=== PATIENT | female | born 1945 | race Caucasian/White ===

== ENCOUNTER 2018-05-22 06:49 | Outpatient (CLI) | payer MEDICARE, OTHER ==
[~2018-05-22] VITALS: Ht 157.5 cm; Wt 62.6 kg
[2018-05-22] MEDS ORDERED: DULA1.5P2 SQ (16:08)
[2018-05-22] MEDS ORDERED: CETI10TA17 PO (16:08)
[2018-05-22] MEDS ORDERED: AMLO5TAB7 PO (16:08)
[2018-05-22] MEDS ORDERED: MONT10TA24 PO (16:08)
[2018-05-22] MEDS ORDERED: LINA1TAB5 PO (16:08)
[2018-05-22] MEDS ORDERED: ALEN70TA47 PO (16:08)
[2018-05-22] MEDS ORDERED: MULT1TAB69 PO (16:08)
[2018-05-22] MEDS ORDERED: RANI150T46 PO (16:08)
[2018-05-22] MEDS ORDERED: OLME40TA18 PO (16:08)
[2018-05-22] MEDS ORDERED: GLYB6TAB3 PO (16:08)
[2018-05-22] MEDS ORDERED: LINA145C PO (16:08)
== END 2018-05-22 16:17 | disposition home or self-care (01) ==
LOC: PREOP 06:49
PROVIDERS: ATTEND Specialist
DX: Z01.818 Encounter for other preprocedural examination (principal)

== ENCOUNTER 2018-05-26 08:54 | Day surgery (SDC) | payer MEDICARE, OTHER ==
[~2018-05-26] VITALS: Ht 157.5 cm; Wt 62.6 kg
[~2018-05-26 08:54] MED LIST: ALEN70TA47 PO; AMLO5TAB7 PO; CETI10TA17 PO; DULA1.5P2 SQ; GLYB6TAB3 PO; LINA145C PO; LINA1TAB5 PO; MONT10TA24 PO; MULT1TAB69 PO; OLME40TA18 PO; RANI150T46 PO
--- OUTSIDE RECORDS SUMMARY | 2018-05-26 08:59 | XMS REPORT ---
Author Author Hung Jaramillo [facility] Address [address] [place], [place] [id number] Care Team Providers Care Processing Lead Name Role Phone Hung Jaramillo PCP Hung Jaramillo PreferredProvider Allergies and Adverse Reactions Name Reaction Notes seasonal allergies Demerol SULFA (SULFONAMIDES) Plan of Treatment Planned Activity Comments Planned Date Planned Time Plan/Goal CBC with Auto 07/26/2017 12:00 AM Hemoglobin A1c 02/08/2013 12:00 AM CBC With Auto Differential 03/26/2014 12:00 AM CMP 03/26/2014 12:00 AM Lipid profile 03/26/2014 12:00 AM Medications Active Name Start Date Estimated Completion Date SIG Comments aspirin 81 mg oral tablet take 1 tablet by oral route daily Jentadueto 2.5-1,000 mg oral tablet 06/12/2013 TAKE 1 TABLET BY MOUTH TWICE DAILY WITH MEALS glyburide micronized 6 mg oral tablet 06/19/2013 TAKE 1/2 TABLET EACH MORNING AND 1 TABLET EACH EVENING alendronate 70 mg oral tablet 09/18/2013 TAKE 1 TABLET BY MOUTH ONCE WEEKLY IN THE MORNING AT LEAST 30 MINUTES BEFORE 1ST FOOD/BEVERAGE OR MEDICATION OF THE DAY montelukast 10 mg oral tablet 10/11/2013 TAKE 1 TABLET BY MOUTH EVERY DAY Jentadueto 2.5-1,000 mg oral tablet 12/05/2013 TAKE 1 TABLET BY MOUTH TWICE DAILY WITH MEALS Benicar HCT 40-25 mg oral tablet 12/25/2013 TAKE 1 TABLET BY MOUTH EVERY DAY alendronate 70 mg oral tablet 03/08/2014 TAKE 1 TABLET BY MOUTH ONCE WEEKLY IN THE MORNING AT LEAST 30 MINUTES BEFORE 1ST FOOD/BEVERAGE OR MEDICATION OF THE DAY Jentadueto 2.5-1,000 mg oral tablet 05/09/2014 TAKE 1 TABLET BY MOUTH TWICE DAILY WITH MEALS montelukast 10 mg oral tablet 07/16/2014 TAKE 1 TABLET BY MOUTH EVERY DAY glyburide micronized 6 mg oral tablet 07/22/2014 TAKE 1/2 TABLET EACH MORNING AND 1 TABLET EACH EVENING alendronate 70 mg oral tablet 07/22/2014 TAKE 1 TABLET BY MOUTH ONCE WEEKLY IN THE MORNING AT LEAST 30 MINUTES BEFORE 1ST FOOD/BEVERAGE OR MEDICATION OF THE DAY Jentadueto 2.5-1,000 mg oral tablet 09/10/2014 TAKE 1 TABLET BY MOUTH TWICE DAILY WITH MEALS Benicar HCT 40-25 mg oral tablet 10/31/2014 TAKE 1 TABLET BY MOUTH EVERY DAY alendronate 70 mg oral tablet 11/11/2014 TAKE 1 TABLET BY MOUTH ONCE WEEKLY IN THE MORNING AT LEAST 30 MINUTES BEFORE 1ST FOOD/BEVERAGE OR MEDICATION OF THE DAY alendronate 70 mg oral tablet 03/06/2015 TAKE 1 TABLET BY MOUTH ONCE WEEKLY IN THE MORNING AT LEAST 30 MINUTES BEFORE 1ST FOOD/BEVERAGE OR MEDICATION OF THE DAY alendronate 70 mg oral tablet 06/27/2015 TAKE 1 TABLET BY MOUTH ONCE WEEKLY IN THE MORNING AT LEAST 30 MINUTES BEFORE 1ST FOOD/BEVERAGE OR MEDICATION OF THE DAY montelukast 10 mg oral tablet 07/21/2015 TAKE 1 TABLET BY MOUTH EVERY DAY Jentadueto 2.5-1,000 mg oral tablet 08/11/2015 TAKE 1 TABLET BY MOUTH TWICE DAILY WITH MEALS glyburide micronized 6 mg oral tablet 08/14/2015 TAKE 1/2 TABLET BY MOUTH EACH MORNING AND 1 TABLET BY MOUTH EACH EVENING Benicar HCT 40-25 mg oral tablet 12/10/2015 TAKE 1 TABLET BY MOUTH EVERY DAY Contour Test Strips miscellaneous strip 01/16/2016 test blood sugar daily. ICD-10 E11.9 alendronate 70 mg oral tablet 02/06/2016 TAKE 1 TABLET BY MOUTH ONCE WEEKLY IN THE MORNING AT LEAST 30 MINUTES BEFORE 1ST FOOD/BEVERAGE OR MEDICATION OF THE DAY alendronate 70 mg oral tablet 02/06/2016 TAKE 1 TABLET BY MOUTH ONCE WEEKLY IN THE MORNING AT LEAST 30 MINUTES BEFORE 1ST FOOD/BEVERAGE OR MEDICATION OF THE DAY alendronate 70 mg oral tablet 06/25/2016 TAKE 1 TABLET BY MOUTH ONCE WEEKLY IN THE MORNING AT LEAST 30 MINUTES BEFORE 1ST FOOD/BEVERAGE OR MEDICATION OF THE DAY alendronate 70 mg oral tablet 06/25/2016 TAKE 1 TABLET BY MOUTH ONCE WEEKLY IN THE MORNING AT LEAST 30 MINUTES BEFORE 1ST FOOD/BEVERAGE OR MEDICATION OF THE DAY glyburide micronized 6 mg oral tablet 09/14/2016 TAKE 1/2 TABLET BY MOUTH EACH MORNING AND 1 TABLET BY MOUTH EACH EVENING *ASCENSIA CONTOUR TEST STRIPS 03/03/2017 TEST BLOOD SUGAR EVERY DAY amlodipine 5 mg oral tablet 03/31/2017 05/05/2018 TAKE 1 TABLET BY MOUTH ONCE EVERY DAY [facility] 04/05/2017 test blood sugars daily ICD-10 E11.9 Jentadueto 2.5-1,000 mg oral tablet 06/03/2017 04/29/2018 TAKE 1 TABLET BY MOUTH TWICE DAILY WITH MEALS montelukast 10 mg oral tablet 07/07/2017 07/02/2018 TAKE 1 TABLET BY MOUTH EVERY DAY alendronate 70 mg oral tablet 07/21/2017 06/22/2018 TAKE 1 TABLET BY MOUTH ONCE WEEKLY IN THE MORNING AT LEAST 30 MINUTES BEFORE 1ST FOOD/BEVERAGE OR MEDICATION OF THE DAY Linzess 145 mcg oral capsule 09/05/2017 04/03/2018 TAKE 1 CAPSULE BY MOUTH DAILY ON AN EMPTY STOMACH AT LEAST 30MIN BEFORE 1ST MEAL OF THE DAY glyburide micronized 6 mg oral tablet 10/12/2017 07/03/2018 TAKE 1/2 TABLET BY MOUTH EACH MORNING AND 1 TABLET BY MOUTH EACH EVENING Trulicity 0.75 mg/0.5 mL subcutaneous pen injector 11/03/2017 INJECT 0.5ML (0.75MG) SUB-Q ONCE WEEKLY ROTATING INJECTION SITES olmesartan 40 mg oral tablet 02/09/2018 TAKE 1 TABLET BY MOUTH DAILY Name Start Date Expiration Date SIG Comments amoxicillin 500 mg oral capsule 08/11/2009 08/21/2009 take 2 capsules by oral route 3 times a day for 5 days Medrol (Kurt) 4 mg oral tablets,dose pack 08/11/2009 08/21/2009 take as directed for 5 days Augmentin 875-125 mg oral tablet 10/23/2009 11/20/2009 take 1 tablet by oral route every 12 hours for 14 days OneTouch Ultra Test miscellaneous strip 11/23/2010 11/23/2010 use as directed Levaquin 750 mg oral tablet 05/19/2011 06/02/2011 take 1 tablet (750 mg) by oral route once daily for 7 days Medrol (Kurt) 4 mg oral tablets,dose pack 07/15/2011 07/15/2011 take as directed diclofenac sodium 50 mg oral tablet,delayed release (/EC) 12/29/20112011 TAKE 1 TABLET BY MOUTH TWICE DAILY glyburide micronized 6 mg oral tablet 04/24/2012 06/29/2012 TAKE 1/2 TABLET EACH MORNING AND 1 TABLET EACH EVENING Levaquin 500 mg oral tablet 05/09/2012 05/23/2012 take 1 tablet (500 mg) by oral route once daily for 7 days pantoprazole 40 mg oral tablet,delayed release (DR/EC) 05/16/2012 06/15/2012 TAKE 1 TABLET BY MOUTH EVERY DAY metformin 500 mg oral tablet extended release 24 hr 06/22/2012 07/22/2012 TAKE 2 TABLETS BY MOUTH TWICE DAILY WelChol 625 mg oral tablet 08/03/2012 09/02/2012 TAKE 3 TABLETS BY MOUTH TWICE DAILY amoxicillin-pot clavulanate 875-125 mg oral tablet 09/04/2012 09/14/2012 TAKE 1 TABLET BY MOUTH EVERY 12 HOURS Levbid 0.375 mg oral tablet extended release 12 hr 10/02/2012 10/12/2012 take 1 tablet (0.375 mg) by oral route every 12 hours for 10 days amlodipine 5 mg oral tablet 10/09/2012 02/21/2014 TAKE 1 TABLET BY MOUTH EVERY DAY Benicar HCT 40-25 mg oral tablet 10/09/2012 11/13/2013 TAKE 1 TABLET BY MOUTH EVERY DAY montelukast 10 mg oral tablet 10/09/2012 10/04/2013 TAKE 1 TABLET BY MOUTH EVERY DAY Jentadueto 2.5-1,000 mg oral tablet 11/01/2012 05/30/2013 take 1 tablet by oral route 2 times per day with meals for 30 days Exosome Diagnostics2 miscellaneous kit 11/08/2012 11/08/2012 test BS dailyICD-9 250.00 Zithromax Z-Kurt 250 mg oral tablet 05/21/2013 05/31/2013 take 2 tablets (500 mg) by oral route once daily for 1 day then 1 tablet (250 mg) by oral route once daily for 4 days tramadol 50 mg oral tablet 01/08/2011 10/02/2012 TAKE 1 TABLET BY MOUTH TWICE DAILY Voltaren 1 % topical gel 04/09/2011 10/02/2012 apply 4 gram to the affected area(s) by topical route 4 times per day for 30 days Pennsaid 1.5 % topical drops 08/05/2011 10/02/2012 apply 40 drops to affected area by topical route 4 times per day promethazine-codeine 6.25-10 mg/5 mL oral syrup 08/13/2013 take 5 milliliters by oral route every 6 hours as needed, not to exceed 30 mL in 24 hours Augmentin 875-125 mg oral tablet 10/01/2013 10/08/2013 take 1 tablet by oral route every 12 hours for 7 days amoxicillin 875 mg oral tablet 10/26/2013 11/23/2013 take 1 tablet (875 mg) by oral route every 12 hours for 14 days amoxicillin 875 mg oral tablet 06/17/2014 07/01/2014 take 1 tablet (875 mg) by oral route every 12 hours for 14 days Zithromax Z-Kurt 250 mg oral tablet 08/09/2014 08/14/2014 take 2 tablets (500 mg) by oral route once daily for 1 day then 1 tablet (250 mg) by oral route once daily for 4 days Zithromax Z-Kurt 250 mg oral tablet 08/15/2014 take 2 tablets (500 mg) by oral route once daily for 1 day then 1 tablet (250 mg) by oral route once daily for 4 days amoxicillin 875 mg oral tablet 04/02/2015 04/16/2015 take 1 tablet (875 mg) by oral route every 12 hours for 14 days Invokana 300 mg oral tablet 01/16/2016 02/15/2016 take 1 tablet (300 mg) by oral route once daily before the first meal of the day for 30 days Tamiflu 75 mg oral capsule 07/28/2016 08/07/2016 take 1 capsule (75 mg) by oral route once daily for 10 days amoxicillin 875 mg oral tablet 07/28/2016 08/11/2016 take 1 tablet (875 mg) by oral route every 12 hours for 14 days Nexium 40 mg oral capsule,delayed release(DR/EC) 02/08/2017 03/10/2017 take 1 capsule (40 mg) by oral route once daily for 30 days Cipro 500 mg oral tablet 02/11/2017 02/18/2017 take 1 tablet (500 mg) by oral route every 12 hours for 7 days Augmentin 875-125 mg oral tablet 08/15/2017 08/22/2017 take 1 tablet by oral route every 12 hours for 7 days amoxicillin-pot clavulanate 875-125 mg oral tablet 08/22/2017 08/29/2017 TAKE 1 TABLET BY MOUTH EVERY 12 HOURS FOR 7 DAYS Discontinued Name Start Date Discontinued Date SIG Comments Benicar 40 mg oral tablet 09/18/2009 take 1 tablet (40 mg) by oral route once daily Zyrtec 10 mg oral tablet 08/13/2013 take 1 tablet (10 mg) by oral route once daily Ultracet 37.5-325 mg oral tablet 01/13/2010 1 tab bid/PRN meloxicam 15 mg oral tablet 01/20/2010 02/12/2010 take 1 tablet (15 mg) by oral route once daily for 30 days Anusol-HC 2.5 % rectal cream 09/28/2012 11/14/2012 apply to the affected area( s) by topical route 4 times per day baclofen 10 mg oral tablet 09/29/2012 11/14/2012 take 1 tablet by oral route 3 times a day as needed Nasonex 50 mcg/actuation nasal spray,non-aerosol 05/16/2013 09/08/2016 spray 2 sprays in each nostril by intranasal route once daily Zithromax Z-Kurt 250 mg oral tablet 08/13/2013 10/26/2013 take 2 tablets (500 mg) by oral route once daily for 1 day then 1 tablet (250 mg) by oral route once daily for 4 days Fosamax 70 mg oral tablet 02/05/2016 09/08/2016 take 1 tablet (70 mg) by oral route once weekly in the morning, at least 30 min before first food, beverage, or medication of day amoxicillin 875 mg oral tablet 08/13/2016 09/08/2016 take 1 tablet (875 mg) by oral route every 12 hours for 14 days Benicar HCT 40-25 mg oral tablet 01/17/2017 02/14/2017 TAKE 1 TABLET BY MOUTH EVERY DAY Amitiza 8 mcg oral capsule 01/31/2017 02/02/2017 take 1 capsule (8 mcg) by oral route 2 times per day with food and water for 10 days Benicar 40 mg oral tablet 02/14/2017 03/02/2018 take 1 tablet (40 mg) by oral route once daily ciprofloxacin HCl 0.2 % otic (ear) dropperette 04/15/2017 03/02/2018 instill 0.25 milliliter (0.5 mg) into left ear by otic route every 12 hours for 7 days Problem List Description Status Onset acid reflux Active Diabetes mellitus, type II Active Hypercholesterolemia Active Hypertension Active Lumbar spondylosis Active Scoliosis Active SI joint pain Active Vital Signs Date Time BP-Sys(mm[Hg] BP-Park(mm[Hg]) HR(bpm) RR(rpm) Temp WT HT HC BMI BSA BMI Percentile O2 Sat(%) 03/02/2018 1:42:00 PM 144 mmHg 80 mmHg 107 bpm 18 rpm 98.2 F 138.5 lbs 62 in 25.3317 kg/m 1.6578 m 97 % 04/15/2017 10:19:00 AM 134 mmHg 76 mmHg 82 bpm 18 rpm 97.4 F 144 lbs 62 in 26.34 kg/m2 1.69 m2 99 % 02/09/2017 8:31:00 AM 132 mmHg 64 mmHg 84 bpm 16 rpm 97.2 F 144 lbs 62 in 26.34 kg/m2 1.6904 m 98 % 02/08/2017 3:10:00 PM 130 mmHg 63 mmHg 86 bpm 18 rpm 98.2 F 147 lbs 61 in 27.7751 kg/m 1.69 m2 98 % 01/31/2017 2:57:00 PM 136 mmHg 74 mmHg 88 bpm 16 rpm 98 F 150 lbs 61 in 28.34 kg/m2 1.7112 m 97 % 09/08/2016 11:14:00 AM 130 mmHg 82 mmHg 86 bpm 16 rpm 98.4 F 147 lbs 61 in 27.7751 kg/m 1.69 m2 98 % 07/28/2016 11:10:00 AM 128 mmHg 74 mmHg 103 bpm 18 rpm 99.6 F 149 lbs 61 in 28.15 kg/m2 1.7055 m 98 % 01/16/2016 9:31:00 AM 136 mmHg 68 mmHg 102 bpm 16 rpm 98.8 F 150 lbs 61 in 28.342 kg/m 1.71 m2 97 % 04/02/2015 9:07:00 AM 148 mmHg 80 mmHg 94 bpm 18 rpm 98.9 F 155 lbs 61 in 29.29 kg/m2 1.7395 m 01/13/2015 8:33:00 AM 126 mmHg 64 mmHg 71 bpm 18 rpm 98.2 F 156 lbs 61 in 29.4756 kg/m 1.75 m2 12/13/2014 8:33:00 AM 126 mmHg 76 mmHg 80 bpm 18 rpm 98 F 153 lbs 61 in 28.91 kg/m2 1.73 m2 06/17/2014 2:06:00 PM 124 mmHg 68 mmHg 96 bpm 20 rpm 97.3 F 153 lbs 61 in 28.9088 kg/m 1.7283 m 03/26/2014 3:03:00 PM 128 mmHg 64 mmHg 88 bpm 18 rpm 98.8 F 155 lbs 61 in 29.29 kg/m2 1.74 m2 10/26/2013 9:07:00 AM 136 mmHg 78 mmHg 96 bpm 18 rpm 97.6 F 150.375 lbs 61 in 28.4128 kg/m 1.7134 m 100 % 10/01/2013 3:36:00 PM 142 mmHg 66 mmHg 107 bpm 18 rpm 99.1 F 152.125 lbs 61 in 28.74 kg/m2 1.72 m2 98 % 08/13/2013 9:18:00 AM 136 mmHg 80 mmHg 88 bpm 18 rpm 98 F 149 lbs 63 in 26.3939 kg/m 1.7333 m 05/16/2013 8:50:00 AM 132 mmHg 74 mmHg 88 bpm 18 rpm 98.4 F 150 lbs 63 in 26.57 kg/m2 1.74 m2 01/16/2013 10:33:00 AM 110 mmHg 62 mmHg 84 bpm 16 rpm 96.8 F 141 lbs 63 in 24.9768 kg/m 1.6861 m 11/14/2012 3:47:00 PM 120 mmHg 68 mmHg 84 bpm 20 rpm 98.6 F 141 lbs 63 in 24.98 kg/m2 1.69 m2 10/09/2012 9:12:00 AM 142 mmHg 74 mmHg 110 bpm 18 rpm 98.6 F 135 lbs 63 in 23.9139 kg/m 1.6498 m 10/04/2012 2:14:00 PM 140 mmHg 80 mmHg 124 bpm 18 rpm 98.3 F 146 lbs 63 in 25.86 kg/m2 1.72 m2 98 % 10/02/2012 3:10:00 PM 120 mmHg 70 mmHg 124 bpm 18 rpm 97.9 F 146.5 lbs 63 in 25.951 kg/m 1.7187 m 96 % 06/28/2012 10:01:00 AM 134 mmHg 64 mmHg 88 bpm 18 rpm 97.2 F 152 lbs 64 in 26.09 kg/m2 1.76 m2 05/09/2012 10:35:00 AM 130 mmHg 64 mmHg 88 bpm 18 rpm 98 F 149 lbs 64 in 25.5755 kg/m 1.747 m 04/28/2012 8:40:00 AM 108 mmHg 70 mmHg 66 bpm 16 rpm 98.2 F 150 lbs 64 in 25.75 kg/m2 1.75 m2 04/18/2012 2:36:00 PM 125 mmHg 75 mmHg 88 bpm 18 rpm 97.8 F 150 lbs 64 in 25.7472 kg/m 1.7528 m 98 % 03/29/2012 9:56:00 AM 132 mmHg 80 mmHg 74 bpm 16 rpm 96.8 F 152 lbs 64 in 26.09 kg/m2 1.76 m2 12/20/2011 8:41:00 AM 112 mmHg 70 mmHg 70 bpm 16 rpm 97.1 F 152 lbs 64 in 26.0905 kg/m 1.7645 m 11/04/2011 8:59:00 AM 110 mmHg 60 mmHg 72 bpm 16 rpm 97.5 F 152 lbs 64 in 26.09 kg/m2 1.76 m2 08/05/2011 8:37:00 AM 126 mmHg 64 mmHg 72 bpm 16 rpm 97.8 F 154 lbs 64 in 26.4338 kg/m 1.776 m 06/14/2011 10:55:00 AM 148 mmHg 72 mmHg 84 bpm 20 rpm 98.3 F 151 lbs 63.5 in 26.33 kg/m2 1.75 m2 05/19/2011 9:08:00 AM 148 mmHg 82 mmHg 80 bpm 18 rpm 98.6 F 153 lbs 63.5 in 26.6773 kg/m 1.7633 m 04/28/2011 8:50:00 AM 110 mmHg 62 mmHg 80 bpm 16 rpm 97.8 F 04/09/2011 10:24:00 AM 124 mmHg 80 mmHg 76 bpm 16 rpm 97.9 F 152 lbs 63.5 in 26.503 kg/m 1.7576 m 09/23/2010 10:38:00 AM 140 mmHg 80 mmHg 92 bpm 20 rpm 98.3 F 149 lbs 08/20/2010 10:07:00 AM 150 mmHg 78 mmHg 88 bpm 20 rpm 99.6 F 148 lbs 07/06/2010 8:05:00 AM 124 mmHg 80 mmHg 88 bpm 16 rpm 96.9 F 150 lbs 05/21/2010 8:02:00 AM 110 mmHg 62 mmHg 80 bpm 16 rpm 97.2 F 149.25 lbs 05/08/2010 10:53:00 AM 130 mmHg 74 mmHg 88 bpm 18 rpm 97.7 F 142 lbs 97 % 05/04/2010 4:08:00 PM 122 mmHg 78 mmHg 82 bpm 98.1 F 149.375 lbs 99 % 02/12/2010 1:36:00 PM 126 mmHg 82 mmHg 72 bpm 18 rpm 97.4 F 145 lbs 01/13/2010 10:43:00 AM 132 mmHg 84 mmHg 72 bpm 16 rpm 99 F 144 lbs 10/23/2009 2:21:00 PM 130 mmHg 78 mmHg 72 bpm 20 rpm 147 lbs 09/24/2009 4:27:00 PM 134 mmHg 70 mmHg 72 bpm 16 rpm 98.6 F 145 lbs 09/18/2009 8:35:00 AM 144 mmHg 82 mmHg 88 bpm 98.7 F 146 lbs 08/27/2009 4:09:00 PM 142 mmHg 76 mmHg 72 bpm 16 rpm 98.3 F 149 lbs 08/11/2009 3:46:00 PM 154 mmHg 90 mmHg 88 bpm 20 rpm 97.9 F 147.25 lbs 63 in 26.0839 kg/m 1.723 m 08/05/2009 9:32:00 AM 154 mmHg 80 mmHg 86 bpm 24 rpm 98.7 F 149 lbs 07/02/2009 11:32:00 AM 148 mmHg 74 mmHg 80 bpm 16 rpm 98.6 F 149 lbs 06/18/2009 4:06:00 PM 152 mmHg 84 mmHg 72 bpm 16 rpm 98.6 F 149 lbs Social History Name Description Comments Lives with spouse in a one-level house with adult grown children High school graduate Has never used alcohol Denies illicit substance abuse 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 Tobacco Never smoker History of Procedures Date Ordered Description Order Status 04/09/2011 12:00 AM Misbah [id number] ONEYDA Reviewed 04/09/2011 12:00 AM INJ TENDON SHEATH/LIGAMENT Reviewed 05/06/2011 12:00 AM DRAIN/INJ JOINT/BURSA W/O US Reviewed 05/06/2011 12:00 AM HYALURONAN OR DERIVATIVE, SYNVISC, FOR INTRA-ARTICULAR INJECTION Reviewed 05/13/2011 12:00 AM DRAIN/INJ JOINT/BURSA W/O US Reviewed 05/13/2011 12:00 AM HYALURONAN OR DERIVATIVE, SYNVISC, FOR INTRA-ARTICULAR INJECTION Reviewed 05/20/2011 12:00 AM DRAIN/INJ JOINT/BURSA W/O US Reviewed 05/20/2011 12:00 AM HYALURONAN OR DERIVATIVE, SYNVISC, FOR INTRA-ARTICULAR INJECTION Reviewed 05/19/2011 12:00 AM FLU VACCINE 3 YRS & > IM Reviewed 06/14/2011 12:00 AM Decadron Inj. per 1mg-[facility] [place] [id number] Reviewed 06/14/2011 12:00 AM Depo-Medrol 80 Mg [facility] [id number] Reviewed 01/08/2016 12:00 AM MAMMOGRAM BOTH BREASTS Reviewed 01/08/2016 12:00 AM COMPLETE CBC W/AUTO DIFF WBC Reviewed 01/08/2016 12:00 AM COMPREHEN METABOLIC PANEL Reviewed 01/08/2016 12:00 AM LIPID PANEL Reviewed 01/08/2016 12:00 AM GLYCOSYLATED HEMOGLOBIN TEST Reviewed 08/05/2011 12:00 AM DRAIN/INJ JOINT/BURSA W/O US Reviewed 08/05/2011 12:00 AM Kenalog 40 Mg Im-[facility] [place]#[id number] Reviewed 11/04/2011 12:00 AM DRAIN/INJ JOINT/BURSA W/O US Reviewed 11/04/2011 12:00 AM Kenalog 40 Mg Im-[facility] [place]#[id number] Reviewed 09/18/2009 12:00 AM COMPLETE CBC W/AUTO DIFF WBC Reviewed 09/18/2009 12:00 AM COMPREHEN METABOLIC PANEL Reviewed 09/18/2009 12:00 AM LIPID PANEL Reviewed 09/18/2009 12:00 AM GLYCOSYLATED HEMOGLOBIN TEST Reviewed 09/08/2016 12:00 AM Rocephin 1 gram Injection Reviewed 02/25/2012 12:00 AM IMMUNIZATION ADMIN Reviewed 02/25/2012 12:00 AM TDAP VACCINE 7 YRS/> IM Reviewed 01/31/2017 12:00 AM COMPLETE CBC W/AUTO DIFF WBC Returned 01/31/2017 12:00 AM COMPREHEN METABOLIC PANEL Returned 01/31/2017 12:00 AM GLYCOSYLATED HEMOGLOBIN TEST Returned 01/31/2017 12:00 AM ASSAY THYROID STIM HORMONE Returned 01/31/2017 12:00 AM VITAMIN B-12 Returned 02/07/2017 12:00 AM METABOLIC PANEL TOTAL CA Returned 02/08/2017 12:00 AM METABOLIC PANEL TOTAL CA Returned 02/08/2017 12:00 AM COMPLETE CBC W/AUTO DIFF WBC Returned 02/09/2017 12:00 AM COMPLETE CBC W/AUTO DIFF WBC Returned 02/09/2017 12:00 AM COMPREHEN METABOLIC PANEL Returned 02/14/2017 12:00 AM METABOLIC PANEL TOTAL CA Returned 02/16/2017 12:00 AM METABOLIC PANEL TOTAL CA Returned 03/23/2012 12:00 AM MAMMOGRAM SCREENING Reviewed 03/29/2012 12:00 AM Misbah [id number] ONEYDA Reviewed 03/29/2012 12:00 AM INJ TENDON SHEATH/LIGAMENT Reviewed 04/18/2012 12:00 AM METABOLIC PANEL TOTAL CA Reviewed 04/18/2012 12:00 AM COMPLETE CBC W/AUTO DIFF WBC Reviewed 04/18/2012 12:00 AM GLYCOSYLATED HEMOGLOBIN TEST Reviewed 04/05/2017 12:00 AM MAMMOGRAM BOTH BREASTS Returned 07/26/2017 12:00 AM COMPREHEN METABOLIC PANEL Returned 07/26/2017 12:00 AM LIPID PANEL Returned 07/26/2017 12:00 AM GLYCOSYLATED HEMOGLOBIN TEST Returned 09/25/2012 12:00 AM COMPLETE CBC W/AUTO DIFF WBC Reviewed 09/25/2012 12:00 AM COMPREHEN METABOLIC PANEL Reviewed 09/25/2012 12:00 AM GLYCOSYLATED HEMOGLOBIN TEST Reviewed 09/25/2012 12:00 AM ASSAY THYROID STIM HORMONE Reviewed 09/25/2012 12:00 AM ASSAY TOXIN OR ANTITOXIN Reviewed 09/25/2012 12:00 AM OVA AND PARASITES SMEARS Reviewed 02/08/2013 12:00 AM ROUTINE VENIPUNCTURE Reviewed 02/08/2013 12:00 AM COMPLETE CBC W/AUTO DIFF WBC Reviewed 02/08/2013 12:00 AM COMPREHEN METABOLIC PANEL Reviewed 02/08/2013 12:00 AM LIPID PANEL Reviewed 05/16/2013 12:00 AM PNEUMOCOCCAL VACC 7 FIDE IM Reviewed 01/13/2010 12:00 AM Misbah [id number] ONEYDA Reviewed 01/13/2010 12:00 AM INJ TENDON SHEATH/LIGAMENT Reviewed 04/07/2010 12:00 AM COMPLETE CBC W/AUTO DIFF WBC Reviewed 04/07/2010 12:00 AM COMPREHEN METABOLIC PANEL Reviewed 04/07/2010 12:00 AM LIPID PANEL Reviewed 04/07/2010 12:00 AM GLYCOSYLATED HEMOGLOBIN TEST Reviewed 05/21/2010 12:00 AM Misbah [id number] ONEYDA Reviewed 05/21/2010 12:00 AM INJ TENDON SHEATH/LIGAMENT Reviewed 08/05/2009 12:00 AM X-RAY EXAM OF ELBOW Reviewed 03/26/2014 12:00 AM GLYCOSYLATED HEMOGLOBIN TEST Reviewed 09/23/2010 12:00 AM METABOLIC PANEL TOTAL CA Reviewed 09/23/2010 12:00 AM COMPLETE CBC W/AUTO DIFF WBC Reviewed 09/23/2010 12:00 AM GLYCOSYLATED HEMOGLOBIN TEST Reviewed 06/17/2014 12:00 AM COMPLETE CBC W/AUTO DIFF WBC Reviewed 06/17/2014 12:00 AM COMPREHEN METABOLIC PANEL Reviewed 06/17/2014 12:00 AM ASSAY THYROID STIM HORMONE Reviewed 06/17/2014 12:00 AM ASSAY OF PARATHORMONE Reviewed 12/13/2014 12:00 AM X-RAY EXAM OF KNEE 3 Reviewed 01/07/2015 12:00 AM COMPLETE CBC W/AUTO DIFF WBC Reviewed 01/07/2015 12:00 AM COMPREHEN METABOLIC PANEL Reviewed 01/07/2015 12:00 AM LIPID PANEL Reviewed 01/07/2015 12:00 AM GLYCOSYLATED HEMOGLOBIN TEST Reviewed 01/07/2015 12:00 AM MAMMOGRAM SCREENING Reviewed Results Summary Date and Description Results 04/14/2010 8:53 AM TRIGLYCERIDES 121.0 mg/dLCHOLESTEROL 177.0 mg/dLHDL 41.0 mg/ dLTOT CHOL/HDL 4.3 LDL (CALC) 112.0 mg/dLGLYCOHEMOGLOBIN A1C 7.20 %GLUCOSE 128.0 mg/dLSODIUM 136.0 mmol/LPOTASSIUM 4.20 mmol/LCHLORIDE 100.0 mmol/LCO2 27.0 mmol/LBUN 21.0 mg/dLCREATININE 0.70 mg/dLSGOT/AST 14.0 IU/LSGPT/ALT 12.0 IU /LALK PHOS 74.0 IU/LTOTAL PROTEIN 7.20 g/dLALBUMIN 4.20 g/dLTOTAL BILI 1.20 mg/ dLCALCIUM 9.80 mg/dLAGE 64 GFR NonAA 85 GFR AA 103 eGFR >60 mL/min/1.73 m2eGFR AA* >60 WBC 7.7 RBC 4.25 HGB 13.40 g/dLHCT 39.40 %MCV 93.0 fLMCH 31.50 pgMCHC 34.0 g/dLRDW SD 45 RDW CV 13.30 %MPV 9.80 fLPLT 396 NRBC# 0.00 NRBC% 0.0 %NEUT 49.40 %%LYMP 41.50 %%MONO 6.90 %%EOS 1.80 %%BASO 0.40 %#NEUT 3.81 #LYMP 3.20 # MONO 0.53 #EOS 0.14 #BASO 0.03 MANUAL DIFF NOT IND 09/23/2010 11:27 AM GLYCOHEMOGLOBIN A1C 7.60 %GLUCOSE 188.0 mg/dLSODIUM 139.0 mmol/LPOTASSIUM 3.90 mmol/LCHLORIDE 101.0 mmol/LCO2 26.0 mmol/LBUN 22.0 mg/ dLCREATININE 0.70 mg/dLCALCIUM 9.90 mg/dLAGE 65 GFR NonAA 85 GFR AA 103 eGFR > 60 mL/min/1.73 m2eGFR AA* >60 WBC 15.0 RBC 4.08 HGB 12.70 g/dLHCT 39.0 %MCV 96.0 fLMCH 31.10 pgMCHC 32.60 g/dLRDW SD 48 RDW CV 13.50 %MPV 10.20 fLPLT 404 NRBC# 0.00 NRBC% 0.0 %NEUT 71.90 %%LYMP 20.40 %%MONO 7.0 %%EOS 0.50 %%BASO 0.20 %#NEUT 10.79 #LYMP 3.06 #MONO 1.05 #EOS 0.07 #BASO 0.03 MANUAL DIFF SEE BELOW SEGS 65 BANDS 4 LYMPHS 20 MONOS 11 04/18/2012 3:15 PM GLUCOSE 154.0 mg/dLSODIUM 139.0 mmol/LPOTASSIUM 4.80 mmol/ LCHLORIDE 104.0 mmol/LCO2 23.0 mmol/LBUN 38.0 mg/dLCREATININE 1.20 mg/dLCALCIUM 10.10 mg/dLAGE 66 GFR NonAA 45 GFR AA 55 eGFR 45 eGFR AA* 55 WBC 8.7 RBC 3.84 HGB 11.70 g/dLHCT 35.80 %MCV 93.0 fLMCH 30.50 pgMCHC 32.70 g/dLRDW SD 47 RDW CV 13.90 %MPV 10.10 fLPLT 446 NRBC# 0.00 NRBC% 0.0 %NEUT 57.10 %%LYMP 33.60 %%MONO 6.70 %%EOS 2.30 %%BASO 0.30 %#NEUT 4.95 #LYMP 2.91 #MONO 0.58 #EOS 0.20 #BASO 0.03 MANUAL DIFF NOT IND GLYCOHEMOGLOBIN A1C 7.60 % 09/25/2012 9:24 AM GLUCOSE 242.0 mg/dLSODIUM 134.0 mmol/LPOTASSIUM 4.60 mmol/ LCHLORIDE 98.0 mmol/LCO2 24.0 mmol/LBUN 21.0 mg/dLCREATININE 0.90 mg/dLSGOT/AST 16.0 IU/LSGPT/ALT 22.0 IU/LALK PHOS 117.0 IU/LTOTAL PROTEIN 7.60 g/dLALBUMIN 3.70 g/dLTOTAL BILI 0.60 mg/dLCALCIUM 10.20 mg/dLAGE 67 GFR NonAA 63 GFR AA 76 eGFR 60 eGFR AA* 60 TSH 1.370 uIU/mLWBC 9.6 RBC 3.40 HGB 10.0 g/dLHCT 31.30 % MCV 92.0 fLMCH 29.40 pgMCHC 31.90 g/dLRDW SD 45 RDW CV 13.80 %MPV 8.90 fLPLT 1028 PLTS PLTS NRBC# 0.00 NRBC% 0.0 %NEUT 75.10 %%LYMP 15.80 %%MONO 7.70 %%EOS 1.10 %%BASO 0.30 %#NEUT 7.24 #LYMP 1.52 #MONO 0.74 #EOS 0.11 #BASO 0.03 MANUAL DIFF SEE BELOW SEGS 76 BANDS 4 LYMPHS 12 MONOS 10 GLYCOHEMOGLOBIN A1C 7.80 % 09/25/2012 4:34 PM C DIFFICILE NEGATIVE -- C DIFF TOXIN NOT DETECTED SOURCE: STOOL 02/28/2013 8:15 AM WBC 7.7 RBC 3.98 HGB 11.70 g/dLHCT 36.60 %MCV 92.0 fLMCH 29.40 pgMCHC 32.0 g/dLRDW SD 54 RDW CV 15.90 %MPV 10.0 fLPLT 500 NRBC# 0.00 NRBC % 0.0 %NEUT 60.10 %%LYMP 30.0 %%MONO 8.0 %%EOS 1.40 %%BASO 0.50 %#NEUT 4.64 # LYMP 2.32 #MONO 0.62 #EOS 0.11 #BASO 0.04 MANUAL DIFF NOT IND GLUCOSE 152.0 mg/ dLSODIUM 138.0 mmol/LPOTASSIUM 4.80 mmol/LCHLORIDE 103.0 mmol/LCO2 24.0 mmol/ LBUN 24.0 mg/dLCREATININE 1.0 mg/dLSGOT/AST 16.0 IU/LSGPT/ALT 10.0 IU/LALK PHOS 75.0 IU/LTOTAL PROTEIN 7.70 g/dLALBUMIN 4.30 g/dLTOTAL BILI 0.80 mg/dLCALCIUM 10.60 mg/dLAGE 67 GFR NonAA 56 GFR AA 68 eGFR 56 eGFR AA* 60 TRIGLYCERIDES 135.0 mg/dLCHOLESTEROL 218.0 mg/dLHDL 42.0 mg/dLTOT CHOL/HDL 5.2 LDL (CALC) 149.0 mg/dLHGB A1C 6.80 %Est Avg Glucose 148.5 mg/dL 06/12/2014 8:27 AM HGB A1C 8.60 %Est Avg Glucose 200.1 mg/dL 07/08/2014 11:22 AM WBC 9.0 RBC 3.96 HGB 12.50 g/dLHCT 37.70 %MCV 95.0 fLMCH 31.60 pgMCHC 33.20 g/dLRDW SD 47 RDW CV 13.40 %MPV 10.10 fLPLT 445 NRBC# 0.00 NRBC% 0.0 %NEUT 70.20 %%LYMP 23.50 %%MONO 5.10 %%EOS 1.0 %%BASO 0.20 %#NEUT 6.28 #LYMP 2.10 #MONO 0.46 #EOS 0.09 #BASO 0.02 MANUAL DIFF NOT IND GLUCOSE 260.0 mg/dLSODIUM 138.0 mmol/LPOTASSIUM 4.40 mmol/LCHLORIDE 104.0 mmol/LCO2 22.0 mmol/LBUN 24.0 mg/dLCREATININE 1.0 mg/dLSGOT/AST 13.0 IU/LSGPT/ALT 13.0 IU/ LALK PHOS 71.0 IU/LTOTAL PROTEIN 7.50 g/dLALBUMIN 4.20 g/dLTOTAL BILI 0.40 mg/ dLCALCIUM 10.10 mg/dLAGE 68 GFR NonAA 55 GFR AA 67 eGFR 55 eGFR AA* 60 TSH 2.320 uIU/mLPTH, Intact 26 01/21/2015 8:26 AM TRIGLYCERIDES 140.0 mg/dLCHOLESTEROL 183.0 mg/dLHDL 33.0 mg/ dLTOT CHOL/HDL 5.5 LDL (CALC) 122.0 mg/dLGLUCOSE 154.0 mg/dLSODIUM 141.0 mmol/ LPOTASSIUM 4.50 mmol/LCHLORIDE 106.0 mmol/LCO2 24.0 mmol/LBUN 33.0 mg/ dLCREATININE 1.0 mg/dLSGOT/AST 14.0 IU/LSGPT/ALT 7.0 IU/LALK PHOS 67.0 IU/ LTOTAL PROTEIN 6.90 g/dLALBUMIN 4.0 g/dLTOTAL BILI 0.60 mg/dLCALCIUM 9.80 mg/ dLAGE 69 GFR NonAA 55 GFR AA 67 eGFR 55 eGFR AA* >60 WBC 6.9 RBC 3.80 HGB 11.90 g/dLHCT 36.10 %MCV 95.0 fLMCH 31.30 pgMCHC 33.0 g/dLRDW SD 48 RDW CV 13.90 %MPV 9.80 fLPLT 376 NRBC# 0.00 NRBC% 0.0 %NEUT 61.10 %%LYMP 27.90 %%MONO 7.70 %%EOS 2.90 %%BASO 0.40 %#NEUT 4.19 #LYMP 1.92 #MONO 0.53 #EOS 0.20 #BASO 0.03 MANUAL DIFF NOT IND Hemoglobin A1c 8.0 %Estim. Avg Glu (eAG) 183 mg/dL 01/14/2016 8:55 AM GLUCOSE 217.0 mg/dLSODIUM 138.0 mmol/LPOTASSIUM 4.50 mmol/ LCHLORIDE 102.0 mmol/LCO2 24.0 mmol/LBUN 28.0 mg/dLCREATININE 1.0 mg/dLSGOT/AST 13.0 IU/LSGPT/ALT 12.0 IU/LALK PHOS 80.0 IU/LTOTAL PROTEIN 7.60 g/dLALBUMIN 4.60 g/dLTOTAL BILI 0.80 mg/dLCALCIUM 10.30 mg/dLAGE 70 GFR NonAA 55 GFR AA 67 eGFR 55 eGFR AA* >60 WBC 8.4 RBC 4.15 HGB 13.0 g/dLHCT 39.0 %MCV 94.0 fLMCH 31.30 pgMCHC 33.30 g/dLRDW SD 44 RDW CV 13.0 %MPV 10.40 fLPLT 395 NRBC# 0.00 NRBC% 0.0 %NEUT 59.0 %%LYMP 31.20 %%MONO 7.90 %%EOS 1.20 %%BASO 0.50 %#NEUT 4.94 #LYMP 2.61 #MONO 0.66 #EOS 0.10 #BASO 0.04 MANUAL DIFF NOT IND HGB A1C 10.10 %Est Avg Glucose 243.2 mg/dLTRIGLYCERIDES 150.0 mg/dLCHOLESTEROL 229.0 mg/ dLHDL 36.0 mg/dLTOT CHOL/HDL 6.4 LDL (CALC) 163.0 mg/dL History Of Immunizations Name Date Admin Mfg Name Mfg Code Trade Name Lot# Route Inj Vis Given Vis Pub CVX Influenza 05/19/2011 sanofi pasteur PMC FLUZONE [id number] Intramuscular Left Deltoid 05/19/2011 02/10/2011 141 Tdap 02/25/2012 sanofi pasteur PMC ADACEL [id number] Intramuscular Left Deltoid 02/25/2012 12/01/2006 999 Pneumococcal 05/16/[id number] Intramuscular Left Deltoid 05/16/2013 02/09/2013 133 History of Past Illness Name Date of Onset Comments Scoliosis, Idiopathic Jun 18 2009 4:12PM Cervical spondylosis without myelopathy Jun 18 2009 4:12PM SI joint pain Jun 18 2009 4:12PM Diabetes Mellitus, Type II Jul 02 2009 11:38AM acid reflux Diabetes mellitus, type II Hypertension Hypercholesterolemia Scoliosis cervical & thoracic Lumbar spondylosis SI joint pain bilateral SI joint pain & dysfunction Joint Pain Aug 05 2009 9:32AM Humerus Fracture, Closed Aug 05 2009 9:32AM Sinusitis, Acute Aug 11 2009 3:50PM Scoliosis, Idiopathic Aug 27 2009 4:14PM Cervical spondylosis without myelopathy Aug 27 2009 4:14PM SI joint pain Aug 27 2009 4:14PM Hypertension Sep 18 2009 8:38AM Diabetes Mellitus, Type II Sep 18 2009 8:38AM Scoliosis, Idiopathic Sep 24 2009 4:31PM Cervical spondylosis without myelopathy Sep 24 2009 4:31PM SI joint pain Sep 24 2009 4:31PM Muscle Spasm Sep 24 2009 4:31PM Sinusitis, Acute Oct 23 2009 2:23PM Scoliosis, Idiopathic Jan 13 2010 10:45AM Cervical spondylosis without myelopathy Jan 13 2010 10:45AM SI joint pain Jan 13 2010 10:45AM Muscle Spasm Jan 13 2010 10:45AM Pain in joint; hand Jan 13 2010 10:45AM Trigger finger (acquired) Jan 13 2010 11:31AM Scoliosis, Idiopathic Feb 12 2010 1:40PM Cervical spondylosis without myelopathy Feb 12 2010 1:40PM SI joint pain Feb 12 2010 1:40PM Muscle Spasm Feb 12 2010 1:40PM Pain in joint; hand Feb 12 2010 1:40PM Hypertension Apr 07 2010 8:51AM Diabetes Mellitus, Type II Apr 07 2010 8:51AM Hyperlipidemia Apr 07 2010 8:51AM Upper Respiratory Infection May 08 2010 11:01AM Sinusitis, Acute May 04 2010 4:18PM Pain in joint; lower leg/knee May 21 2010 8:07AM Trigger finger (acquired) May 21 2010 8:07AM Trigger finger (acquired) May 21 2010 8:38AM Pain in joint; lower leg/knee Jul 06 2010 8:13AM Trigger finger (acquired) Jul 06 2010 8:13AM Sinusitis, Acute Aug 20 2010 10:11AM Diabetes Mellitus, Type II Sep 23 2010 10:41AM Sinusitis Sep 23 2010 10:41AM Trigger finger (acquired) Apr 09 2011 10:47AM Pain in joint; lower leg/knee Apr 09 2011 10:44AM Trigger finger (acquired) Apr 09 2011 10:44AM Pain in joint; lower leg/knee Apr 28 2011 8:52AM Trigger finger (acquired) Apr 28 2011 8:52AM Osteoarthritis, knee May 06 2011 9:46AM Pain, knee May 06 2011 9:46AM Osteoarthritis, knee May 13 2011 10:16AM Pain, knee May 13 2011 10:16AM Sinusitis May 19 2011 9:06AM Osteoarthritis, knee May 20 2011 8:43AM Pain, knee May 20 2011 8:43AM Upper Respiratory Infection Jun 14 2011 10:53AM Pain in joint; lower leg/knee Aug 05 2011 8:38AM Osteoarthrosis, lower leg Aug 05 2011 9:13AM Pain in joint; lower leg/knee Nov 04 2011 9:00AM Osteoarthrosis, lower leg Nov 04 2011 9:52AM Pain in joint; lower leg/knee Dec 20 2011 8:53AM Adacel Mar 01 2012 12:38PM Screening Mammogram Mar 23 2012 1:41PM Pain in joint; lower leg/knee Mar 29 2012 9:57AM Trigger finger (acquired) Mar 29 2012 10:40AM Breast Mass Apr 18 2012 2:38PM Diabetes Mellitus, Type II Apr 18 2012 2:38PM Pain in joint; lower leg/knee Apr 28 2012 9:01AM Sinusitis, Acute May 09 2012 10:37AM Upper Respiratory Infection Jun 28 2012 9:12AM Diabetes Mellitus, Type II Sep 25 2012 7:50AM Diarrhea Sep 25 2012 7:50AM Fecal impaction Oct 04 2012 2:20PM Diarrhea Oct 02 2012 3:20PM Diabetes Mellitus, Type II Oct 09 2012 9:15AM Hypertension Oct 09 2012 9:15AM Diabetes Mellitus, Type II Nov 14 2012 3:53PM Pain in joint; lower leg/knee Jan 16 2013 10:43AM Hypertension Feb 08 2013 3:30PM Diabetes Mellitus, Type II Feb 08 2013 3:30PM Hypercholesterolemia Feb 08 2013 3:30PM Upper Respiratory Infection May 16 2013 8:55AM Bronchitis, Acute Aug 13 2013 9:25AM Sinusitis Oct 01 2013 3:40PM Sinusitis Oct 26 2013 9:09AM Hypertension Mar 26 2014 3:08PM Diabetes Mellitus, Type II Mar 26 2014 3:08PM Sinusitis Mar 26 2014 3:08PM Diabetes Mellitus, Type II, Uncontrolled Jun 17 2014 2:10PM Sinusitis Jun 17 2014 2:10PM Hypercalcemia Jun 17 2014 2:10PM Osteoarthritis knee Dec 13 2014 8:41AM Pes anserine bursitis Dec 13 2014 8:41AM Hypertension Jan 07 2015 5:33PM Diabetes Mellitus, Type II Jan 07 2015 5:33PM Hyperlipidemia Jan 07 2015 5:33PM Screening Mammogram Jan 07 2015 5:36PM Osteoarthritis knee Jan 13 2015 8:36AM Pes anserine bursitis Jan 13 2015 8:36AM Diabetes Mellitus, Type II Apr 02 2015 9:18AM Otitis Media, Acute Apr 02 2015 9:18AM Encounter for screening mammogram for breast cancer Jan 08 2016 2:34PM Hypertension Jan 08 2016 2:38PM Diabetes Mellitus, Type II Jan 08 2016 2:38PM Hyperlipidemia Jan 08 2016 2:38PM Diabetes Mellitus, Type II, Uncontrolled Jan 16 2016 9:34AM Sinusitis Jul 28 2016 11:18AM Sinusitis Sep 08 2016 11:19AM Diabetes Mellitus, Type II Jan 31 2017 3:04PM Fatigue Jan 31 2017 3:04PM Constipation Jan 31 2017 3:04PM Hyponatremia Feb 07 2017 1:56PM Diabetes Mellitus, Type II Feb 08 2017 3:12PM Hyponatremia Feb 08 2017 3:12PM Hyponatremia Feb 09 2017 8:03AM Hyponatremia Feb 09 2017 8:35AM Hypokalemia Feb 14 2017 5:11PM Hyponatremia Feb 16 2017 9:11AM Encounter for screening mammogram for breast cancer Apr 05 2017 11:00AM Otitis externa Apr 15 2017 10:21AM Hypertension Jul 26 2017 1:42PM Diabetes Mellitus, Type II Jul 26 2017 1:42PM Hyperlipidemia Jul 26 2017 1:42PM Hypertension Mar 02 2018 1:44PM Diabetes Mellitus, Type II Mar 02 2018 1:44PM Payers Insurance Name Company Name Plan Name Plan Number Policy Number Policy Group Number Start Date BCBS Bcbs [facility] [id number] Wednesday, 2004 Usd 503 Usd 503 [id number] Wednesday, 2009 Medicare Part A zMedicare A Secondary DOES NOT HAVE MEDICARE Wednesday, 2012 History of Encounters Visit Date Visit Type Provider 03/02/2018 Office visit Hung Jaramillo MD 04/15/2017 Office visit Hung Jaramillo MD 02/09/2017 Office visit Hung Jaramillo MD 02/08/2017 Office visit Hung Jaramillo MD 01/31/2017 Office visit Hung Jaramillo MD 09/08/2016 Office visit Hung Jaramillo MD 07/28/2016 Office visit Hung Jaramillo MD 01/16/2016 Office visit Hung Jaramillo MD 04/02/2015 Office visit Hung Jaramillo MD 01/13/2015 Office visit Sunny Lebron MD 12/13/2014 Office visit Sunny Lebron MD 06/17/2014 Office visit 06/17/2014 Office visit Hung Jaramillo MD 03/26/2014 Office visit Hung Jaramillo MD 10/26/2013 Office visit Hung Jaramillo MD 10/01/2013 Office visit Hung Jaramillo MD 08/13/2013 Office visit Hung Jaramillo MD 05/16/2013 Office visit Hung Jaramillo MD 01/16/2013 Office visit Anil Argueta MD 11/14/2012 Office visit Hung Jaramillo MD 10/09/2012 Office visit Hung Jaramillo MD 10/04/2012 Office visit Shiva Haywood MD 10/04/2012 Hospital Shiva Haywood MD 10/02/2012 Office visit Shiva Haywood MD 09/13/2012 Hospital Candida Stuart MD 06/28/2012 Office visit Hung Jaramillo MD 05/09/2012 Office visit Hung Jaramillo MD 04/28/2012 Office visit Anil Argueta MD 04/18/2012 Office visit Hung Jaramillo MD 03/29/2012 Office visit Anil Argueta MD 02/25/2012 Nurse visit Jeannette Mcgrath RN 01/03/2012 Hospital Albaro Pina MD 12/20/2011 Office visit Anil Argueta MD 11/04/2011 Office visit Anil Argueta MD 08/05/2011 Office visit Anil Argueta MD 06/14/2011 Office visit Hung Jaramillo MD 05/20/2011 Office visit Anil Argueta MD 05/19/2011 Office visit Hung Jaramillo MD 05/13/2011 Office visit Anil Argueta MD 05/06/2011 Office visit Anil Argueta MD 04/28/2011 Office visit Anil Argueta MD 04/09/2011 Office visit Anil Argueta MD 09/23/2010 Office visit Hung Jaramillo MD 08/20/2010 Office visit Hung Jaramillo MD 07/06/2010 Office visit Anil Argueta MD 05/21/2010 Office visit Anil Argueta MD 05/08/2010 Office visit Hung Jaramillo MD 05/04/2010 Office visit Matthew Rodarte MD 02/12/2010 Office visit Anil Argueta MD 01/13/2010 Office visit Anil Argueta MD 10/23/2009 Office visit Hung Jaramillo MD 09/24/2009 Office visit Anil Argueta MD 09/18/2009 Office visit Hung Jaramillo MD 08/27/2009 Office visit Anil Argueta MD 08/11/2009 Office visit Hung Jaramillo MD 08/05/2009 Office visit Noé Reddy DO 07/02/2009 Office visit Hung Jaramillo MD 06/18/2009 Office visit Anil Argueta MD 06/18/2009 Laboratory Hung Jaramillo MD 04/21/2009 Office visit Anil Argueta MD 03/21/2009 Office visit Anil Argueta MD
[2018-05-26] MEDS ORDERED: TIMOLOL MALEATE 0.5% 5 ML (TIMOPTIC) BTL OU PRN (09:00)
[2018-05-26] MEDS ORDERED: POVIDONE (BETADINE) OPHTH SOLN 5% 30 ML OP ONE (09:00)
[2018-05-26] MEDS ORDERED: LIDOCAINE PF 1% 2 ML AMP IR PRN (09:00)
[2018-05-26] MEDS ORDERED: MOXIFLOXACIN OPHTH SOLN 5 MG/ML 0.3 ML SYRINGE OP ONE (09:00)
--- OUTSIDE RECORDS SUMMARY | 2018-05-26 09:00 | XMS REPORT ---
Author Author Hung Jaramillo [facility] Address [address] [place], [place] [id number] Care Team Providers Care Insurance Advisor Name Role Phone Hung Jaramillo PCP Unavailable Hung Jaramillo PreferredProvider Unavailable Allergies and Adverse Reactions Name Reaction Notes seasonal allergies Demerol SULFA (SULFONAMIDES) Plan of Treatment Planned Activity Comments Planned Date Planned Time Plan/Goal BMP 02/07/2017 12:00 AM CBC with Auto 02/09/2017 12:00 AM CMP (comprehensive metabolic panel) 02/09/2017 12:00 AM Hemoglobin A1c 02/08/2013 12:00 AM [...] EACH MORNING AND 1 TABLET EACH EVENING promethazine-codeine 6.25-10 mg/5 mL oral syrup 08/13/2013 take 5 milliliters by oral route every 6 hours as needed, not to exceed 30 mL in 24 hours alendronate 70 mg oral tablet 09/18/2013 TAKE [...] 1ST FOOD/BEVERAGE OR MEDICATION OF THE DAY amlodipine 5 mg oral tablet 02/24/2016 TAKE 1 TABLET BY MOUTH EVERY DAY alendronate 70 mg oral tablet 06/25/2016 TAKE 1 TABLET BY MOUTH ONCE WEEKLY IN THE MORNING AT LEAST 30 MINUTES BEFORE 1ST FOOD/BEVERAGE OR MEDICATION OF THE DAY alendronate 70 mg oral tablet 06/25/2016 TAKE 1 TABLET BY MOUTH ONCE WEEKLY IN THE MORNING AT LEAST 30 MINUTES BEFORE 1ST FOOD/BEVERAGE OR MEDICATION OF THE DAY Jentadueto 2.5-1,000 mg oral tablet 07/07/2016 TAKE 1 TABLET BY MOUTH TWICE DAILY WITH MEALS montelukast 10 mg oral tablet 07/07/2016 TAKE 1 TABLET BY MOUTH EVERY DAY alendronate 70 mg oral tablet 08/19/2016 TAKE 1 TABLET BY MOUTH ONCE WEEKLY IN THE MORNING AT LEAST 30 MINUTES BEFORE 1ST FOOD/BEVERAGE OR MEDICATION OF THE DAY glyburide micronized 6 mg oral tablet 09/14/2016 TAKE 1/2 TABLET BY MOUTH EACH MORNING AND 1 TABLET BY MOUTH EACH EVENING glyburide micronized 6 mg oral tablet 09/14/2016 TAKE 1/2 TABLET BY MOUTH EACH MORNING AND 1 TABLET BY MOUTH EACH EVENING Benicar HCT 40-25 mg oral tablet 01/17/2017 TAKE 1 TABLET BY MOUTH EVERY DAY Nexium 40 mg oral capsule,delayed release(DR/EC) 02/08/2017 03/10/2017 take 1 capsule (40 mg) by oral route once daily for 30 days Trulicity 0.75 mg/0.5 mL subcutaneous pen injector 02/08/2017 inject 0.5 milliliter (0.75 mg) by subcutaneous route every 7 days in the abdomen, thigh, or upper arm rotating injection sites Name Start Date Expiration Date SIG Comments [...] diclofenac sodium 50 mg oral tablet,delayed release (DR/EC) 12/29/20112011 TAKE 1 TABLET BY MOUTH TWICE [...] per day with meals for 30 days IXcellerate2 miscellaneous kit 11/08/2012 11/08/2012 test BS dailyICD-9 [...] by topical route 4 times per day Augmentin 875-125 mg oral tablet 10/01/2013 10/08/2013 [...] route every 12 hours for 14 days Discontinued Name Start Date Discontinued Date SIG [...] route every 12 hours for 14 days Amitiza 8 mcg oral capsule 01/31/2017 02/02/2017 take 1 capsule (8 mcg) by oral route 2 times per day with food and water for 10 days Problem List Description Status Onset acid reflux Active Diabetes Mellitus, Type II Active Hypercholesterolemia Active Hypertension Active Lumbar spondylosis Active Scoliosis Active SI joint pain Active Vital Signs Date Time BP-Sys(mm[Hg] BP-Park(mm[Hg]) HR(bpm) RR(rpm) Temp WT HT HC BMI BSA BMI Percentile O2 Sat(%) 02/09/2017 8:31:00 AM 132 mmHg 64 mmHg 84 bpm 16 rpm 97.2 F 144 lbs 62 in 26.34 kg/m2 1.69 m2 98 % 02/08/2017 3:10:00 PM 130 mmHg 63 mmHg 86 bpm 18 rpm 98.2 F 147 lbs 61 in 27.7751 kg/m 1.694 m 98 % 01/31/2017 2:57:00 PM 136 mmHg 74 mmHg 88 bpm 16 rpm 98 F 150 lbs 61 in 28.34 kg/m2 1.71 m2 97 % 09/08/2016 11:14:00 AM 130 mmHg 82 mmHg 86 bpm 16 rpm 98.4 F 147 lbs 61 in 27.7751 kg/m 1.694 m 98 % 07/28/2016 11:10:00 AM 128 mmHg 74 mmHg 103 bpm 18 rpm 99.6 F 149 lbs 61 in 28.15 kg/m2 1.71 m2 98 % 01/16/2016 9:31:00 AM 136 mmHg 68 mmHg 102 bpm 16 rpm 98.8 F 150 lbs 61 in 28.342 kg/m 1.7112 m 97 % 04/02/2015 9:07:00 AM 148 mmHg 80 mmHg 94 bpm 18 rpm 98.9 F 155 lbs 61 in 29.29 kg/m2 1.74 m2 01/13/2015 8:33:00 AM 126 mmHg 64 mmHg 71 bpm 18 rpm 98.2 F 156 lbs 61 in 29.4756 kg/m 1.7451 m 12/13/2014 8:33:00 AM 126 mmHg 76 mmHg [...] rpm 97.9 F 147.25 lbs 63 in 26.08 kg/m2 1.72 m2 08/05/2009 9:32:00 AM 154 mmHg 80 mmHg [...] alcohol Denies illicit substance abuse 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 per 1mg-[facility] [id number] Reviewed 06/14/2011 12:00 AM Depo-Medrol 80 Mg [facility] [id number] Reviewed 01/08/2016 12:00 AM MAMMOGRAM BOTH BREASTS Reviewed 01/08/2016 12:00 AM COMPLETE CBC W/AUTO DIFF WBC Reviewed 01/08/2016 12:00 AM COMPREHEN METABOLIC PANEL Reviewed 01/08/2016 12:00 AM LIPID PANEL Reviewed 01/08/2016 12:00 AM GLYCOSYLATED HEMOGLOBIN TEST Reviewed 08/05/2011 12:00 AM DRAIN/INJ JOINT/BURSA W/O US Reviewed 08/05/2011 12:00 AM Kenalog 40 Mg Im-[facility]#[id number] Reviewed 11/04/2011 12:00 AM DRAIN/INJ JOINT/BURSA W/O US Reviewed 11/04/2011 12:00 AM Kenalog 40 Mg Im-[facility]#[id number] Reviewed 09/18/2009 12:00 AM COMPLETE CBC W/AUTO [...] Returned 01/31/2017 12:00 AM VITAMIN B-12 Returned 02/08/2017 12:00 AM METABOLIC PANEL TOTAL CA Returned 02/08/2017 12:00 AM COMPLETE CBC W/AUTO DIFF WBC Returned 03/23/2012 12:00 AM MAMMOGRAM SCREENING Reviewed 03/29/2012 12:00 AM Misbah [id number] ONEYDA Reviewed 03/29/2012 12:00 AM INJ TENDON SHEATH/LIGAMENT Reviewed 04/18/2012 12:00 AM METABOLIC PANEL TOTAL CA Reviewed 04/18/2012 12:00 AM COMPLETE CBC W/AUTO DIFF WBC Reviewed 04/18/2012 12:00 AM GLYCOSYLATED HEMOGLOBIN TEST Reviewed 09/25/2012 12:00 AM COMPLETE CBC W/AUTO DIFF [...] FIDE IM Reviewed 01/13/2010 12:00 AM Misbah [id number] ONEYDA Reviewed 01/13/2010 12:00 AM INJ TENDON SHEATH/LIGAMENT Reviewed 04/07/2010 12:00 AM COMPLETE CBC W/AUTO DIFF WBC Reviewed 04/07/2010 12:00 AM COMPREHEN METABOLIC PANEL Reviewed 04/07/2010 12:00 AM LIPID PANEL Reviewed 04/07/2010 12:00 AM GLYCOSYLATED HEMOGLOBIN TEST Reviewed 05/21/2010 12:00 AM Misbah [id number] ONEYDA Reviewed 05/21/2010 12:00 AM INJ TENDON [...] Avg Glucose 148.5 mg/dL 06/12/2014 8:27 AM GLUCOSE 138.0 mg/dLSODIUM 139.0 mmol/LPOTASSIUM 4.40 mmol/ LCHLORIDE 101.0 mmol/LCO2 23.0 mmol/LBUN 29.0 mg/dLCREATININE 1.0 mg/dLSGOT/AST 14.0 IU/LSGPT/ALT 12.0 IU/LALK PHOS 74.0 IU/LTOTAL PROTEIN 8.0 g/dLALBUMIN 4.50 g/dLTOTAL BILI 0.60 mg/dLCALCIUM 11.30 mg/dLAGE 68 GFR NonAA 55 GFR AA 67 eGFR 55 eGFR AA* 60 TRIGLYCERIDES 112.0 mg/dLCHOLESTEROL 202.0 mg/dLHDL 39.0 mg/ dLTOT CHOL/HDL 5.2 LDL (CALC) 141.0 mg/dLWBC 8.4 RBC 4.18 HGB 13.0 g/dLHCT 38.90 %MCV 93.0 fLMCH 31.10 pgMCHC 33.40 g/dLRDW SD 46 RDW CV 13.50 %MPV 10.30 fLPLT 462 NRBC# 0.00 NRBC% 0.0 %NEUT 63.50 %%LYMP 27.80 %%MONO 6.50 %%EOS 1.80 % %BASO 0.40 %#NEUT 5.36 #LYMP 2.35 #MONO 0.55 #EOS 0.15 #BASO 0.03 MANUAL DIFF NOT IND HGB A1C 8.60 %Est Avg Glucose 200.1 [...] mg/dLTOT CHOL/HDL 6.4 LDL (CALC) 163.0 mg/dL 02/07/2017 11:05 AM TSH 1.410 uIU/mLGLUCOSE 179.0 mg/dLSODIUM 124.0 mmol/ LPOTASSIUM 4.40 mmol/LCHLORIDE 88.0 mmol/LCO2 23.0 mmol/LBUN 18.0 mg/ dLCREATININE 1.10 mg/dLSGOT/AST 20.0 IU/LSGPT/ALT 19.0 IU/LALK PHOS 81.0 IU/ LTOTAL PROTEIN 8.40 g/dLALBUMIN 4.60 g/dLTOTAL BILI 0.50 mg/dLCALCIUM 9.80 mg/ dLAGE 71 GFR NonAA 49 GFR AA 59 eGFR 49 eGFR AA* 59 WBC 9.2 RBC 4.03 HGB 12.60 g /dLHCT 36.70 %MCV 91.0 fLMCH 31.30 pgMCHC 34.30 g/dLRDW SD 41 RDW CV 12.50 %MPV 9.30 fLPLT 510 NRBC# 0.00 NRBC% 0.0 %NEUT 73.20 %%LYMP 18.70 %%MONO 7.20 %%EOS 0.40 %%BASO 0.20 %#NEUT 6.72 #LYMP 1.72 #MONO 0.66 #EOS 0.04 #BASO 0.02 MANUAL DIFF NOT IND VITAMIN B12 306.0 pg/mLHGB A1C 9.0 %Est Avg Glucose 211.6 mg/dL 02/08/2017 4:05 PM WBC 10.7 RBC 3.51 HGB 11.30 g/dLHCT 32.0 %MCV 91.0 fLMCH 32.20 pgMCHC 35.30 g/dLRDW SD 41 RDW CV 12.50 %MPV 8.70 fLPLT 434 NRBC# 0.00 NRBC% 0.0 %NEUT 66.10 %%LYMP 24.20 %%MONO 8.10 %%EOS 0.90 %%BASO 0.40 %#NEUT 7.06 #LYMP 2.58 #MONO 0.87 #EOS 0.10 #BASO 0.04 MANUAL DIFF NOT IND GLUCOSE 159.0 mg/dLSODIUM 119.0 mmol/LPOTASSIUM 4.80 mmol/LCHLORIDE 86.0 mmol/LCO2 21.0 mmol/LBUN 24.0 mg/dLCREATININE 1.10 mg/dLCALCIUM 9.40 mg/dLAGE 71 GFR NonAA 49 GFR AA 59 eGFR 49 eGFR AA* 59 History Of Immunizations Name Date Admin Mfg Name Mfg Code Trade Name Lot# Route Inj Vis Given Vis Pub CVX Influenza 05/19/2011 sanofi pasteur PMC Fluzone [id number] Intramuscular Left Deltoid 05/19/2011 02/10/2011 141 Tdap 02/25/2012 sanofi pasteur PMC ADACEL [id number] Intramuscular Left Deltoid 02/25/2012 12/01/2006 999 Pneumococcal 05/16/2013 Alycia WAL Prevnar [id number] Intramuscular Left Deltoid 05/16/2013 02/09/2013 133 History of Past Illness Name Date of Onset Comments Scoliosis, Idiopathic Jun 18 2009 4:12PM Cervical spondylosis without myelopathy Jun 18 2009 4:12PM SI joint pain Jun 18 2009 4:12PM Diabetes Mellitus, Type II Jul 02 2009 11:38AM acid reflux Diabetes Mellitus, Type II Hypertension Hypercholesterolemia Scoliosis cervical & thoracic [...] 2017 8:03AM Hyponatremia Feb 09 2017 8:35AM Payers Insurance Name Company Name Plan Name Plan Number Policy Number Policy Group Number Start Date BCBS [employer] [place] [id number] Wednesday, 2004 Usd 503 Usd 503 [id number] Wednesday, 2009 Medicare Part A zzzMedicare A Secondary DOES NOT HAVE MEDICARE Wednesday, 2012 History of Encounters Visit Date Visit Type Provider 02/09/2017 Office visit Hung Jaramillo MD 02/08/2017 [...] 10/04/2012 Office visit Shiva Haywood MD 10/04/2012 [facility] Shiva Haywood MD 10/02/2012 Office visit Shiva Haywood MD 09/13/2012 [facility] Candida Stuart MD 06/28/2012 Office visit Hung Jaramillo MD 05/09/2012 Office visit Hung Jaramillo MD 04/28/2012 Office visit Anil Argueta MD 04/18/2012 Office visit Hung Jaramillo MD 03/29/2012 Office visit Anil Argueta MD 02/25/2012 Nurse visit Jeannette Mcgrath RN 01/03/2012 [facility] Albaro Pina MD 12/20/2011 Office visit [...]
--- OUTSIDE RECORDS SUMMARY | 2018-05-26 09:02 | XMS REPORT ---
Author Author Hung Jaramillo [facility] Address [address] [place], [place] [id number] Care Team Providers Care Bunk Assembler Name Role Phone Hung Jaramillo PCP Unavailable Hung Jaramillo PreferredProvider Unavailable Allergies and Adverse Reactions Name Reaction Notes seasonal allergies Demerol SULFA (SULFONAMIDES) Plan of Treatment Planned Activity Comments Planned Date Planned Time Plan/Goal Mammography; bilateral 04/05/2017 12:00 AM Hemoglobin A1c 02/08/2013 12:00 AM [...] 1 TABLET BY MOUTH EACH EVENING Benicar 40 mg oral tablet 02/14/2017 take 1 tablet (40 mg) by oral route once daily Linzess 145 mcg oral capsule 02/17/2017 take 1 capsule (145 mcg) by oral route once daily on an empty stomach at least 30 minutes before 1st meal of the day Trulicity 0.75 mg/0.5 mL subcutaneous pen injector 02/22/2017 inject 0.5 milliliter (0.75 mg) by subcutaneous route every 7 days in the abdomen, thigh, or upper arm rotating injection sites *ASCENSIA CONTOUR TEST STRIPS 03/03/2017 TEST BLOOD SUGAR EVERY DAY amlodipine 5 mg oral tablet 03/31/2017 05/05/2018 TAKE 1 TABLET BY MOUTH ONCE EVERY DAY OneTouch UltraSoft Lancets miscellaneous [facility] 04/05/2017 test blood sugars daily ICD-10 E11.9 ciprofloxacin HCl 0.2 % otic (ear) dropperette 04/15/2017 instill 0.25 milliliter (0.5 mg) into left ear by otic route every 12 hours for 7 days Name Start Date Expiration Date SIG Comments [...] per day with meals for 30 days HomeJabTouch Ultra2 miscellaneous kit 11/08/2012 11/08/2012 test BS dailyICD-9 [...] route every 12 hours for 7 days Discontinued Name Start Date Discontinued Date [...] HC BMI BSA BMI Percentile O2 Sat(%) 04/15/2017 10:19:00 AM 134 mmHg 76 mmHg 82 bpm 18 rpm 97.4 F 144 lbs 62 in 26.34 kg/m2 1.69 m2 99 % 02/09/2017 8:31:00 AM 132 mmHg 64 mmHg 84 bpm 16 rpm 97.2 F 144 lbs 62 in 26.3377 kg/m 1.6904 m 98 % 02/08/2017 3:10:00 PM 130 mmHg 63 mmHg 86 bpm 18 rpm 98.2 F 147 lbs 61 in 27.78 kg/m2 1.69 m2 98 % 01/31/2017 2:57:00 PM 136 mmHg 74 mmHg 88 bpm 16 rpm 98 F 150 lbs 61 in 28.342 kg/m 1.7112 m 97 % 09/08/2016 11:14:00 AM 130 mmHg 82 mmHg 86 bpm 16 rpm 98.4 F 147 lbs 61 in 27.78 kg/m2 1.69 m2 98 % 07/28/2016 11:10:00 AM 128 mmHg 74 mmHg 103 bpm 18 rpm 99.6 F 149 lbs 61 in 28.153 kg/m 1.7055 m 98 % 01/16/2016 9:31:00 AM 136 mmHg 68 mmHg 102 bpm 16 rpm 98.8 F 150 lbs 61 in 28.34 kg/m2 1.71 m2 97 % 04/02/2015 9:07:00 AM 148 mmHg 80 mmHg 94 bpm 18 rpm 98.9 F 155 lbs 61 in 29.2867 kg/m 1.7395 m 01/13/2015 8:33:00 AM 126 mmHg 64 mmHg 71 bpm 18 rpm 98.2 F 156 lbs 61 in 29.48 kg/m2 1.75 m2 12/13/2014 8:33:00 AM 126 mmHg 76 mmHg 80 bpm 18 rpm 98 F 153 lbs 61 in 28.9088 kg/m 1.7283 m 06/17/2014 2:06:00 PM 124 mmHg 68 mmHg 96 bpm 20 rpm 97.3 F 153 lbs 61 in 28.91 kg/m2 1.73 m2 03/26/2014 3:03:00 PM 128 mmHg 64 mmHg 88 bpm 18 rpm 98.8 F 155 lbs 61 in 29.2867 kg/m 1.7395 m 10/26/2013 9:07:00 AM 136 mmHg 78 mmHg 96 bpm 18 rpm 97.6 F 150.375 lbs 61 in 28.41 kg/m2 1.71 m2 100 % 10/01/2013 3:36:00 PM 142 mmHg 66 mmHg 107 bpm 18 rpm 99.1 F 152.125 lbs 61 in 28.7435 kg/m 1.7233 m 98 % 08/13/2013 9:18:00 AM 136 mmHg 80 mmHg 88 bpm 18 rpm 98 F 149 lbs 63 in 26.39 kg/m2 1.73 m2 05/16/2013 8:50:00 AM 132 mmHg 74 mmHg 88 bpm 18 rpm 98.4 F 150 lbs 63 in 26.571 kg/m 1.7391 m 01/16/2013 10:33:00 AM 110 mmHg 62 mmHg 84 bpm 16 rpm 96.8 F 141 lbs 63 in 24.98 kg/m2 1.69 m2 11/14/2012 3:47:00 PM 120 mmHg 68 mmHg 84 bpm 20 rpm 98.6 F 141 lbs 63 in 24.9768 kg/m 1.6861 m 10/09/2012 9:12:00 AM 142 mmHg 74 mmHg 110 bpm 18 rpm 98.6 F 135 lbs 63 in 23.91 kg/m2 1.65 m2 10/04/2012 2:14:00 PM 140 mmHg 80 mmHg 124 bpm 18 rpm 98.3 F 146 lbs 63 in 25.8625 kg/m 1.7157 m 98 % 10/02/2012 3:10:00 PM 120 mmHg 70 mmHg 124 bpm 18 rpm 97.9 F 146.5 lbs 63 in 25.95 kg/m2 1.72 m2 96 % 06/28/2012 10:01:00 AM 134 mmHg 64 mmHg 88 bpm 18 rpm 97.2 F 152 lbs 64 in 26.0905 kg/m 1.7645 m 05/09/2012 10:35:00 AM 130 mmHg 64 mmHg 88 bpm 18 rpm 98 F 149 lbs 64 in 25.58 kg/m2 1.75 m2 04/28/2012 8:40:00 AM 108 mmHg 70 mmHg 66 bpm 16 rpm 98.2 F 150 lbs 64 in 25.7472 kg/m 1.7528 m 04/18/2012 2:36:00 PM 125 mmHg 75 mmHg 88 bpm 18 rpm 97.8 F 150 lbs 64 in 25.75 kg/m2 1.75 m2 98 % 03/29/2012 9:56:00 AM 132 mmHg 80 mmHg 74 bpm 16 rpm 96.8 F 152 lbs 64 in 26.0905 kg/m 1.7645 m 12/20/2011 8:41:00 AM 112 mmHg 70 mmHg 70 bpm 16 rpm 97.1 F 152 lbs 64 in 26.09 kg/m2 1.76 m2 11/04/2011 8:59:00 AM 110 mmHg 60 mmHg 72 bpm 16 rpm 97.5 F 152 lbs 64 in 26.0905 kg/m 1.7645 m 08/05/2011 8:37:00 AM 126 mmHg 64 mmHg 72 bpm 16 rpm 97.8 F 154 lbs 64 in 26.43 kg/m2 1.78 m2 06/14/2011 10:55:00 AM 148 mmHg 72 mmHg 84 bpm 20 rpm 98.3 F 151 lbs 63.5 in 26.3286 kg/m 1.7518 m 05/19/2011 9:08:00 AM 148 mmHg 82 mmHg 80 bpm 18 rpm 98.6 F 153 lbs 63.5 in 26.68 kg/m2 1.76 m2 04/28/2011 8:50:00 AM 110 mmHg 62 mmHg 80 bpm 16 rpm 97.8 F 04/09/2011 10:24:00 AM 124 mmHg 80 mmHg 76 bpm 16 rpm 97.9 F 152 lbs 63.5 in 26.50 kg/m2 1.76 m2 09/23/2010 10:38:00 AM 140 mmHg 80 mmHg [...] alcohol Denies illicit substance abuse 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 per 1mg-[facility] [id number] Reviewed 06/14/2011 12:00 AM Depo-Medrol 80 Mg [facility] [id number] Reviewed 01/08/2016 12:00 AM MAMMOGRAM BOTH BREASTS Reviewed 01/08/2016 12:00 AM COMPLETE CBC W/AUTO DIFF WBC Reviewed 01/08/2016 12:00 AM COMPREHEN METABOLIC PANEL Reviewed 01/08/2016 12:00 AM LIPID PANEL Reviewed 01/08/2016 12:00 AM GLYCOSYLATED HEMOGLOBIN TEST Reviewed 08/05/2011 12:00 AM DRAIN/INJ JOINT/BURSA W/O US Reviewed 08/05/2011 12:00 AM Kenalog 40 Mg Im-Ndc#6252-5042-60 Reviewed 11/04/2011 12:00 AM DRAIN/INJ JOINT/BURSA W/O US Reviewed 11/04/2011 12:00 AM Kenalog 40 Mg Im-Ndc#8154-4396-28 Reviewed 09/18/2009 12:00 AM COMPLETE CBC W/AUTO [...] AM MAMMOGRAM SCREENING Reviewed 03/29/2012 12:00 AM Kenalog Fm-[id number] ONEYDA Reviewed 03/29/2012 12:00 AM INJ TENDON [...] FIDE IM Reviewed 01/13/2010 12:00 AM Misbah Ui-[id number] ONEYDA Reviewed 01/13/2010 12:00 AM INJ TENDON SHEATH/LIGAMENT Reviewed 04/07/2010 12:00 AM COMPLETE CBC W/AUTO DIFF WBC Reviewed 04/07/2010 12:00 AM COMPREHEN METABOLIC PANEL Reviewed 04/07/2010 12:00 AM LIPID PANEL Reviewed 04/07/2010 12:00 AM GLYCOSYLATED HEMOGLOBIN TEST Reviewed 05/21/2010 12:00 AM Misbah Uf-[id number] ONEYDA Reviewed 05/21/2010 12:00 AM INJ TENDON [...] 3.80 HGB 11.90 g/dLHCT 36.10 %MCV 95.0 fLH 31.30 pgMCHC 33.0 g/dLRDW SD 48 RDW [...] 4.15 HGB 13.0 g/dLHCT 39.0 %MCV 94.0 fLH 31.30 pgMCHC 33.30 g/dLRDW SD 44 RDW [...] Vis Pub CVX Influenza 05/19/2011 sanofi pasteur [facility] Fluzone [id number] Intramuscular Left Deltoid 05/19/2011 02/10/2011 141 Tdap 02/25/2012 sanofi pasteur [facility] ADACEL [id number] Intramuscular Left Deltoid 02/25/2012 12/01/2006 999 Pneumococcal 05/16/2013 Alycia MICHAEL Kvng [id number] Intramuscular Left Deltoid 05/16/2013 02/09/2013 133 History [...] 11:00AM Otitis externa Apr 15 2017 10:21AM Payers Insurance Name Company Name Plan Name Plan Number Policy Number Policy Group Number Start Date BCBS [facility] [id number] Wednesday, 2004 Usd 503 Usd 503 [id number] Wednesday, 2009 Medicare Part A zzzMedicare A Secondary DOES NOT HAVE MEDICARE Wednesday, 2012 History of Encounters Visit Date Visit Type Provider 04/15/2017 Office visit Hung Jaramillo MD 02/09/2017 [...] 10/04/2012 Office visit Shiva Haywood MD 10/04/2012 [facility] Shiva Haywood MD 10/02/2012 Office visit Shiva Haywood MD 09/13/2012 [facility] Candida Stuart MD 06/28/2012 Office visit Hung Jaramillo MD 05/09/2012 Office visit Hung Jaramillo MD 04/28/2012 Office visit Anil Argueta MD 04/18/2012 Office visit Hung Jaramillo MD 03/29/2012 Office visit Anil Argueta MD 02/25/2012 Nurse visit Jeannette Mcgrath RN 01/03/2012 [facility] Albaro Pina MD 12/20/2011 Office visit Anil [...]
--- OUTSIDE RECORDS SUMMARY | 2018-05-26 09:04 | XMS REPORT ---
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 per 1mg-[facility] [id number] Reviewed 06/14/2011 12:00 AM Depo-Medrol 80 Mg [facility] [id number]-Nplvncvkz Reviewed 01/08/2016 12:00 AM MAMMOGRAM BOTH BREASTS Reviewed 01/08/2016 12:00 AM COMPLETE CBC W/AUTO DIFF WBC Reviewed 01/08/2016 12:00 AM COMPREHEN METABOLIC PANEL Reviewed 01/08/2016 12:00 AM LIPID PANEL Reviewed 01/08/2016 12:00 AM GLYCOSYLATED HEMOGLOBIN TEST Reviewed 08/05/2011 12:00 AM DRAIN/INJ JOINT/BURSA W/O US Reviewed 08/05/2011 12:00 AM Kenalog 40 Mg Im-Nd#2140-6271-25 Reviewed 11/04/2011 12:00 AM DRAIN/INJ JOINT/BURSA W/O US Reviewed 11/04/2011 12:00 AM Kenalog 40 Mg Im-Ndc#0597-6257-68 Reviewed 09/18/2009 12:00 AM COMPLETE CBC W/AUTO [...] MAMMOGRAM SCREENING Reviewed 03/29/2012 12:00 AM Kenalog [id number] ONEYDA Reviewed 03/29/2012 12:00 AM INJ TENDON [...] 7 FIDE IM Reviewed 01/13/2010 12:00 AM Kenalog Bv-[id number] ONEYDA Reviewed 01/13/2010 12:00 AM INJ TENDON SHEATH/LIGAMENT Reviewed 04/07/2010 12:00 AM COMPLETE CBC W/AUTO DIFF WBC Reviewed 04/07/2010 12:00 AM COMPREHEN METABOLIC PANEL Reviewed 04/07/2010 12:00 AM LIPID PANEL Reviewed 04/07/2010 12:00 AM GLYCOSYLATED HEMOGLOBIN TEST Reviewed 05/21/2010 12:00 AM Misbah Ze-[id number] ONEYDA Reviewed 05/21/2010 12:00 AM INJ TENDON [...] CVX Influenza 05/19/2011 sanofi pasteur [facility]C Fluzone [id number] Intramuscular Left Deltoid 05/19/2011 02/10/2011 141 Tdap 02/25/2012 [facility] ADACEL [id number] Intramuscular Left Deltoid 02/25/2012 12/01/2006 999 Pneumococcal 05/16/2013 Alycia FERNANDA Calderon [id number] Intramuscular Left Deltoid 05/16/2013 02/09/2013 133 History [...] for breast cancer Apr 05 2017 11:00AM Payers Insurance Name Company Name Plan Name Plan Number Policy Number Policy Group Number Start Date BCBS [facility] [id number] Wednesday, 2004 Usd 503 Usd 503 [id number] Wednesday, 2009 Medicare Part A zzzMedicare A [...]
--- OUTSIDE RECORDS SUMMARY | 2018-05-26 09:06 | XMS REPORT ---
Author Author Hung Jaramillo [facility] Address [address] [place], [place] [id number] Care Team Providers Care Dyehouse Worker Name Role Phone Hung Jaramillo PCP Unavailable Hung Jaramillo PreferredProvider Unavailable Allergies and Adverse Reactions Name Reaction Notes seasonal allergies Demerol SULFA (SULFONAMIDES) Plan of Treatment Planned Activity Comments Planned Date Planned Time Plan/Goal BMP 02/14/2017 12:00 AM Hemoglobin A1c 02/08/2013 12:00 AM [...] AND 1 TABLET BY MOUTH EACH EVENING Nexium 40 mg oral capsule,delayed release(DR/EC) 02/08/2017 03/10/2017 take 1 capsule (40 mg) by oral route once daily for 30 days Trulicity 0.75 mg/0.5 mL subcutaneous pen injector 02/08/2017 inject 0.5 milliliter (0.75 mg) by subcutaneous route every 7 days in the abdomen, thigh, or upper arm rotating injection sites Cipro 500 mg oral tablet 02/11/2017 02/18/2017 take 1 tablet (500 mg) by oral route every 12 hours for 7 days Benicar 40 mg oral tablet 02/14/2017 take 1 tablet (40 mg) by oral route once daily Name Start Date Expiration Date SIG Comments [...] per day with meals for 30 days [employer] Ultra2 miscellaneous kit 11/08/2012 11/08/2012 test BS [...] alcohol Denies illicit substance abuse 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 per 1mg-[facility] [id number] Reviewed 06/14/2011 12:00 AM Depo-Medrol 80 Mg [facility] [id number]-Ijhitzgxc Reviewed 01/08/2016 12:00 AM MAMMOGRAM BOTH BREASTS Reviewed 01/08/2016 12:00 AM COMPLETE CBC W/AUTO DIFF WBC Reviewed 01/08/2016 12:00 AM COMPREHEN METABOLIC PANEL Reviewed 01/08/2016 12:00 AM LIPID PANEL Reviewed 01/08/2016 12:00 AM GLYCOSYLATED HEMOGLOBIN TEST Reviewed 08/05/2011 12:00 AM DRAIN/INJ JOINT/BURSA W/O US Reviewed 08/05/2011 12:00 AM Kenalog 40 Mg Im-[facility]#4087-0827-84 Reviewed 11/04/2011 12:00 AM DRAIN/INJ JOINT/BURSA W/O US Reviewed 11/04/2011 12:00 AM Kenalog 40 Mg Im-[facility]#1068-6847-64 Reviewed 09/18/2009 12:00 AM COMPLETE CBC W/AUTO [...] 02/09/2017 12:00 AM COMPREHEN METABOLIC PANEL Returned 03/23/2012 12:00 AM MAMMOGRAM SCREENING Reviewed 03/29/2012 12:00 AM Kenalog [id number]-[id number] ONEYDA Reviewed 03/29/2012 12:00 AM INJ TENDON [...] FIDE IM Reviewed 01/13/2010 12:00 AM Kenalog Sv-[id number] ONEYDA Reviewed 01/13/2010 12:00 AM INJ TENDON SHEATH/LIGAMENT Reviewed 04/07/2010 12:00 AM COMPLETE CBC W/AUTO DIFF WBC Reviewed 04/07/2010 12:00 AM COMPREHEN METABOLIC PANEL Reviewed 04/07/2010 12:00 AM LIPID PANEL Reviewed 04/07/2010 12:00 AM GLYCOSYLATED HEMOGLOBIN TEST Reviewed 05/21/2010 12:00 AM Misbah MilesSw-[id number] ONEYDA Reviewed 05/21/2010 12:00 AM INJ TENDON [...] AA 59 eGFR 49 eGFR AA* 59 02/09/2017 8:25 AM WBC 8.8 RBC 3.69 HGB 11.60 g/dLHCT 33.80 %MCV 92.0 fLMCH 31.40 pgMCHC 34.30 g/dLRDW SD 41 RDW CV 12.40 %MPV 9.30 fLPLT 489 NRBC# 0.00 NRBC% 0.0 %NEUT 72.10 %%LYMP 18.40 %%MONO 8.0 %%EOS 0.70 %%BASO 0.50 %#NEUT 6.31 #LYMP 1.61 #MONO 0.70 #EOS 0.06 #BASO 0.04 MANUAL DIFF NOT IND GLUCOSE 259.0 mg/dLSODIUM 121.0 mmol/LPOTASSIUM 4.10 mmol/LCHLORIDE 87.0 mmol/LCO2 22.0 mmol/LBUN 19.0 mg/dLCREATININE 0.90 mg/dLSGOT/AST 19.0 IU/LSGPT/ALT 21.0 IU/ LALK PHOS 79.0 IU/LTOTAL PROTEIN 7.60 g/dLALBUMIN 4.30 g/dLTOTAL BILI 0.60 mg/ dLCALCIUM 9.50 mg/dLAGE 71 GFR NonAA 62 GFR AA 75 eGFR >60 mL/min/1.73meGFR AA * >60 02/10/2017 9:08 AM GLUCOSE 275.0 mg/dLSODIUM 122.0 mmol/LPOTASSIUM 4.80 mmol/ LCHLORIDE 88.0 mmol/LCO2 21.0 mmol/LBUN 21.0 mg/dLCREATININE 1.10 mg/dLCALCIUM 9.80 mg/dLAGE 71 GFR NonAA 49 GFR AA 59 eGFR 49 eGFR AA* 59 History Of Immunizations Name Date Admin Mfg Name Mfg Code Trade Name Lot# Route Inj Vis Given Vis Pub CVX Influenza 05/19/2011 sanofi pasteur PMC Fluzone [id number] Intramuscular Left Deltoid 05/19/2011 02/10/2011 141 Tdap 02/25/2012 sanofi pasteur PMC ADACEL [id number] Intramuscular Left Deltoid 02/25/2012 12/01/2006 999 Pneumococcal 05/16/2013 Kunjh-Tcbiiq-FkklbrpEfe WAL Ananar [id number] Intramuscular Left Deltoid 05/16/2013 02/09/2013 133 History [...] 2017 8:35AM Hypokalemia Feb 14 2017 5:11PM Payers Insurance Name Company Name Plan Name Plan Number Policy Number Policy Group Number [id number] Wednesday, 2004 Usd 503 Usd 503 [id number] Wednesday, 2009 Medicare Part A zzzMedicare A [...] 10/02/2012 Office visit Shiva Haywood MD 09/13/2012 [facility] Candida Stuart MD 06/28/2012 Office visit Hung [...] Anil Argueta MD 04/28/2011 Office visit Anil Argueat MD 04/09/2011 Office visit Anil Argueta MD [...]
--- OUTSIDE RECORDS SUMMARY | 2018-05-26 09:08 | XMS REPORT ---
Author Author Hung Jaramillo [facility] Address [address] [place], [place] [id number] Care Team Providers Care Computer Assembler Name Role Phone Hung Jaramillo PCP Unavailable Hung Jaramillo PreferredProvider Unavailable Allergies and Adverse Reactions Name Reaction Notes seasonal allergies Demerol SULFA (SULFONAMIDES) Plan of Treatment Planned Activity Comments Planned Date Planned Time Plan/Goal Hemoglobin A1c 02/08/2013 12:00 AM CBC With [...] 1ST FOOD/BEVERAGE OR MEDICATION OF THE DAY Name Start Date Expiration Date SIG Comments [...] Levbid 0.375 mg oral tablet extended release hr 10/02/2012 10/12/2012 take 1 tablet (0.375 [...] per day with meals for 30 days [employer] miscellaneous kit 11/08/2012 11/08/2012 test BS dailyICD-9 [...] route every 12 hours for 14 days Problem List Description Status Onset acid reflux Active Diabetes Mellitus, Type II Active Hypercholesterolemia Active Hypertension Active Lumbar spondylosis Active Scoliosis Active SI joint pain Active Vital Signs Date Time BP-Sys(mm[Hg] BP-Park(mm[Hg]) HR(bpm) RR(rpm) Temp WT HT HC BMI BSA BMI Percentile O2 Sat(%) 09/08/2016 11:14:00 AM 130 mmHg 82 mmHg [...] alcohol Denies illicit substance abuse 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 per 1mg-[facility] [id number]-Jjhxkwcqk Reviewed 06/14/2011 12:00 AM Depo-Medrol 80 Mg [facility] [id number]-Mjzodctsz Reviewed 01/08/2016 12:00 AM MAMMOGRAM BOTH BREASTS Reviewed 01/08/2016 12:00 AM COMPLETE CBC W/AUTO DIFF WBC Returned 01/08/2016 12:00 AM COMPREHEN METABOLIC PANEL Returned 01/08/2016 12:00 AM LIPID PANEL Returned 01/08/2016 12:00 AM GLYCOSYLATED HEMOGLOBIN TEST Returned 08/05/2011 12:00 AM DRAIN/INJ JOINT/BURSA W/O US Reviewed 08/05/2011 12:00 AM Kenalog 40 Mg Im-Ndc#5919-6064-10 Reviewed 11/04/2011 12:00 AM DRAIN/INJ JOINT/BURSA W/O US Reviewed 11/04/2011 12:00 AM Kenalog 40 Mg Im-Ndc#6625-3856-96 Reviewed 09/18/2009 12:00 AM COMPLETE CBC W/AUTO DIFF WBC Reviewed 09/18/2009 12:00 AM COMPREHEN METABOLIC PANEL Reviewed 09/18/2009 12:00 AM LIPID PANEL Reviewed 09/18/2009 12:00 AM GLYCOSYLATED HEMOGLOBIN TEST Reviewed 02/25/2012 12:00 AM IMMUNIZATION ADMIN Reviewed 02/25/2012 12:00 AM TDAP VACCINE 7 YRS/> IM Reviewed 03/23/2012 12:00 AM MAMMOGRAM SCREENING Reviewed 03/29/2012 12:00 AM Misbah Qi-[id number] ONEYDA Reviewed 03/29/2012 12:00 AM INJ TENDON [...] AND PARASITES SMEARS Reviewed 02/08/2013 12:00 AM COMPLETE CBC W/AUTO DIFF WBC Reviewed 02/08/2013 12:00 AM COMPREHEN METABOLIC PANEL Reviewed 02/08/2013 12:00 AM LIPID PANEL Reviewed 05/16/2013 12:00 AM PNEUMOCOCCAL VACC 7 FIDE IM Reviewed 01/13/2010 12:00 AM Misbah Qn-[id number] ONEYDA Reviewed 01/13/2010 12:00 AM INJ TENDON SHEATH/LIGAMENT Reviewed 04/07/2010 12:00 AM COMPLETE CBC W/AUTO DIFF WBC Reviewed 04/07/2010 12:00 AM COMPREHEN METABOLIC PANEL Reviewed 04/07/2010 12:00 AM LIPID PANEL Reviewed 04/07/2010 12:00 AM GLYCOSYLATED HEMOGLOBIN TEST Reviewed 05/21/2010 12:00 AM Misbah [id number] ONEYDA Reviewed 05/21/2010 12:00 AM INJ TENDON [...] 12:00 AM MAMMOGRAM SCREENING Reviewed Results Summary Data and Description Results 04/14/2010 8:53 AM TRIGLYCERIDES [...] CVX Influenza 05/19/2011 sanofi pasteur PMC Fluzone [id number] Intramuscular Left Deltoid 05/19/2011 02/10/2011 141 Tdap 02/25/2012 sanofi pasteur PMC ADACEL [id number] Intramuscular Left Deltoid 02/25/2012 12/01/2006 999 Pneumococcal 05/16/2013 Qbjuo-Mhvndv-MpuesglDipak Calderon [id number] Intramuscular Left Deltoid 05/16/2013 02/09/2013 133 History [...] 2016 11:18AM Sinusitis Sep 08 2016 11:19AM Payers Insurance Name Company Name Plan Name Plan Number Policy Number Policy Group Number Start Date BCBS [facility] [id number] Wednesday, 2004 Usd 503 Usd 503 [id number] Wednesday, 2009 Medicare Part A zzzMedicare A Secondary DOES NOT HAVE MEDICARE Wednesday, 2012 History of Encounters Visit Date Visit Type Provider 09/08/2016 Office visit Hung Jaramillo MD 07/28/2016 [...] 10/02/2012 Office visit Shiva Haywood MD 09/13/2012 [facility] Candida Stuart MD 06/28/2012 Office visit Hung Jaramillo MD 05/09/2012 Office visit Hung Jaramillo MD 04/28/2012 Office visit Anil Argueta MD 04/18/2012 Office visit Hung Jaramillo MD 03/29/2012 Office visit Anil Argueta MD 02/25/2012 Nurse visit Jeannette Bowles RN 01/03/2012 [facility] Albaro Pina MD 12/20/2011 [...]
--- OUTSIDE RECORDS SUMMARY | 2018-05-26 09:09 | XMS REPORT ---
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 per 1mg-[facility] [id number]-Ppppqsjyx Reviewed 06/14/2011 12:00 AM Depo-Medrol 80 Mg [facility] [id number]-Hkqazqhxh Reviewed 01/08/2016 12:00 AM MAMMOGRAM BOTH BREASTS Reviewed 01/08/2016 12:00 AM COMPLETE CBC W/AUTO DIFF WBC Reviewed 01/08/2016 12:00 AM COMPREHEN METABOLIC PANEL Reviewed 01/08/2016 12:00 AM LIPID PANEL Reviewed 01/08/2016 12:00 AM GLYCOSYLATED HEMOGLOBIN TEST Reviewed 08/05/2011 12:00 AM DRAIN/INJ JOINT/BURSA W/O US Reviewed 08/05/2011 12:00 AM Kenalog 40 Mg Im-Nd#1408-8557-38 Reviewed 11/04/2011 12:00 AM DRAIN/INJ JOINT/BURSA W/O US Reviewed 11/04/2011 12:00 AM Kenalog 40 Mg Im-Ndc#3520-8563-74 Reviewed 09/18/2009 12:00 AM COMPLETE CBC W/AUTO [...] MAMMOGRAM SCREENING Reviewed 03/29/2012 12:00 AM Kenalog [id number]-[id number] ONEYDA Reviewed 03/29/2012 12:00 AM INJ TENDON [...] FIDE IM Reviewed 01/13/2010 12:00 AM Kenalog Yb-[id number] ONEYDA Reviewed 01/13/2010 12:00 AM INJ TENDON SHEATH/LIGAMENT Reviewed 04/07/2010 12:00 AM COMPLETE CBC W/AUTO DIFF WBC Reviewed 04/07/2010 12:00 AM COMPREHEN METABOLIC PANEL Reviewed 04/07/2010 12:00 AM LIPID PANEL Reviewed 04/07/2010 12:00 AM GLYCOSYLATED HEMOGLOBIN TEST Reviewed 05/21/2010 12:00 AM Misbah Ce-[id number] ONEYDA Reviewed 05/21/2010 12:00 AM INJ TENDON [...] CVX Influenza 05/19/2011 sanofi pasteur PMC Fluzone [id number] Intramuscular Left Deltoid 05/19/2011 02/10/2011 141 Tdap 02/25/2012 [facility] ADACEL [id number] Intramuscular Left Deltoid 02/25/2012 12/01/2006 999 Pneumococcal 05/16/2013 Alycia FERNANDA Calderon [id number] Intramuscular Left Deltoid 05/16/2013 02/09/2013 133 History [...] Number Policy Group Number Start Date BCBS [facility] [id number] Wednesday, 2004 Usd 503 Usd 503 [id number] Wednesday, 2009 Medicare Part A zzzMedicare A [...] 02/25/2012 Nurse visit Jeannette Mcgrath RN 01/03/2012 [facility] Albaro Pina MD 12/20/2011 Office visit [...]
--- OUTSIDE RECORDS SUMMARY | 2018-05-26 09:11 | XMS REPORT ---
Author Author Hung Jaramillo [facility] Address [address] [place], [place] [id number] Care Team Providers Care Beach Attendant Name Role Phone Hung Jaramillo PCP Hung Jaramillo PreferredProvider Allergies and Adverse Reactions Name Reaction Notes seasonal allergies Demerol SULFA (SULFONAMIDES) Plan of Treatment Planned Activity Comments Planned Date Planned Time Plan/Goal CBC with Auto 07/26/2017 12:00 AM CMP (comprehensive metabolic panel) 07/26/2017 12:00 AM Lipid profile 07/26/2017 12:00 AM Hemoglobin A1C 07/26/2017 12:00 AM Hemoglobin A1c 02/08/2013 12:00 [...] ONCE EVERY DAY OneTouch UltraSoft Lancets miscellaneous [facility] 04/05/2017 test blood sugars daily ICD-10 E11.9 ciprofloxacin HCl 0.2 % otic (ear) dropperette 04/15/2017 instill 0.25 milliliter (0.5 mg) into left ear by otic route every 12 hours for 7 days Jentadueto 2.5-1,000 mg oral tablet 06/03/2017 04/29/2018 [...] route every 12 hours for 14 days GangkrTouch Ultra Test miscellaneous strip 11/23/2010 11/23/2010 use [...] per day with meals for 30 days [employer] 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 per 1mg-[facility] [id number] Reviewed 06/14/2011 12:00 AM Depo-Medrol 80 Mg [facility] [id number] Reviewed 01/08/2016 12:00 AM MAMMOGRAM BOTH BREASTS Reviewed 01/08/2016 12:00 AM COMPLETE CBC W/AUTO DIFF WBC Reviewed 01/08/2016 12:00 AM COMPREHEN METABOLIC PANEL Reviewed 01/08/2016 12:00 AM LIPID PANEL Reviewed 01/08/2016 12:00 AM GLYCOSYLATED HEMOGLOBIN TEST Reviewed 08/05/2011 12:00 AM DRAIN/INJ JOINT/BURSA W/O US Reviewed 08/05/2011 12:00 AM Kenalog 40 Mg Im-[facility]#[id number] Reviewed 11/04/2011 12:00 AM DRAIN/INJ JOINT/BURSA W/O US Reviewed 11/04/2011 12:00 AM Kenalog 40 Mg Im-[facility]#[id number] Reviewed 09/18/2009 12:00 AM COMPLETE CBC W/AUTO [...] MAMMOGRAM SCREENING Reviewed 03/29/2012 12:00 AM Misbah [id number] ONEYDA Reviewed 03/29/2012 12:00 AM INJ TENDON SHEATH/LIGAMENT Reviewed 04/18/2012 12:00 AM METABOLIC PANEL TOTAL CA Reviewed 04/18/2012 12:00 AM COMPLETE CBC W/AUTO DIFF WBC Reviewed 04/18/2012 12:00 AM GLYCOSYLATED HEMOGLOBIN TEST Reviewed 04/05/2017 12:00 AM MAMMOGRAM BOTH BREASTS Returned 09/25/2012 12:00 AM COMPLETE CBC W/AUTO [...] FIDE IM Reviewed 01/13/2010 12:00 AM Misbah [id number] ONEYDA Reviewed 01/13/2010 12:00 AM INJ TENDON SHEATH/LIGAMENT Reviewed 04/07/2010 12:00 AM COMPLETE CBC W/AUTO DIFF WBC Reviewed 04/07/2010 12:00 AM COMPREHEN METABOLIC PANEL Reviewed 04/07/2010 12:00 AM LIPID PANEL Reviewed 04/07/2010 12:00 AM GLYCOSYLATED HEMOGLOBIN TEST Reviewed 05/21/2010 12:00 AM Misbah [id number] ONEYDA Reviewed 05/21/2010 12:00 AM INJ TENDON [...] CVX Influenza 05/19/2011 sanofi pasteur PMC Fluzone [id number] Intramuscular Left Deltoid 05/19/2011 02/10/2011 141 Tdap 02/25/2012 sanofi pasteur PMC ADACEL [id number] Intramuscular Left Deltoid 02/25/2012 12/01/2006 999 Pneumococcal 05/16/2013 Xpapz-Zubgde-RclasdhDipak [facility] Prevnar [id number] Intramuscular Left Deltoid 05/16/2013 02/09/2013 133 History [...] 2017 1:42PM Hyperlipidemia Jul 26 2017 1:42PM Payers Insurance Name Company Name Plan Name Plan Number Policy Number Policy Group Number Start Date BCBS [employer] [place] [id number] Wednesday, 2004 Usd 503 Usd 503 [id number] Wednesday, 2009 Medicare Part A zzzMedicare A [...] 10/04/2012 Office visit Shiva Haywood MD 10/04/2012 [facility] Shiva Haywood MD 10/02/2012 Office visit Shiva Haywood MD 09/13/2012 [facility] Candida Stuart MD 06/28/2012 Office visit [...]
--- OUTSIDE RECORDS SUMMARY | 2018-05-26 09:12 | XMS REPORT ---
Author Author Hung Jaramillo [facility] Address [address] [place], [place] [phone] Care Team Providers Care Intelligence Support Officer Name Role Phone Hung Jaramillo PCP Unavailable Allergies and Adverse Reactions Name Reaction Notes seasonal allergies Demerol SULFA (SULFONAMIDES) Plan of Treatment Planned Activity Comments Planned Date Planned Time Plan/Goal GLYCOSYLATED HEMOGLOBIN TEST 02/08/2013 12:00 AM COMPLETE CBC W/AUTO DIFF WBC 03/26/2014 12:00 AM COMPREHEN METABOLIC PANEL 03/26/2014 12:00 AM LIPID PANEL 03/26/2014 12:00 AM X-RAY EXAM OF KNEE 3 12/13/2014 12:00 AM COMPLETE CBC W/AUTO DIFF WBC 01/07/2015 12:00 AM COMPREHEN METABOLIC PANEL 01/07/2015 12:00 AM LIPID PANEL 01/07/2015 12:00 AM GLYCOSYLATED HEMOGLOBIN TEST 01/07/2015 12:00 AM MAMMOGRAM SCREENING 01/07/2015 12:00 AM Medications Active Name Start Date Estimated Completion Date SIG Comments Aspirin Oral Tablet 81 mg take 1 tablet by oral route daily Nasonex Nasal [place], Non-Aerosol 50 mcg/actuation 05/16/2013 spray 2 sprays in each nostril by intranasal route once daily Jentadueto oral tablet 2.5-1,000 mg 06/12/2013 TAKE 1 TABLET BY MOUTH TWICE DAILY WITH MEALS glyburide micronized oral tablet 6 mg 06/19/2013 TAKE 1/2 TABLET EACH MORNING AND 1 TABLET EACH EVENING promethazine-codeine oral syrup 6.25-10 mg/5 mL 08/13/2013 take 5 milliliters by oral route every 6 hours as needed, not to exceed 30 mL in 24 hours alendronate oral tablet 70 mg 09/18/2013 TAKE 1 TABLET BY MOUTH ONCE WEEKLY IN THE MORNING AT LEAST 30 MINUTES BEFORE 1ST FOOD/BEVERAGE OR MEDICATION OF THE DAY montelukast oral tablet 10 mg 10/11/2013 TAKE 1 TABLET BY MOUTH EVERY DAY Contour Test Strips miscellaneous strip 11/12/2013 TEST BLOOD SUGAR DAILY DIRECTED amlodipine oral tablet 5 mg 12/05/2013 TAKE 1 TABLET BY MOUTH EVERY DAY Jentadueto oral tablet 2.5-1,000 mg 12/05/2013 TAKE 1 TABLET BY MOUTH TWICE DAILY WITH MEALS Benicar HCT oral tablet 40-25 mg 12/25/2013 TAKE 1 TABLET BY MOUTH EVERY DAY alendronate oral tablet 70 mg 03/08/2014 TAKE 1 TABLET BY MOUTH ONCE WEEKLY IN THE MORNING AT LEAST 30 MINUTES BEFORE 1ST FOOD/BEVERAGE OR MEDICATION OF THE DAY Jentadueto oral tablet 2.5-1,000 mg 05/09/2014 TAKE 1 TABLET BY MOUTH TWICE DAILY WITH MEALS montelukast oral tablet 10 mg 07/16/2014 TAKE 1 TABLET BY MOUTH EVERY DAY glyburide micronized oral tablet 6 mg 07/22/2014 TAKE 1/2 TABLET EACH MORNING AND 1 TABLET EACH EVENING alendronate oral tablet 70 mg 07/22/2014 TAKE 1 TABLET BY MOUTH ONCE WEEKLY IN THE MORNING AT LEAST 30 MINUTES BEFORE 1ST FOOD/BEVERAGE OR MEDICATION OF THE DAY Jentadueto oral tablet 2.5-1,000 mg 09/10/2014 TAKE 1 TABLET BY MOUTH TWICE DAILY WITH MEALS Benicar HCT oral tablet 40-25 mg 10/31/2014 TAKE 1 TABLET BY MOUTH EVERY DAY alendronate oral tablet 70 mg 11/11/2014 TAKE 1 TABLET BY MOUTH ONCE WEEKLY IN THE MORNING AT LEAST 30 MINUTES BEFORE 1ST FOOD/BEVERAGE OR MEDICATION OF THE DAY Name Start Date Expiration Date SIG Comments Amoxicillin Oral Capsule 500 mg 08/11/2009 08/21/2009 take 2 capsules by oral route 3 times a day for 5 days Medrol (Kurt) Oral Tablets, Dose Pack 4 mg 08/11/2009 08/21/2009 take as directed for 5 days Augmentin Oral Tablet 875-125 mg 10/23/2009 11/20/2009 take 1 tablet by oral route every 12 hours for 14 days One Touch Ultra Test Misc.(Non-Drug; Combo Route) Strip 11/23/2010 11/23/2010 use as directed Levaquin Oral Tablet 750 mg 05/19/2011 06/02/2011 take 1 tablet (750 mg) by oral route once daily for 7 days Medrol (Kurt) Oral Tablets, Dose Pack 4 mg 07/15/2011 07/15/2011 take as directed diclofenac sodium Oral Tablet, Delayed Release (E.C.) 50 mg 12/29/20112011 TAKE 1 TABLET BY MOUTH TWICE DAILY glyburide micronized Oral tablet 6 mg 04/24/2012 06/29/2012 TAKE 1/2 TABLET EACH MORNING AND 1 TABLET EACH EVENING Levaquin Oral tablet 500 mg 05/09/2012 05/23/2012 take 1 tablet (500 mg) by oral route once daily for 7 days pantoprazole Oral tablet,delayed release (DR/EC) 40 mg 05/16/2012 06/15/2012 TAKE 1 TABLET BY MOUTH EVERY DAY metformin Oral tablet extended release 24 hr 500 mg 06/22/2012 07/22/2012 TAKE 2 TABLETS BY MOUTH TWICE DAILY WelChol Oral tablet 625 mg 08/03/2012 09/02/2012 TAKE 3 TABLETS BY MOUTH TWICE DAILY amoxicillin-pot clavulanate Oral tablet 875-125 mg 09/04/2012 09/14/2012 TAKE 1 TABLET BY MOUTH EVERY 12 HOURS Levbid Oral tablet extended release 12 hr 0.375 mg 10/02/2012 10/12/2012 take 1 tablet (0.375 mg) by oral route every 12 hours for 10 days amlodipine Oral tablet 5 mg 10/09/2012 02/21/2014 TAKE 1 TABLET BY MOUTH EVERY DAY Benicar HCT Oral tablet 40-25 mg 10/09/2012 11/13/2013 TAKE 1 TABLET BY MOUTH EVERY DAY montelukast Oral tablet 10 mg 10/09/2012 10/04/2013 TAKE 1 TABLET BY MOUTH EVERY DAY Jentadueto Oral tablet 2.5-1,000 mg 11/01/2012 05/30/2013 take 1 tablet by oral route 2 times per day with meals for 30 days One Touch Ultra 2 Miscellaneous Kit 11/08/2012 11/08/2012 test BS dailyICD-9 250.00 Fosamax Oral tablet 70 mg 03/06/2013 03/06/2013 take 1 tablet (70 mg) by oral route once weekly in the morning, at least 30 min before first food, beverage, or medication of day Zithromax Z-Kurt Oral Tablet 250 mg 05/21/2013 05/31/2013 take 2 tablets (500 mg) by oral route once daily for 1 day then 1 tablet (250 mg) by oral route once daily for 4 days tramadol oral tablet 50 mg 01/08/2011 10/02/2012 TAKE 1 TABLET BY MOUTH TWICE DAILY Voltaren topical gel 1 % 04/09/2011 10/02/2012 apply 4 gram to the affected area(s) by topical route 4 times per day for 30 days Pennsaid topical drops 1.5 % 08/05/2011 10/02/2012 apply 40 drops to affected area by topical route 4 times per day Augmentin oral tablet 875-125 mg 10/01/2013 10/08/2013 take 1 tablet by oral route every 12 hours for 7 days amoxicillin oral tablet 875 mg 10/26/2013 11/23/2013 take 1 tablet (875 mg) by oral route every 12 hours for 14 days amoxicillin oral tablet 875 mg 06/17/2014 07/01/2014 take 1 tablet (875 mg) by oral route every 12 hours for 14 days Zithromax Z-Kurt oral tablet 250 mg 08/09/2014 08/14/2014 take 2 tablets (500 mg) by oral route once daily for 1 day then 1 tablet (250 mg) by oral route once daily for 4 days Zithromax Z-Kurt oral tablet 250 mg 08/15/2014 take 2 tablets (500 mg) by oral route once daily for 1 day then 1 tablet (250 mg) by oral route once daily for 4 days Discontinued Name Start Date Discontinued Date SIG Comments Benicar Oral Tablet 40 mg 09/18/2009 take 1 tablet (40 mg) by oral route once daily Zyrtec Oral Tablet 10 mg 08/13/2013 take 1 tablet (10 mg) by oral route once daily Ultracet Oral Tablet 37.5-325 mg 01/13/2010 1 tab bid/PRN Meloxicam Oral Tablet 15 mg 01/20/2010 02/12/2010 take 1 tablet (15 mg) by oral route once daily for 30 days Anusol-HC Rectal Cream 2.5 % 09/28/2012 11/14/2012 apply to the affected area( s) by topical route 4 times per day baclofen Oral tablet 10 mg 09/29/2012 11/14/2012 take 1 tablet by oral route 3 times a day as needed Zithromax Z-Kurt Oral Tablet 250 mg 08/13/2013 10/26/2013 take 2 tablets (500 mg) by oral route once daily for 1 day then 1 tablet (250 mg) by oral route once daily for 4 days Problem List Description Status Onset acid reflux Active Diabetes Mellitus, Type II Active Hypercholesterolemia Active Hypertension Active Lumbar spondylosis Active Scoliosis Active SI joint pain Active Vital Signs Date Time BP-Sys(mm[Hg] BP-Park(mm[Hg]) HR(bpm) RR(rpm) Temp WT HT HC BMI BSA BMI Percentile O2 Sat(%) 12/13/2014 8:33:00 AM 126 mmHg 76 mmHg [...] alcohol Denies illicit substance abuse 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 Tobacco Never smoker History of Procedures Date Ordered Description Order Status 04/09/2011 12:00 AM INJ TENDON SHEATH/LIGAMENT Reviewed 05/06/2011 12:00 AM DRAIN/INJ JOINT/BURSA W/O US Reviewed 05/13/2011 12:00 AM DRAIN/INJ JOINT/BURSA W/O US Reviewed 05/20/2011 12:00 AM DRAIN/INJ JOINT/BURSA W/O US Reviewed 05/19/2011 12:00 AM FLU VACCINE 3 YRS & > IM Reviewed 08/05/2011 12:00 AM DRAIN/INJ JOINT/BURSA W/O US Reviewed 11/04/2011 12:00 AM DRAIN/INJ JOINT/BURSA W/O US Reviewed 09/18/2009 12:00 AM COMPLETE CBC W/AUTO DIFF WBC Reviewed 09/18/2009 12:00 AM COMPREHEN METABOLIC PANEL Reviewed 09/18/2009 12:00 AM LIPID PANEL Reviewed 09/18/2009 12:00 AM GLYCOSYLATED HEMOGLOBIN TEST Reviewed 02/25/2012 12:00 AM IMMUNIZATION ADMIN Reviewed 02/25/2012 12:00 AM TDAP VACCINE 7 YRS/> IM Reviewed 03/23/2012 12:00 AM MAMMOGRAM SCREENING Returned 03/29/2012 12:00 AM INJ TENDON SHEATH/LIGAMENT Reviewed [...] 7 FIDE IM Reviewed 01/13/2010 12:00 AM INJ TENDON SHEATH/LIGAMENT Reviewed 04/07/2010 12:00 AM COMPLETE CBC W/AUTO DIFF WBC Reviewed 04/07/2010 12:00 AM COMPREHEN METABOLIC PANEL Reviewed 04/07/2010 12:00 AM LIPID PANEL Reviewed 04/07/2010 12:00 AM GLYCOSYLATED HEMOGLOBIN TEST Reviewed 05/21/2010 12:00 AM INJ TENDON SHEATH/LIGAMENT [...] 06/17/2014 12:00 AM ASSAY OF PARATHORMONE Reviewed Results Summary Data and Description Results 04/14/2010 8:53 AM TRIGLYCERIDES 121.0 mg/dLCHOLESTEROL 177.0 mg/dLHDL 41.0 mg/ dLLDL (CALC) 112.0 mg/dLGLYCOHEMOGLOBIN A1C 7.20 %GLUCOSE 128.0 mg/dLSODIUM 136.0 mmol/LPOTASSIUM 4.20 mmol/LCHLORIDE 100.0 mmol/LCO2 27.0 mmol/LBUN 21.0 mg /dLCREATININE 0.70 mg/dLSGOT/AST 14.0 IU/LSGPT/ALT 12.0 IU/LALK PHOS 74.0 IU/ LTOTAL PROTEIN 7.20 g/dLALBUMIN 4.20 g/dLTOTAL BILI 1.20 mg/dLCALCIUM 9.80 mg/ dLeGFR >60 mL/min/1.73 m2WBC 7.7 RBC 4.25 HGB 13.40 g/dLHCT 39.40 %MCV 93.0 fLMCH 31.50 pgMCHC 34.0 g/dLRDW CV 13.30 %MPV 9.80 fLPLT 396 %NEUT 49.40 %%LYMP 41.50 %%MONO 6.90 %%EOS 1.80 %%BASO 0.40 %#NEUT 3.81 #LYMP 3.20 #MONO 0.53 #EOS 0.14 #BASO 0.03 09/23/2010 11:27 AM GLYCOHEMOGLOBIN A1C 7.60 %GLUCOSE 188.0 mg/dLSODIUM 139.0 mmol/LPOTASSIUM 3.90 mmol/LCHLORIDE 101.0 mmol/LCO2 26.0 mmol/LBUN 22.0 mg/ dLCREATININE 0.70 mg/dLCALCIUM 9.90 mg/dLeGFR >60 mL/min/1.73 m2WBC 15.0 RBC 4.08 HGB 12.70 g/dLHCT 39.0 %MCV 96.0 fLMCH 31.10 pgMCHC 32.60 g/dLRDW CV 13.50 %MPV 10.20 fLPLT 404 %NEUT 71.90 %%LYMP 20.40 %%MONO 7.0 %%EOS 0.50 %%BASO 0.20 %#NEUT 10.79 #LYMP 3.06 #MONO 1.05 #EOS 0.07 #BASO 0.03 04/18/2012 3:15 PM GLUCOSE 154.0 mg/dLSODIUM 139.0 mmol/LPOTASSIUM 4.80 mmol/ LCHLORIDE 104.0 mmol/LCO2 23.0 mmol/LBUN 38.0 mg/dLCREATININE 1.20 mg/dLCALCIUM 10.10 mg/dLeGFR 45 WBC 8.7 RBC 3.84 HGB 11.70 g/dLHCT 35.80 %MCV 93.0 fLMCH 30.50 pgMCHC 32.70 g/dLRDW CV 13.90 %MPV 10.10 fLPLT 446 %NEUT 57.10 %%LYMP 33.60 %%MONO 6.70 %%EOS 2.30 %%BASO 0.30 %#NEUT 4.95 #LYMP 2.91 #MONO 0.58 #EOS 0.20 #BASO 0.03 GLYCOHEMOGLOBIN A1C 7.60 % 09/25/2012 9:24 AM GLUCOSE 242.0 mg/dLSODIUM 134.0 mmol/LPOTASSIUM 4.60 mmol/ LCHLORIDE 98.0 mmol/LCO2 24.0 mmol/LBUN 21.0 mg/dLCREATININE 0.90 mg/dLSGOT/AST 16.0 IU/LSGPT/ALT 22.0 IU/LALK PHOS 117.0 IU/LTOTAL PROTEIN 7.60 g/dLALBUMIN 3.70 g/dLTOTAL BILI 0.60 mg/dLCALCIUM 10.20 mg/dLeGFR 60 TSH 1.370 uIU/mLWBC 9.6 RBC 3.40 HGB 10.0 g/dLHCT 31.30 %MCV 92.0 fLMCH 29.40 pgMCHC 31.90 g/dLRDW CV 13.80 %MPV 8.90 fLPLT 1028 %NEUT 75.10 %%LYMP 15.80 %%MONO 7.70 %%EOS 1.10 %% BASO 0.30 %#NEUT 7.24 #LYMP 1.52 #MONO 0.74 #EOS 0.11 #BASO 0.03 GLYCOHEMOGLOBIN A1C 7.80 % 09/25/2012 4:34 PM C DIFFICILE NEGATIVE -- C DIFF TOXIN NOT DETECTED 02/28/2013 8:15 AM WBC 7.7 RBC 3.98 HGB 11.70 g/dLHCT 36.60 %MCV 92.0 fLMCH 29.40 pgMCHC 32.0 g/dLRDW CV 15.90 %MPV 10.0 fLPLT 500 %NEUT 60.10 %%LYMP 30.0 % %MONO 8.0 %%EOS 1.40 %%BASO 0.50 %#NEUT 4.64 #LYMP 2.32 #MONO 0.62 #EOS 0.11 # BASO 0.04 GLUCOSE 152.0 mg/dLSODIUM 138.0 mmol/LPOTASSIUM 4.80 mmol/LCHLORIDE 103.0 mmol/LCO2 24.0 mmol/LBUN 24.0 mg/dLCREATININE 1.0 mg/dLSGOT/AST 16.0 IU/ LSGPT/ALT 10.0 IU/LALK PHOS 75.0 IU/LTOTAL PROTEIN 7.70 g/dLALBUMIN 4.30 g/ dLTOTAL BILI 0.80 mg/dLCALCIUM 10.60 mg/dLeGFR 56 TRIGLYCERIDES 135.0 mg/ dLCHOLESTEROL 218.0 mg/dLHDL 42.0 mg/dLLDL (CALC) 149.0 mg/dLHGB A1C 6.80 % 06/12/2014 8:27 AM GLUCOSE 138.0 mg/dLSODIUM 139.0 mmol/LPOTASSIUM 4.40 mmol/ LCHLORIDE 101.0 mmol/LCO2 23.0 mmol/LBUN 29.0 mg/dLCREATININE 1.0 mg/dLSGOT/AST 14.0 IU/LSGPT/ALT 12.0 IU/LALK PHOS 74.0 IU/LTOTAL PROTEIN 8.0 g/dLALBUMIN 4.50 g/dLTOTAL BILI 0.60 mg/dLCALCIUM 11.30 mg/dLeGFR 55 TRIGLYCERIDES 112.0 mg/ dLCHOLESTEROL 202.0 mg/dLHDL 39.0 mg/dLLDL (CALC) 141.0 mg/dLWBC 8.4 RBC 4.18 HGB 13.0 g/dLHCT 38.90 %MCV 93.0 fLMCH 31.10 pgMCHC 33.40 g/dLRDW CV 13.50 %MPV 10.30 fLPLT 462 %NEUT 63.50 %%LYMP 27.80 %%MONO 6.50 %%EOS 1.80 %%BASO 0.40 %# NEUT 5.36 #LYMP 2.35 #MONO 0.55 #EOS 0.15 #BASO 0.03 HGB A1C 8.60 % 07/08/2014 11:22 AM WBC 9.0 RBC 3.96 HGB 12.50 g/dLHCT 37.70 %MCV 95.0 fLMCH 31.60 pgMCHC 33.20 g/dLRDW CV 13.40 %MPV 10.10 fLPLT 445 %NEUT 70.20 %%LYMP 23.50 %%MONO 5.10 %%EOS 1.0 %%BASO 0.20 %#NEUT 6.28 #LYMP 2.10 #MONO 0.46 #EOS 0.09 #BASO 0.02 GLUCOSE 260.0 mg/dLSODIUM 138.0 mmol/LPOTASSIUM 4.40 mmol/ LCHLORIDE 104.0 mmol/LCO2 22.0 mmol/LBUN 24.0 mg/dLCREATININE 1.0 mg/dLSGOT/AST 13.0 IU/LSGPT/ALT 13.0 IU/LALK PHOS 71.0 IU/LTOTAL PROTEIN 7.50 g/dLALBUMIN 4.20 g/dLTOTAL BILI 0.40 mg/dLCALCIUM 10.10 mg/dLeGFR 55 TSH 2.320 uIU/mL History Of Immunizations Name Date Admin Mfg Name Mfg Code Trade Name Lot# Route Inj Vis Given Vis Pub CVX Influenza 05/19/2011 sanofi pasteur PMC Fluzone [id number] Intramuscular Left Deltoid 05/19/2011 02/10/2011 141 Tdap 02/25/2012 [facility] ADACEL [id number] Intramuscular Left Deltoid 02/25/2012 12/01/2006 999 PCV 05/16/2013 Alycia FERNANDA Calderon [id number] Intramuscular Left Deltoid 05/16/2013 02/09/2013 133 History [...] 5:33PM Screening Mammogram Jan 07 2015 5:36PM Payers Insurance Name Company Name Plan Name Plan Number Policy Number Policy Group Number Start Date [facility] [id number] Wednesday, 2004 Medicare Part A Medicare A Secondary [id number] Tuesday, 2012 Usd 503 Usd 503 [id number] Wednesday, 2009 History of Encounters Visit Date Visit Type Provider 12/13/2014 Office visit Sunny Lebron MD 06/17/2014 Office visit Hung Jaramillo MD 03/26/2014 Office visit Hung Jaramillo MD 10/26/2013 Office visit Hung Jaramillo MD 10/01/2013 Office visit Hung Jaramillo MD 08/13/2013 Office visit Hung Jaramillo MD 05/16/2013 Office visit Hung Jaramillo MD 01/16/2013 Office visit Anil Argueta MD 11/14/2012 Office visit Hung Jaramillo MD 10/09/2012 Office visit Hung Jaramillo MD 10/04/2012 Office visit Shiva Haywood MD 10/04/2012 [facility] Shiva Haywood MD 10/02/2012 Office visit Shiva Haywood MD 09/13/2012 [facility] Candida Stuart MD 06/28/2012 Office visit Hung Jaramillo MD 05/09/2012 Office visit Hung Jaramillo MD 04/28/2012 Office visit Anil Argueta MD 04/18/2012 Office visit Hung Jaramillo MD 03/29/2012 Office visit Anil Argueta MD 02/25/2012 Nurse visit Jeannette Bowles RN 01/03/2012 [facility] Albaro Pina MD 12/20/2011 Office visit Anil [...] 07/02/2009 Office visit Hung Jaramillo MD 06/18/2009 Laboratory Hung Jaramillo MD 06/18/2009 Office visit Anil Argueta MD 04/21/2009 Office visit Anil Argueta MD 03/21/2009 Office visit Anil Argueta MD
[2018-05-26] MEDS: TETRACAINE 0.5% OPHTH SOLN 4 ML BTL (SINGLE DOSE ONLY) OU PRN ×4 (09:13→09:32)
[2018-05-26] MEDS ORDERED: MIDAZOLAM 2 MG/2 ML (VERSED) VIAL ONE (09:14)
--- OUTSIDE RECORDS SUMMARY | 2018-05-26 09:14 | XMS REPORT ---
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 per 1mg-[facility] [id number] Reviewed 06/14/2011 12:00 AM Depo-Medrol [address] [facility] [id number] Reviewed 01/08/2016 12:00 AM MAMMOGRAM BOTH BREASTS Reviewed 01/08/2016 12:00 AM COMPLETE CBC W/AUTO DIFF WBC Reviewed 01/08/2016 12:00 AM COMPREHEN METABOLIC PANEL Reviewed 01/08/2016 12:00 AM LIPID PANEL Reviewed 01/08/2016 12:00 AM GLYCOSYLATED HEMOGLOBIN TEST Reviewed 08/05/2011 12:00 AM DRAIN/INJ JOINT/BURSA W/O US Reviewed 08/05/2011 12:00 AM Kenalog 40 Mg Im-[facility]#[id number] Reviewed 11/04/2011 12:00 AM DRAIN/INJ JOINT/BURSA W/O US Reviewed 11/04/2011 12:00 AM Kenalog 40 Mg Im-[facility]#[id number] Reviewed 09/18/2009 12:00 AM COMPLETE CBC W/AUTO [...] MAMMOGRAM SCREENING Reviewed 03/29/2012 12:00 AM Kenalog [id number] ONEYDA Reviewed 03/29/2012 12:00 AM INJ TENDON [...] FIDE IM Reviewed 01/13/2010 12:00 AM Misbah [id number] ONEYDA Reviewed 01/13/2010 12:00 AM INJ TENDON SHEATH/LIGAMENT Reviewed 04/07/2010 12:00 AM COMPLETE CBC W/AUTO DIFF WBC Reviewed 04/07/2010 12:00 AM COMPREHEN METABOLIC PANEL Reviewed 04/07/2010 12:00 AM LIPID PANEL Reviewed 04/07/2010 12:00 AM GLYCOSYLATED HEMOGLOBIN TEST Reviewed 05/21/2010 12:00 AM Misbah [id number] ONEYDA Reviewed 05/21/2010 12:00 AM INJ TENDON [...] 13.0 g/dLHCT 39.0 %MCV 94.0 fLMCH 31.30 [facility] 33.[facility] g/dLRDW SD 44 RDW CV 13.0 [...] HGB 12.60 g /dLHCT 36.70 %MCV 91.0 [facility] 31.30 [facility] 34.30 g/dLRDW SD 41 RDW CV 12.50 [...] CVX Influenza 05/19/2011 sanofi pasteur PMC Fluzone [id number] Intramuscular Left Deltoid 05/19/2011 02/10/2011 141 Tdap 02/25/2012 sanofi pasteur PMC ADACEL [id number] Intramuscular Left Deltoid 02/25/2012 12/01/2006 999 Pneumococcal 05/16/2013 Alycia [facility] Prevnar [id number] Intramuscular Left Deltoid 05/16/2013 02/09/2013 133 History [...] Group Number Start Date BCBS [employer] [place] [id number] Wednesday, 2004 Usd 503 Usd 503 [id number] Wednesday, 2009 Medicare Part A zzzMedicare A [...] 10/04/2012 Office visit Shiva Haywood MD 10/04/2012 [facility] Shiva Haywood MD 10/02/2012 Office visit Shiva Haywood MD 09/13/2012 [facility] Candida Stuart MD 06/28/2012 Office visit Hung Jaramillo MD 05/09/2012 Office visit Hung Jaramillo MD 04/28/2012 Office visit Anil Argueta MD 04/18/2012 Office visit Hung Jaramillo MD 03/29/2012 Office visit Anil Argueta MD 02/25/2012 Nurse visit Jeannette Mcgrath RN 01/03/2012 [facility] Albaro Pina MD 12/20/2011 Office visit [...]
--- OUTSIDE RECORDS SUMMARY | 2018-05-26 09:15 | XMS REPORT ---
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 smoker [...] CVX Influenza 05/19/2011 sanofi pasteur PMC Fluzone [id number] Intramuscular Left Deltoid 05/19/2011 02/10/2011 141 Tdap 02/25/2012 [facility] ADACEL [id number] Intramuscular Left Deltoid 02/25/2012 12/01/2006 999 PCV 05/16/2013 Alycia FERNANDA Calderon [id number] Intramuscular Left Deltoid 05/16/2013 02/09/2013 133 History [...] 2015 5:33PM Hyperlipidemia Jan 07 2015 5:33PM Payers Insurance Name Company Name Plan Name Plan Number Policy Number Policy Group Number Start Date Bcbs Bcbs [facility] [id number] Wednesday, 2004 Medicare Part A Medicare A Secondary [id number] Tuesday, 2012 Usd 503 Usd 503 [id number] Wednesday, 2009 History of Encounters Visit Date [...] 10/04/2012 Office visit Shiva Haywood MD 10/04/2012 [facility] Shiva Haywood MD 10/02/2012 Office visit Shiva Haywood MD 09/13/2012 [facility] Candida Stuart MD 06/28/2012 Office visit Hung Jaramillo MD 05/09/2012 Office visit Hung Jaramillo MD 04/28/2012 Office visit Anil Argueta MD 04/18/2012 Office visit Hung Jaramillo MD 03/29/2012 Office visit Anil Argueta MD 02/25/2012 Nurse visit Jeannette Bowles RN 01/03/2012 [facility] Albaro Pina MD 12/20/2011 Office [...]
--- OUTSIDE RECORDS SUMMARY | 2018-05-26 09:16 | XMS REPORT ---
Author Author Hung Jaramillo [facility] Address [address] [place], [place] [address] Care Team Providers Care Advertising Representative Name Role Phone Hung Jaramillo PCP Unavailable Hung Jaramillo PreferredProvider Unavailable Allergies and Adverse Reactions Name Reaction Notes seasonal allergies Demerol SULFA (SULFONAMIDES) Plan of Treatment Planned Activity Comments Planned Date Planned Time Plan/Goal CBC With Auto Differential 01/31/2017 12:00 AM CMP 01/31/2017 12:00 AM Hemoglobin A1C 01/31/2017 12:00 AM Thyroid stimulating hormone (TSH) 01/31/2017 12:00 AM Vitamin B12 01/31/2017 12:00 AM Hemoglobin A1c 02/08/2013 12:00 AM [...] DAY Amitiza 8 mcg oral capsule 01/31/2017 02/10/2017 take 1 capsule (8 mcg) by oral route 2 times per day with food and water for 10 days Name Start Date Expiration Date SIG [...] per day with meals for 30 days Apofore Ultra2 miscellaneous kit 11/08/2012 11/08/2012 test BS [...] HC BMI BSA BMI Percentile O2 Sat(%) 01/31/2017 2:57:00 PM 136 mmHg 74 mmHg [...] alcohol Denies illicit substance abuse 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 per 1mg-[facility] [id number] Reviewed 06/14/2011 12:00 AM Depo-Medrol [address] [facility] [id number]-Hjbddjohg Reviewed 01/08/2016 12:00 AM MAMMOGRAM BOTH BREASTS Reviewed 01/08/2016 12:00 AM COMPLETE CBC W/AUTO DIFF WBC Reviewed 01/08/2016 12:00 AM COMPREHEN METABOLIC PANEL Reviewed 01/08/2016 12:00 AM LIPID PANEL Reviewed 01/08/2016 12:00 AM GLYCOSYLATED HEMOGLOBIN TEST Reviewed 08/05/2011 12:00 AM DRAIN/INJ JOINT/BURSA W/O US Reviewed 08/05/2011 12:00 AM Kenalog 40 Mg Im-[facility]#[id number] Reviewed 11/04/2011 12:00 AM DRAIN/INJ JOINT/BURSA W/O US Reviewed 11/04/2011 12:00 AM Kenalog 40 Mg Im-[facility]#[id number] Reviewed 09/18/2009 12:00 AM COMPLETE CBC W/AUTO DIFF WBC Reviewed 09/18/2009 12:00 AM COMPREHEN METABOLIC PANEL Reviewed 09/18/2009 12:00 AM LIPID PANEL Reviewed 09/18/2009 12:00 AM GLYCOSYLATED HEMOGLOBIN TEST Reviewed 09/08/2016 12:00 AM Rocephin 1 gram Injection Reviewed 02/25/2012 12:00 AM IMMUNIZATION ADMIN Reviewed 02/25/2012 12:00 AM TDAP VACCINE 7 YRS/> IM Reviewed 03/23/2012 12:00 AM MAMMOGRAM SCREENING Reviewed 03/29/2012 12:00 AM Kenalog [id number] ONEYDA Reviewed 03/29/2012 12:00 AM INJ TENDON [...] FIDE IM Reviewed 01/13/2010 12:00 AM Misbah [id number] ONEYDA Reviewed 01/13/2010 12:00 AM INJ TENDON SHEATH/LIGAMENT Reviewed 04/07/2010 12:00 AM COMPLETE CBC W/AUTO DIFF WBC Reviewed 04/07/2010 12:00 AM COMPREHEN METABOLIC PANEL Reviewed 04/07/2010 12:00 AM LIPID PANEL Reviewed 04/07/2010 12:00 AM GLYCOSYLATED HEMOGLOBIN TEST Reviewed 05/21/2010 12:00 AM Misbah [id number]-[id number] ONEYDA Reviewed 05/21/2010 12:00 AM INJ TENDON [...] 11.70 g/dLHCT 35.80 %MCV 93.0 fLMCH 30.50 [facility] 32.70 g/dLRDW SD 47 RDW CV 13.90 [...] CVX Influenza 05/19/2011 sanofi pasteur PMC Fluzone [id number] Intramuscular Left Deltoid 05/19/2011 02/10/2011 141 Tdap 02/25/2012 sanofi pasteur PMC ADACEL [id number] Intramuscular Left Deltoid 02/25/2012 12/01/2006 999 Pneumococcal 05/16/2013 Cbwaj-Tuolpr-TbuihsqEfe Calderon [id number] Intramuscular Left Deltoid 05/16/2013 02/09/2013 133 History [...] 2017 3:04PM Constipation Jan 31 2017 3:04PM Payers Insurance Name Company Name Plan Name Plan Number Policy Number Policy Group Number Start Date BCBS Bcbs [facility] [id number] Wednesday, 2004 Usd 503 Usd 503 [id number] Wednesday, 2009 Medicare Part A zzzMedicare A Secondary DOES NOT HAVE MEDICARE Wednesday, 2012 History of Encounters Visit Date Visit Type Provider 01/31/2017 Office visit Hung Jaramillo MD 09/08/2016 Office visit Hung Jaramillo MD 07/28/2016 Office visit Hung Jaramillo MD 01/16/2016 Office visit Hung Jaramillo MD 04/02/2015 Office visit Hung Jaramillo MD 01/13/2015 Office visit Sunny Lebron MD 12/13/2014 Office visit Sunny Lebron MD 06/17/2014 Office visit 06/17/2014 Office visit Hung Jaramillo MD 03/26/2014 Office visit Hung Jaramillo MD 10/26/2013 Office visit Hung Jaramlilo MD 10/01/2013 Office visit Hung aJramillo MD 08/13/2013 Office visit Hung Jaramillo MD [...] 02/25/2012 Nurse visit Jeannette Mcgrath RN 01/03/2012 [facility] Albaro Pina MD 12/20/2011 Office visit [...]
--- OUTSIDE RECORDS SUMMARY | 2018-05-26 09:17 | XMS REPORT ---
Author Author Hung Jaramillo [facility] Address [address] [place], [place] [address] Care Team Providers Care Bindery Worker Name Role Phone Hung Jaramillo PCP Unavailable Allergies and Adverse Reactions Name Reaction Notes seasonal allergies Demerol SULFA (SULFONAMIDES) Plan of Treatment Planned Activity Comments Planned Date Planned Time Plan/Goal MAMMOGRAM BOTH BREASTS 01/08/2016 12:00 AM COMPLETE CBC W/AUTO DIFF WBC 01/08/2016 12:00 AM COMPREHEN METABOLIC PANEL 01/08/2016 12:00 AM LIPID PANEL 01/08/2016 12:00 AM GLYCOSYLATED HEMOGLOBIN TEST 01/08/2016 12:00 AM GLYCOSYLATED HEMOGLOBIN TEST 02/08/2013 12:00 AM COMPLETE CBC W/AUTO DIFF WBC 03/26/2014 12:00 AM COMPREHEN METABOLIC PANEL 03/26/2014 12:00 AM LIPID PANEL 03/26/2014 12:00 AM Medications Active Name Start Date Estimated Completion Date SIG Comments aspirin 81 mg oral tablet take 1 tablet by oral route daily Nasonex 50 mcg/actuation nasal spray,non-aerosol 05/16/2013 spray 2 sprays in each nostril by intranasal route once daily Jentadueto 2.5-1,000 mg oral tablet 06/12/2013 [...] 11/12/2013 TEST BLOOD SUGAR DAILY DIRECTED amlodipine 5 mg oral tablet 12/05/2013 TAKE 1 TABLET BY MOUTH EVERY [...] 1ST FOOD/BEVERAGE OR MEDICATION OF THE DAY Farxiga 10 mg oral tablet 04/02/2015 take 1 tablet (10 mg) by oral route once daily in the morning alendronate 70 mg oral tablet 06/27/2015 TAKE [...] AND 1 TABLET BY MOUTH EACH EVENING alendronate 70 mg oral tablet 10/15/2015 TAKE 1 TABLET BY MOUTH ONCE WEEKLY IN THE MORNING AT LEAST 30 MINUTES BEFORE 1ST FOOD/BEVERAGE OR MEDICATION OF THE DAY Benicar HCT 40-25 mg oral tablet 12/10/2015 TAKE 1 TABLET BY MOUTH EVERY DAY Name Start Date Expiration Date SIG [...] per day with meals for 30 days Cursogram2 miscellaneous kit 11/08/2012 11/08/2012 test BS dailyICD-9 250.00 Fosamax 70 mg oral tablet 03/06/2013 03/06/2013 take 1 tablet (70 mg) by oral route once weekly in the morning, at least 30 min before first food, beverage, or medication of day Zithromax Z-Kurt 250 mg oral tablet 05/21/2013 [...] times a day as needed Zithromax Z-Kurt 250 mg oral tablet 08/13/2013 [...] HC BMI BSA BMI Percentile O2 Sat(%) 04/02/2015 9:07:00 AM 148 mmHg 80 mmHg [...] Description Order Status 04/09/2011 12:00 AM Misbah [id number] ONEYDA Reviewed 04/09/2011 12:00 AM INJ TENDON [...] 06/14/2011 12:00 AM Decadron Inj. per 1mg-[facility] [id number] Reviewed 06/14/2011 12:00 AM Depo-Medrol 80 Mg [facility] [id number] Reviewed 08/05/2011 12:00 AM DRAIN/INJ JOINT/BURSA W/O US Reviewed 08/05/2011 12:00 AM Kenalog 40 Mg Im-Nd#[id number] Reviewed 11/04/2011 12:00 AM DRAIN/INJ JOINT/BURSA W/O US Reviewed 11/04/2011 12:00 AM Kenalog 40 Mg Im-Ndc#[id number] Reviewed 09/18/2009 12:00 AM COMPLETE CBC W/AUTO DIFF WBC Reviewed 09/18/2009 12:00 AM COMPREHEN METABOLIC PANEL Reviewed 09/18/2009 12:00 AM LIPID PANEL Reviewed 09/18/2009 12:00 AM GLYCOSYLATED HEMOGLOBIN TEST Reviewed 02/25/2012 12:00 AM IMMUNIZATION ADMIN Reviewed 02/25/2012 12:00 AM TDAP VACCINE 7 YRS/> IM Reviewed 03/23/2012 12:00 AM MAMMOGRAM SCREENING Returned 03/29/2012 12:00 AM Kenalog Pu-[id number] ONEYDA Reviewed 03/29/2012 12:00 AM INJ TENDON [...] FIDE IM Reviewed 01/13/2010 12:00 AM Kenalog Ee-[id number] ONEYDA Reviewed 01/13/2010 12:00 AM INJ TENDON SHEATH/LIGAMENT Reviewed 04/07/2010 12:00 AM COMPLETE CBC W/AUTO DIFF WBC Reviewed 04/07/2010 12:00 AM COMPREHEN METABOLIC PANEL Reviewed 04/07/2010 12:00 AM LIPID PANEL Reviewed 04/07/2010 12:00 AM GLYCOSYLATED HEMOGLOBIN TEST Reviewed 05/21/2010 12:00 AM Misbah Dl-[id number] ONEYDA Reviewed 05/21/2010 12:00 AM INJ TENDON [...] 12:00 AM X-RAY EXAM OF KNEE 3 Returned 01/07/2015 12:00 AM COMPLETE CBC W/AUTO DIFF [...] 42.0 mg/dLLDL (CALC) 149.0 mg/dLHGB A1C 6.80 %Est Avg [...] #EOS 0.15 #BASO 0.03 HGB A1C 8.60 %Est Avg Glucose 200.1 [...] mg/dLCALCIUM 10.10 mg/dLeGFR 55 TSH 2.320 uIU/mL 01/21/2015 8:26 AM TRIGLYCERIDES 140.0 mg/dLCHOLESTEROL 183.0 mg/dLHDL 33.0 mg/ dLLDL (CALC) 122.0 mg/dLGLUCOSE 154.0 mg/dLSODIUM 141.0 mmol/LPOTASSIUM 4.50 mmol/LCHLORIDE 106.0 mmol/LCO2 24.0 mmol/LBUN 33.0 mg/dLCREATININE 1.0 mg/dLSGOT /AST 14.0 IU/LSGPT/ALT 7.0 IU/LALK PHOS 67.0 IU/LTOTAL PROTEIN 6.90 g/dLALBUMIN 4.0 g/dLTOTAL BILI 0.60 mg/dLCALCIUM 9.80 mg/dLeGFR 55 WBC 6.9 RBC 3.80 HGB 11.90 g/dLHCT 36.10 %MCV 95.0 fLMCH 31.30 pgMCHC 33.0 g/dLRDW CV 13.90 %MPV 9.80 fLPLT 376 %NEUT 61.10 %%LYMP 27.90 %%MONO 7.70 %%EOS 2.90 %%BASO 0.40 %# NEUT 4.19 #LYMP 1.92 #MONO 0.53 #EOS 0.20 #BASO 0.03 Hemoglobin A1c 8.0 %Estim. Avg Glu (eAG) 183 mg/dL History Of Immunizations Name Date Admin Mfg Name Mfg Code Trade Name Lot# Route Inj Vis Given Vis Pub CVX Influenza 05/19/2011 sanofi pasteur PMC Fluzone [id number] Intramuscular Left Deltoid 05/19/2011 02/10/2011 141 Tdap 02/25/2012 [facility] ADACEL [id number] Intramuscular Left Deltoid 02/25/2012 12/01/2006 999 PCV 05/16/2013 Alycia FERNANDA Calderon [id number] Intramuscular Left Deltoid 05/16/2013 02/09/2013 133 History [...] 2016 2:38PM Hyperlipidemia Jan 08 2016 2:38PM Payers Insurance Name Company Name Plan Name Plan Number Policy Number Policy Group Number Start Date BCBS [employer]bs [employer] [place] [id number] Wednesday, 2004 Usd 503 Usd 503 [id number] Wednesday, 2009 Medicare Part A zzzMedicare A Secondary DOES NOT HAVE MEDICARE Wednesday, 2012 History of Encounters Visit Date Visit Type Provider 04/02/2015 Office visit Hung Jaramillo MD 01/13/2015 Office visit Sunny Lebron MD 12/13/2014 Office visit Sunny Lebron MD 06/17/2014 Office visit 06/17/2014 Office visit uHng Jaramillo MD 03/26/2014 Office visit Hung Jaramillo MD 10/26/2013 Office visit Hung Jaramillo MD 10/01/2013 Office visit Hung Jaramillo MD 08/13/2013 Office visit Hung Jaramillo MD 05/16/2013 Office visit Hung Jaramillo MD 01/16/2013 Office visit Anil Argueta MD 11/14/2012 Office visit Hung Jaramillo MD 10/09/2012 Office visit Hung Jaramillo MD 10/04/2012 Office visit Shiva Haywood MD 10/04/2012 [facility] Shiva Haywood MD 10/02/2012 Office visit [...]
[2018-05-26] MEDS: PHENYLEPHRINE 10% OPHTH (NEO-SYN) 5 ML BTL OU SCH ×3 (09:19→09:32)
[2018-05-26] MEDS: CYCLOPENTOLATE 1% (CYCLOGYL) 2 ML DROPS OP SCH ×3 (09:19→09:32)
--- OUTSIDE RECORDS SUMMARY | 2018-05-26 09:19 | XMS REPORT ---
Author Author Hung Jaramillo [facility] Address [address] [place], [place] [address] Care Team Providers Care Last Picker Name Role Phone Hung Jaramillo PCP Unavailable [...] 1ST FOOD/BEVERAGE OR MEDICATION OF THE DAY amoxicillin 875 mg oral tablet 04/02/2015 04/16/2015 take 1 tablet (875 mg) by oral route every 12 hours for 14 days Farxiga 10 mg oral tablet 04/02/2015 take 1 tablet (10 mg) by oral route once daily in the morning Name Start Date Expiration Date SIG Comments [...] per day with meals for 30 days Imperva2 miscellaneous kit 11/08/2012 11/08/2012 test BS dailyICD-9 [...] pain Active Vital Signs Date Time BP-Sys(mm[Hg] BP-Aprk(mm[Hg]) HR(bpm) RR(rpm) Temp WT HT HC BMI [...] alcohol Denies illicit substance abuse 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 per 1mg-[facility] [id number] Reviewed 06/14/2011 12:00 AM Depo-Medrol [address] [facility] [id number] Reviewed 08/05/2011 12:00 AM DRAIN/INJ JOINT/BURSA W/O US Reviewed 08/05/2011 12:00 AM Kenalog 40 Mg Im-[facility]#[id number] Reviewed 11/04/2011 12:00 AM DRAIN/INJ JOINT/BURSA W/O US Reviewed 11/04/2011 12:00 AM Kenalog 40 Mg Im-[facility]#5569-9695-09 Reviewed 09/18/2009 12:00 AM COMPLETE CBC W/AUTO DIFF WBC Reviewed 09/18/2009 12:00 AM COMPREHEN METABOLIC PANEL Reviewed 09/18/2009 12:00 AM LIPID PANEL Reviewed 09/18/2009 12:00 AM GLYCOSYLATED HEMOGLOBIN TEST Reviewed 02/25/2012 12:00 AM IMMUNIZATION ADMIN Reviewed 02/25/2012 12:00 AM TDAP VACCINE 7 YRS/> IM Reviewed 03/23/2012 12:00 AM MAMMOGRAM SCREENING Returned 03/29/2012 12:00 AM Thanhanastasia [id number] ONEYDA Reviewed 03/29/2012 12:00 AM INJ TENDON [...] FIDE IM Reviewed 01/13/2010 12:00 AM Misbah [id number]-[id number] ONEYDA Reviewed 01/13/2010 12:00 AM INJ TENDON SHEATH/LIGAMENT Reviewed 04/07/2010 12:00 AM COMPLETE CBC W/AUTO DIFF WBC Reviewed 04/07/2010 12:00 AM COMPREHEN METABOLIC PANEL Reviewed 04/07/2010 12:00 AM LIPID PANEL Reviewed 04/07/2010 12:00 AM GLYCOSYLATED HEMOGLOBIN TEST Reviewed 05/21/2010 12:00 AM Misbah Wh-[id number] ONEYDA Reviewed 05/21/2010 12:00 AM INJ TENDON [...] CVX Influenza 05/19/2011 sanofi pasteur PMC Fluzone [id number] Intramuscular Left Deltoid 05/19/2011 02/10/2011 141 Tdap 02/25/2012 sanofi pasteur [facility] ADACEL [id number] Intramuscular Left Deltoid 02/25/2012 12/01/2006 999 PCV 05/16/2013 Gaxwo-Okykke-WwgtnlhEfe [facility] Prevnar [id number] Intramuscular Left Deltoid 05/16/2013 02/09/2013 133 History [...] Otitis Media, Acute Apr 02 2015 9:18AM Payers Insurance Name Company Name Plan Name Plan Number Policy Number Policy Group Number Start Date [facility] [id number] Wednesday, 2004 Usd 503 Usd 503 [id number] Wednesday, 2009 Medicare Part A Medicare A Secondary [id number] Tuesday, 2012 History of Encounters Visit Date Visit [...] 02/25/2012 Nurse visit Jeannette Bowles RN 01/03/2012 [facility] [...]
--- OUTSIDE RECORDS SUMMARY | 2018-05-26 09:20 | XMS REPORT ---
Author Author Hung Jaramillo [facility] Address [address] [place], [place] [address] Care Team Providers Care Blender Laborer Name Role Phone Hung Jaramillo PCP Unavailable [...] 01/16/2016 test blood sugar daily. ICD-10 E11.9 Fosamax 70 mg oral tablet 02/05/2016 take 1 tablet (70 mg) by oral route once weekly in the morning, at least 30 min before first food, beverage, or medication of day alendronate 70 mg oral tablet 02/06/2016 TAKE [...] TAKE 1 TABLET BY MOUTH EVERY DAY Tamiflu 75 mg oral capsule 07/28/2016 08/07/2016 take 1 capsule (75 mg) by oral route once daily for 10 days amoxicillin 875 mg oral tablet 07/28/2016 08/11/2016 take 1 tablet (875 mg) by oral route every 12 hours for 14 days Name Start Date Expiration Date SIG [...] per day with meals for 30 days Onevest2 miscellaneous kit 11/08/2012 11/08/2012 test BS dailyICD-9 [...] meal of the day for 30 days Discontinued Name Start Date Discontinued Date [...] HC BMI BSA BMI Percentile O2 Sat(%) 07/28/2016 11:10:00 AM 128 mmHg 74 mmHg [...] alcohol Denies illicit substance abuse 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 per 1mg-[facility] [id number] Reviewed 06/14/2011 12:00 AM Depo-Medrol [address] [facility] [id number] Reviewed 01/08/2016 12:00 AM MAMMOGRAM BOTH BREASTS Reviewed 01/08/2016 12:00 AM COMPLETE CBC W/AUTO DIFF WBC Returned 01/08/2016 12:00 AM COMPREHEN METABOLIC PANEL Returned 01/08/2016 12:00 AM LIPID PANEL Returned 01/08/2016 12:00 AM GLYCOSYLATED HEMOGLOBIN TEST Returned 08/05/2011 12:00 AM DRAIN/INJ JOINT/BURSA W/O US Reviewed 08/05/2011 12:00 AM Kenalog 40 Mg Im-Nd#[id number] Reviewed 11/04/2011 12:00 AM DRAIN/INJ JOINT/BURSA W/O US Reviewed 11/04/2011 12:00 AM Kenalog 40 Mg Im-Ndc#1708-1059-79 Reviewed 09/18/2009 12:00 AM COMPLETE CBC W/AUTO DIFF WBC Reviewed 09/18/2009 12:00 AM COMPREHEN METABOLIC PANEL Reviewed 09/18/2009 12:00 AM LIPID PANEL Reviewed 09/18/2009 12:00 AM GLYCOSYLATED HEMOGLOBIN TEST Reviewed 02/25/2012 12:00 AM IMMUNIZATION ADMIN Reviewed 02/25/2012 12:00 AM TDAP VACCINE 7 YRS/> IM Reviewed 03/23/2012 12:00 AM MAMMOGRAM SCREENING Reviewed 03/29/2012 12:00 AM Misbah MilesRl-[address]-20 ONEYDA Reviewed 03/29/2012 12:00 AM INJ TENDON [...] FIDE IM Reviewed 01/13/2010 12:00 AM Misbah Ap-[id number] ONEYDA Reviewed 01/13/2010 12:00 AM INJ TENDON SHEATH/LIGAMENT Reviewed 04/07/2010 12:00 AM COMPLETE CBC W/AUTO DIFF WBC Reviewed 04/07/2010 12:00 AM COMPREHEN METABOLIC PANEL Reviewed 04/07/2010 12:00 AM LIPID PANEL Reviewed 04/07/2010 12:00 AM GLYCOSYLATED HEMOGLOBIN TEST Reviewed 05/21/2010 12:00 AM Misbah MilesLy-[address]-20 ONEYDA Reviewed 05/21/2010 12:00 AM INJ TENDON [...] CVX Influenza 05/19/2011 sanofi pasteur PMC Fluzone [id number] Intramuscular Left Deltoid 05/19/2011 02/10/2011 141 Tdap 02/25/2012 sanofi pasteur PMC ADACEL [id number] Intramuscular Left Deltoid 02/25/2012 12/01/2006 999 Pneumococcal 05/16/2013 Alycia FERNANDA Calderon [id number] Intramuscular Left Deltoid 05/16/2013 02/09/2013 133 History [...] 2016 9:34AM Sinusitis Jul 28 2016 11:18AM Payers Insurance Name Company Name Plan Name Plan Number Policy Number Policy Group Number Start Date BCBS [employer]bs [employer] [place] [id number] Wednesday, 2004 Usd 503 Usd 503 [id number] Wednesday, 2009 Medicare Part A zzzMedicare A Secondary DOES NOT HAVE MEDICARE Wednesday, 2012 History of Encounters Visit Date Visit Type Provider 07/28/2016 Office visit Hung Jaramillo MD 01/16/2016 [...]
--- OUTSIDE RECORDS SUMMARY | 2018-05-26 09:22 | XMS REPORT ---
Author Author Hung Jaramillo [facility] Address [address] [place], [place] [address] Care Team Providers Care Head Control Clerk Name Role Phone Hung Jaramillo PCP Unavailable Hung Jaramillo PreferredProvider Unavailable Allergies and Adverse Reactions Name Reaction Notes seasonal allergies Demerol SULFA (SULFONAMIDES) Plan of Treatment Planned Activity Comments Planned Date Planned Time Plan/Goal BMP 02/07/2017 12:00 AM Hemoglobin A1c 02/08/2013 12:00 AM [...] per day with meals for 30 days RAZ Mobile2 miscellaneous kit 11/08/2012 11/08/2012 test BS dailyICD-9 [...] alcohol Denies illicit substance abuse 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 per 1mg-[facility] [id number] Reviewed 06/14/2011 12:00 AM Depo-Medrol 80 Mg [facility] [id number] Reviewed 01/08/2016 12:00 AM MAMMOGRAM BOTH BREASTS Reviewed 01/08/2016 12:00 AM COMPLETE CBC W/AUTO DIFF WBC Reviewed 01/08/2016 12:00 AM COMPREHEN METABOLIC PANEL Reviewed 01/08/2016 12:00 AM LIPID PANEL Reviewed 01/08/2016 12:00 AM GLYCOSYLATED HEMOGLOBIN TEST Reviewed 08/05/2011 12:00 AM DRAIN/INJ JOINT/BURSA W/O US Reviewed 08/05/2011 12:00 AM Kenalog 40 Mg Im-[facility]#7875-7920-79 Reviewed 11/04/2011 12:00 AM DRAIN/INJ JOINT/BURSA W/O US Reviewed 11/04/2011 12:00 AM Kenalog 40 Mg Im-[facility]#7903-3407-43 Reviewed 09/18/2009 12:00 AM COMPLETE CBC W/AUTO [...] Returned 01/31/2017 12:00 AM VITAMIN B-12 Returned 03/23/2012 12:00 AM MAMMOGRAM SCREENING Reviewed 03/29/2012 12:00 AM Kenalog [id number] ONEYDA Reviewed 03/29/2012 12:00 AM INJ TENDON [...] FIDE IM Reviewed 01/13/2010 12:00 AM Misbah Jh-[id number] ONEYDA Reviewed 01/13/2010 12:00 AM INJ TENDON SHEATH/LIGAMENT Reviewed 04/07/2010 12:00 AM COMPLETE CBC W/AUTO DIFF WBC Reviewed 04/07/2010 12:00 AM COMPREHEN METABOLIC PANEL Reviewed 04/07/2010 12:00 AM LIPID PANEL Reviewed 04/07/2010 12:00 AM GLYCOSYLATED HEMOGLOBIN TEST Reviewed 05/21/2010 12:00 AM Misbah Cp-[id number] ONEYDA Reviewed 05/21/2010 12:00 AM INJ TENDON [...] A1C 9.0 %Est Avg Glucose 211.6 mg/dL History Of Immunizations Name Date Admin Mfg Name Mfg Code Trade Name Lot# Route Inj Vis Given Vis Pub CVX Influenza 05/19/2011 sanofi pasteur PMC Fluzone [id number] Intramuscular Left Deltoid 05/19/2011 02/10/2011 141 Tdap 02/25/2012 sanofi pasteur PMC ADACEL [id number] Intramuscular Left Deltoid 02/25/2012 12/01/2006 999 Pneumococcal 05/16/2013 [facility] Janesvilleginger [facility] Prevnar [id number] Intramuscular Left Deltoid 05/16/2013 02/09/2013 133 History [...] 2017 3:04PM Hyponatremia Feb 07 2017 1:56PM Payers Insurance Name Company Name Plan Name Plan Number Policy Number Policy Group Number Start Date BCBS [employer]bs [employer] [place] [id number] Wednesday, 2004 Usd 503 Usd 503 [id number] Wednesday, 2009 Medicare Part A zzzMedicare A [...] 10/04/2012 Office visit Shiva Haywood MD 10/04/2012 [facility] Shiva Haywood MD 10/02/2012 Office visit Shiva Haywood MD 09/13/2012 [facility] Candida Stuart MD 06/28/2012 Office visit [...]
[2018-05-26 09:24] VITALS: BP 143/76
--- OUTSIDE RECORDS SUMMARY | 2018-05-26 09:24 | XMS REPORT ---
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 per 1mg-[facility] [id number]-Echiyvpio Reviewed 06/14/2011 12:00 AM Depo-Medrol 80 Mg [facility] [id number] Reviewed 01/08/2016 12:00 AM MAMMOGRAM BOTH BREASTS Reviewed 01/08/2016 12:00 AM COMPLETE CBC W/AUTO DIFF WBC Reviewed 01/08/2016 12:00 AM COMPREHEN METABOLIC PANEL Reviewed 01/08/2016 12:00 AM LIPID PANEL Reviewed 01/08/2016 12:00 AM GLYCOSYLATED HEMOGLOBIN TEST Reviewed 08/05/2011 12:00 AM DRAIN/INJ JOINT/BURSA W/O US Reviewed 08/05/2011 12:00 AM Kenalog 40 Mg Im-[facility]#[id number] Reviewed 11/04/2011 12:00 AM DRAIN/INJ JOINT/BURSA W/O US Reviewed 11/04/2011 12:00 AM Kenalog 40 Mg Im-[facility]#9849-3849-95 Reviewed 09/18/2009 12:00 AM COMPLETE CBC W/AUTO [...] MAMMOGRAM SCREENING Reviewed 03/29/2012 12:00 AM Misbah MilesPe-[address]-20 ONEYDA Reviewed 03/29/2012 12:00 AM INJ TENDON [...] FIDE IM Reviewed 01/13/2010 12:00 AM Misbah MilesPu-[id number] ONEYDA Reviewed 01/13/2010 12:00 AM INJ TENDON SHEATH/LIGAMENT Reviewed 04/07/2010 12:00 AM COMPLETE CBC W/AUTO DIFF WBC Reviewed 04/07/2010 12:00 AM COMPREHEN METABOLIC PANEL Reviewed 04/07/2010 12:00 AM LIPID PANEL Reviewed 04/07/2010 12:00 AM GLYCOSYLATED HEMOGLOBIN TEST Reviewed 05/21/2010 12:00 AM Misbah MilesXd-[address]-20 ONEYDA Reviewed 05/21/2010 12:00 AM INJ TENDON [...] CVX Influenza 05/19/2011 sanofi pasteur PMC Fluzone [id number] Intramuscular Left Deltoid 05/19/2011 02/10/2011 141 Tdap 02/25/2012 sanofi pasteur PMC ADACEL [id number] Intramuscular Left Deltoid 02/25/2012 12/01/2006 999 Pneumococcal 05/16/2013 Lyggx-Mxbcxu-NovkwwgPraginger WAL Prevnar [id number] Intramuscular Left Deltoid 05/16/2013 02/09/2013 133 History [...] 2017 3:12PM Hyponatremia Feb 09 2017 8:03AM Payers Insurance Name Company Name Plan Name Plan Number Policy Number Policy Group Number Start Date BCBS [facility] [id number] Wednesday, 2004 Usd 503 Usd 503 [id number] Wednesday, 2009 Medicare Part A zzzMedicare A Secondary DOES NOT HAVE MEDICARE Wednesday, 2012 History of Encounters Visit Date Visit Type Provider 02/08/2017 Office visit Hung Jaramillo MD 01/31/2017 Office visit Hung Jaramillo MD 09/08/2016 Office visit Hung Jaramillo MD 07/28/2016 Office visit Hung Jaarmillo MD 01/16/2016 Office visit Hung Jaramillo MD [...] 10/04/2012 Office visit Shiva Haywood MD 10/04/2012 [facility] Shiva Haywood MD 10/02/2012 Office visit Shiva Haywood MD 09/13/2012 [facility] Candida Stuart MD 06/28/2012 Office visit Hung Jaramillo MD 05/09/2012 Office visit Hung Jaramillo MD 04/28/2012 Office visit Anil Argueta MD 04/18/2012 Office visit Hung Jaramillo MD 03/29/2012 Office visit Anil Argueta MD 02/25/2012 Nurse visit Jeannette Mcgrath RN 01/03/2012 [facility] Albaro Pina MD 12/20/2011 Office [...]
--- OUTSIDE RECORDS SUMMARY | 2018-05-26 09:26 | XMS REPORT ---
Author Author Hung Jaramillo [facility] Address [address] [place], [place] [id number] Care Team Providers Care Health Manager Name Role Phone Hung Jaramillo PCP Unavailable Allergies and Adverse Reactions Name Reaction Notes seasonal allergies Demerol SULFA (SULFONAMIDES) Plan of Treatment Planned Activity Comments Planned Date Planned Time Plan/Goal MAMMOGRAM BOTH BREASTS 01/08/2016 12:00 AM GLYCOSYLATED HEMOGLOBIN TEST 02/08/2013 [...] per day with meals for 30 days [employer] miscellaneous kit 11/08/2012 11/08/2012 test BS dailyICD-9 [...] Description Order Status 04/09/2011 12:00 AM Kenanastasia [id number] ONEYDA Reviewed 04/09/2011 12:00 AM INJ TENDON [...] Reviewed 06/14/2011 12:00 AM Decadron Inj. per 1mg-[facility] [id number]-Xtgvyqscb Reviewed 06/14/2011 12:00 AM Depo-Medrol 80 Mg [facility] [id number]-Entgaiyyz Reviewed 08/05/2011 12:00 AM DRAIN/INJ JOINT/BURSA W/O US Reviewed 08/05/2011 12:00 AM Kenalog 40 Mg Im-[facility]#2575-6274-39 Reviewed 11/04/2011 12:00 AM DRAIN/INJ JOINT/BURSA W/O US Reviewed 11/04/2011 12:00 AM Kenalog 40 Mg Im-[facility]#7333-7166-88 Reviewed 09/18/2009 12:00 AM COMPLETE CBC W/AUTO DIFF WBC Reviewed 09/18/2009 12:00 AM COMPREHEN METABOLIC PANEL Reviewed 09/18/2009 12:00 AM LIPID PANEL Reviewed 09/18/2009 12:00 AM GLYCOSYLATED HEMOGLOBIN TEST Reviewed 02/25/2012 12:00 AM IMMUNIZATION ADMIN Reviewed 02/25/2012 12:00 AM TDAP VACCINE 7 YRS/> IM Reviewed 03/23/2012 12:00 AM MAMMOGRAM SCREENING Returned 03/29/2012 12:00 AM Kenanastasia Fx-[id number] ONEYDA Reviewed 03/29/2012 12:00 AM INJ TENDON [...] FIDE IM Reviewed 01/13/2010 12:00 AM Kenalog Mw-[id number] ONEYDA Reviewed 01/13/2010 12:00 AM INJ TENDON SHEATH/LIGAMENT Reviewed 04/07/2010 12:00 AM COMPLETE CBC W/AUTO DIFF WBC Reviewed 04/07/2010 12:00 AM COMPREHEN METABOLIC PANEL Reviewed 04/07/2010 12:00 AM LIPID PANEL Reviewed 04/07/2010 12:00 AM GLYCOSYLATED HEMOGLOBIN TEST Reviewed 05/21/2010 12:00 AM Misbah Zv-[id number] ONEYDA Reviewed 05/21/2010 12:00 AM INJ TENDON [...] CVX Influenza 05/19/2011 sanofi pasteur PMC Fluzone [id number] Intramuscular Left Deltoid 05/19/2011 02/10/2011 141 Tdap 02/25/2012 sanofi pasteur PMC ADACEL [id number] Intramuscular Left Deltoid 02/25/2012 12/01/2006 999 PCV 05/16/2013 Zvubm-Aysyuc-JirvaxgDipak FERNANDA Calderon [id number] Intramuscular Left Deltoid 05/16/2013 02/09/2013 133 History [...] for breast cancer Jan 08 2016 2:34PM Payers Insurance Name Company Name Plan Name Plan Number Policy Number Policy Group Number Start Date BCBS [employer] [place] [id number] Wednesday, 2004 Usd 503 Usd 503 [id number] Wednesday, 2009 Medicare Part A zzzMedicare A [...] visit Hung Jaramillo MD 10/04/2012 Office visit Shiav Haywood MD 10/04/2012 [facility] Shiva Haywood MD 10/02/2012 Office visit Shiva Haywood MD 09/13/2012 [facility] Candida Stuart MD 06/28/2012 Office visit Hung [...]
--- OUTSIDE RECORDS SUMMARY | 2018-05-26 09:28 | XMS REPORT ---
Author Author Hung Jaramillo [facility] Address [address] [place], [place] [address] Care Team Providers Care Assembly Line Inspector Name Role Phone Hung Jaramillo PCP Unavailable Hung Jaramillo PreferredProvider Unavailable Allergies and Adverse Reactions Name Reaction Notes seasonal allergies Demerol SULFA (SULFONAMIDES) Plan of Treatment Planned Activity Comments Planned Date Planned Time Plan/Goal BMP 02/16/2017 12:00 AM Hemoglobin A1c 02/08/2013 12:00 AM [...] per day with meals for 30 days [employer] miscellaneous kit 11/08/2012 11/08/2012 test BS dailyICD-9 [...] alcohol Denies illicit substance abuse 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 per 1mg-[facility] [id number]-Kuwztzmzz Reviewed 06/14/2011 12:00 AM Depo-Medrol 80 Mg [facility] [id number]-Jzbtczudo Reviewed 01/08/2016 12:00 AM MAMMOGRAM BOTH BREASTS Reviewed 01/08/2016 12:00 AM COMPLETE CBC W/AUTO DIFF WBC Reviewed 01/08/2016 12:00 AM COMPREHEN METABOLIC PANEL Reviewed 01/08/2016 12:00 AM LIPID PANEL Reviewed 01/08/2016 12:00 AM GLYCOSYLATED HEMOGLOBIN TEST Reviewed 08/05/2011 12:00 AM DRAIN/INJ JOINT/BURSA W/O US Reviewed 08/05/2011 12:00 AM Kenalog 40 Mg Im-[facility]#8089-5426-26 Reviewed 11/04/2011 12:00 AM DRAIN/INJ JOINT/BURSA W/O US Reviewed 11/04/2011 12:00 AM Kenalog 40 Mg Im-[facility]#9575-8586-17 Reviewed 09/18/2009 12:00 AM COMPLETE CBC W/AUTO [...] MAMMOGRAM SCREENING Reviewed 03/29/2012 12:00 AM Kenalog Qq-[id number] ONEYDA Reviewed 03/29/2012 12:00 AM INJ TENDON [...] FIDE IM Reviewed 01/13/2010 12:00 AM Misbah Wu-[address]-20 ONEYDA Reviewed 01/13/2010 12:00 AM INJ TENDON SHEATH/LIGAMENT Reviewed 04/07/2010 12:00 AM COMPLETE CBC W/AUTO DIFF WBC Reviewed 04/07/2010 12:00 AM COMPREHEN METABOLIC PANEL Reviewed 04/07/2010 12:00 AM LIPID PANEL Reviewed 04/07/2010 12:00 AM GLYCOSYLATED HEMOGLOBIN TEST Reviewed 05/21/2010 12:00 AM Misbah Tg-[address]-20 ONEYDA Reviewed 05/21/2010 12:00 AM INJ TENDON [...] 13.0 g/dLHCT 39.0 %MCV 94.0 fLH 31.30 pgHC 33.30 g/dLRDW SD 44 RDW CV 13.0 [...] HGB 12.60 g /dLHCT 36.70 %MCV 91.0 [facility] 31.30 pgHC 34.30 g/dLRDW SD 41 RDW CV 12.50 [...] AA 59 eGFR 49 eGFR AA* 59 02/14/2017 5:55 PM GLUCOSE 154.0 mg/dLSODIUM 129.0 mmol/LPOTASSIUM 4.10 mmol/ LCHLORIDE 96.0 mmol/LCO2 23.0 mmol/LBUN 22.0 mg/dLCREATININE 0.80 mg/dLCALCIUM 9.80 mg/dLAGE 71 GFR NonAA 71 GFR AA 86 eGFR >60 mL/min/1.73meGFR AA* >60 History Of Immunizations Name Date Admin Mfg Name Mfg Code Trade Name Lot# Route Inj Vis Given Vis Pub CVX Influenza 05/19/2011 sanofi pasteur PMC Fluzone [id number] Intramuscular Left Deltoid 05/19/2011 02/10/2011 141 Tdap 02/25/2012 sanofi pasteur PMC ADACEL [id number] Intramuscular Left Deltoid 02/25/2012 12/01/2006 999 Pneumococcal 05/16/2013 Zybnf-Yioddg-HkltjhdPraginger WAL Prevnar [id number] Intramuscular Left Deltoid 05/16/2013 02/09/2013 133 History [...] 2017 5:11PM Hyponatremia Feb 16 2017 9:11AM Payers Insurance Name Company Name Plan Name Plan Number Policy Number Policy Group Number Start Date BCBS Bcbs [facility] [id number] Wednesday, 2004 Usd 503 Usd 503 [id number] Wednesday, 2009 Medicare Part A zzzMedicare A [...] 10/02/2012 Office visit Shiva Haywood MD 09/13/2012 [facility] Candida Stuart MD 06/28/2012 Office [...]
--- OUTSIDE RECORDS SUMMARY | 2018-05-26 09:29 | XMS REPORT ---
Author Author Hung Jaramillo [facility] Address [address] [place], [place] [address] Care Team Providers Care Shackler Name Role Phone Hung Jaramillo PCP Unavailable Allergies and Adverse Reactions Name Reaction Notes seasonal allergies Demerol SULFA (SULFONAMIDES) Plan of Treatment Planned Activity Comments Planned Date Planned Time Plan/Goal GLYCOSYLATED HEMOGLOBIN TEST 02/08/2013 12:00 AM COMPLETE CBC W/AUTO DIFF WBC 03/26/2014 12:00 AM COMPREHEN METABOLIC PANEL 03/26/2014 12:00 AM LIPID PANEL 03/26/2014 12:00 AM X-RAY EXAM OF KNEE 3 12/13/2014 12:00 AM Medications Active Name Start Date Estimated Completion Date SIG Comments Aspirin Oral Tablet 81 mg take 1 tablet by oral route daily Nasonex Nasal [place], Non-Aerosol 50 mcg/actuation 05/16/2013 spray 2 sprays [...] route once daily for 4 days Zithromax Z-Ukrt oral tablet 250 mg 08/15/2014 take 2 [...] alcohol Denies illicit substance abuse 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 Tobacco Never smoker [...] CVX Influenza 05/19/2011 sanofi pasteur PMC Fluzone [id number] Intramuscular Left Deltoid 05/19/2011 02/10/2011 141 Tdap 02/25/2012 sanofi pasteur PMC ADACEL [id number] Intramuscular Left Deltoid 02/25/2012 12/01/2006 999 PCV 05/16/2013 Ufxzf-Ksbwcm-Eyxzjjd-Praxis WAL Kvng [id number] Intramuscular Left Deltoid 05/16/2013 02/09/2013 133 History [...] Pes anserine bursitis Dec 13 2014 8:41AM Payers Insurance Name Company Name Plan Name Plan Number Policy Number Policy Group Number Start Date Bcbs [employer] [place] [id number] Wednesday, 2004 Medicare Part A Medicare A Secondary [id number] Tuesday, 2012 Usd 503 Usd 503 [id number] Wednesday, 2009 History of Encounters Visit Date [...] 10/02/2012 Office visit Shiva Haywood MD 09/13/2012 [facility] Candida Stuart MD 06/28/2012 Office visit Hung Jaramillo MD 05/09/2012 Office visit Hung Jaramillo MD 04/28/2012 Office visit Anil Argueta MD 04/18/2012 Office visit Hung Jaramillo MD 03/29/2012 Office visit Anil Argueta MD 02/25/2012 Nurse visit Jeannette Bowles RN 01/03/2012 [facility] Albaro Pina MD 12/20/2011 Office visit Anil Argueta MD 11/04/2011 Office visit Anil Argueta MD 08/05/2011 Office visit nAil Argueta MD 06/14/2011 Office visit Hung Jaramillo [...]
--- OUTSIDE RECORDS SUMMARY | 2018-05-26 09:34 | XMS REPORT ---
Author Author Hung Jaramillo [facility] Address [address] [place], [place] [id number] Care Team Providers Care Rehabilitation Program Manager Name Role Phone Hung Jaramillo PCP Unavailable Allergies and Adverse Reactions Name Reaction Notes seasonal allergies Demerol SULFA (SULFONAMIDES) Plan of Treatment Planned Activity Comments Planned Date Planned Time Plan/Goal GLYCOSYLATED HEMOGLOBIN TEST 02/08/2013 12:00 AM COMPLETE CBC W/AUTO DIFF WBC 03/26/2014 12:00 AM COMPREHEN METABOLIC PANEL 03/26/2014 12:00 AM LIPID PANEL 03/26/2014 12:00 AM COMPLETE CBC W/AUTO DIFF WBC 01/07/2015 12:00 AM COMPREHEN METABOLIC PANEL 01/07/2015 12:00 AM LIPID PANEL 01/07/2015 12:00 AM GLYCOSYLATED HEMOGLOBIN TEST 01/07/2015 12:00 AM MAMMOGRAM SCREENING 01/07/2015 12:00 AM Medications Active Name Start Date Estimated Completion Date SIG Comments Aspirin Oral Tablet 81 mg take 1 tablet by oral route daily Nasonex Nasal [place], Non-Aerosol 50 mcg/actuation 05/16/2013 spray 2 sprays [...] HC BMI BSA BMI Percentile O2 Sat(%) 01/13/2015 8:33:00 AM 126 mmHg 64 mmHg 71 bpm 18 rpm 98.2 F 156 lbs 63 in 27.63 kg/m2 1.77 m2 12/13/2014 8:33:00 AM 126 mmHg 76 [...] alcohol Denies illicit substance abuse 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 smoker [...] AM X-RAY EXAM OF KNEE 3 Returned Results Summary Data and Description Results 04/14/2010 [...] CVX Influenza 05/19/2011 sanofi pasteur PMC Fluzone [id number] Intramuscular Left Deltoid 05/19/2011 02/10/2011 141 Tdap 02/25/2012 sanofi pasteur PMC ADACEL [id number] Intramuscular Left Deltoid 02/25/2012 12/01/2006 999 PCV 05/16/2013 Uxozs-Mpaxod-ShfrqriDipak Calderon [id number] Intramuscular Left Deltoid 05/16/2013 02/09/2013 133 History [...] Pes anserine bursitis Jan 13 2015 8:36AM Payers Insurance Name Company Name Plan Name Plan Number Policy Number Policy Group Number [id number] Wednesday, 2004 Medicare Part A Medicare A Secondary [id number] Tuesday, 2012 Usd 503 Usd 503 [id number] Wednesday, 2009 History of Encounters Visit Date Visit Type Provider 01/13/2015 Office visit Sunny Lebron MD 12/13/2014 [...] 10/04/2012 Office visit Shiva Haywood MD 10/04/2012 [facility] Shiva Haywood MD 10/02/2012 Office visit Shiva Haywood MD 09/13/2012 [facility] Candida Stuart MD 06/28/2012 Office visit Hung Jaramillo MD 05/09/2012 Office visit Hung Jaramillo MD 04/28/2012 Office visit Anil Argueta MD 04/18/2012 Office visit Hung Jaramillo MD 03/29/2012 Office visit Anil Argueta MD 02/25/2012 Nurse visit Jeannette Bowles RN 01/03/2012 [facility] Albaro Pina MD 12/20/2011 Office [...]
--- NOTE | 2018-05-26 09:38 | Ophthalmologist Pre-Op Note ---
Pre-Operative Progress Note H&P Reviewed The H&P was reviewed, patient examined and no changes noted. Date H&P Reviewed: May 26, 2018 Time H&P Reviewed: 09:38 Pre-Op Dx Cataract, Left Eye SUNSHINE NINO MD May 26, 2018 09:38
--- OUTSIDE RECORDS SUMMARY | 2018-05-26 09:40 | XMS REPORT ---
Author Author Hung Jaramillo [facility] Address [address] [place], [place] [address] Care Team Providers Care Plant Protection Officer Name Role Phone Hung Jaramillo PCP Unavailable Hung Jaramillo PreferredProvider Unavailable Allergies and Adverse Reactions Name Reaction Notes seasonal allergies Demerol SULFA (SULFONAMIDES) Plan of Treatment Planned Activity Comments Planned Date Planned Time Plan/Goal BMP 02/07/2017 12:00 AM BMP 02/08/2017 12:00 AM CBC With Auto Differential 02/08/2017 12:00 AM Hemoglobin A1c 02/08/2013 12:00 AM [...] per day with meals for 30 days [employer] miscellaneous kit 11/08/2012 11/08/2012 test BS dailyICD-9 [...] alcohol Denies illicit substance abuse 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 per 1mg-[facility] [id number]-Opoomyhju Reviewed 06/14/2011 12:00 AM Depo-Medrol 80 Mg [facility] [id number]-Qmohvuqoo Reviewed 01/08/2016 12:00 AM MAMMOGRAM BOTH BREASTS Reviewed 01/08/2016 12:00 AM COMPLETE CBC W/AUTO DIFF WBC Reviewed 01/08/2016 12:00 AM COMPREHEN METABOLIC PANEL Reviewed 01/08/2016 12:00 AM LIPID PANEL Reviewed 01/08/2016 12:00 AM GLYCOSYLATED HEMOGLOBIN TEST Reviewed 08/05/2011 12:00 AM DRAIN/INJ JOINT/BURSA W/O US Reviewed 08/05/2011 12:00 AM Kenalog 40 Mg Im-[facility]#5046-2930-59 Reviewed 11/04/2011 12:00 AM DRAIN/INJ JOINT/BURSA W/O US Reviewed 11/04/2011 12:00 AM Kenalog 40 Mg Im-[facility]#4576-3056-09 Reviewed 09/18/2009 12:00 AM COMPLETE CBC W/AUTO [...] MAMMOGRAM SCREENING Reviewed 03/29/2012 12:00 AM Misbah MilesPr-[address]-20 ONEYDA Reviewed 03/29/2012 12:00 AM INJ TENDON [...] FIDE IM Reviewed 01/13/2010 12:00 AM Misbah Ng-[id number] ONEYDA Reviewed 01/13/2010 12:00 AM INJ TENDON SHEATH/LIGAMENT Reviewed 04/07/2010 12:00 AM COMPLETE CBC W/AUTO DIFF WBC Reviewed 04/07/2010 12:00 AM COMPREHEN METABOLIC PANEL Reviewed 04/07/2010 12:00 AM LIPID PANEL Reviewed 04/07/2010 12:00 AM GLYCOSYLATED HEMOGLOBIN TEST Reviewed 05/21/2010 12:00 AM Misbah MilesTd-[address]-20 ONEYDA Reviewed 05/21/2010 12:00 AM INJ TENDON [...] CVX Influenza 05/19/2011 sanofi pasteur PMC Fluzone [id number] Intramuscular Left Deltoid 05/19/2011 02/10/2011 141 Tdap 02/25/2012 sanofi pasteur PMC ADACEL [id number] Intramuscular Left Deltoid 02/25/2012 12/01/2006 999 Pneumococcal 05/16/2013 Kuemu-Jjrvgf-CiwnyosPraginger WAL Prevnar [id number] Intramuscular Left Deltoid 05/16/2013 02/09/2013 133 History [...] 2017 3:12PM Hyponatremia Feb 08 2017 3:12PM Payers Insurance Name Company Name Plan Name Plan Number Policy Number Policy Group Number Start Date BCBS [employer] [place] [id number] Wednesday, 2004 Usd 503 Usd 503 [id number] Wednesday, 2009 Medicare Part A zzzMedicare A [...] 10/04/2012 Office visit Shiva Haywood MD 10/04/2012 [facility] Shiva Haywood MD 10/02/2012 Office visit Shiva Haywood MD 09/13/2012 [facility] Candida Stuart MD 06/28/2012 Office visit Hung Jaramillo MD 05/09/2012 Office visit Hung Jaramillo MD 04/28/2012 Office visit Anil Argutea MD 04/18/2012 Office visit Hung Jaramillo MD [...]
--- OUTSIDE RECORDS SUMMARY | 2018-05-26 09:44 | XMS REPORT ---
Author Author Hung Jaramillo [facility] Address [address] [place], [place] [address] Care Team Providers Care Concrete Floater Name Role Phone Hung Jaramillo PCP Unavailable [...] per day with meals for 30 days [employer] miscellaneous kit 11/08/2012 11/08/2012 test BS dailyICD-9 [...] Description Order Status 04/09/2011 12:00 AM Misbah Ma-[id number] ONEYDA Reviewed 04/09/2011 12:00 AM INJ TENDON [...] Reviewed 06/14/2011 12:00 AM Decadron Inj. per 1mg-[facility] [id number]-Wszxwvuia Reviewed 06/14/2011 12:00 AM Depo-Medrol [address] [facility] [id number]-Almkatkoe Reviewed 01/08/2016 12:00 AM MAMMOGRAM BOTH BREASTS Reviewed 01/08/2016 12:00 AM COMPLETE CBC W/AUTO DIFF WBC Reviewed 01/08/2016 12:00 AM COMPREHEN METABOLIC PANEL Reviewed 01/08/2016 12:00 AM LIPID PANEL Reviewed 01/08/2016 12:00 AM GLYCOSYLATED HEMOGLOBIN TEST Reviewed 08/05/2011 12:00 AM DRAIN/INJ JOINT/BURSA W/O US Reviewed 08/05/2011 12:00 AM Kenalog 40 Mg Im-[facility]#9166-7126-86 Reviewed 11/04/2011 12:00 AM DRAIN/INJ JOINT/BURSA W/O US Reviewed 11/04/2011 12:00 AM Kenalog 40 Mg Im-[facility]#3716-1788-49 Reviewed 09/18/2009 12:00 AM COMPLETE CBC W/AUTO [...] MAMMOGRAM SCREENING Reviewed 03/29/2012 12:00 AM Kenalog [id number]-[id number] ONEYDA Reviewed 03/29/2012 12:00 AM INJ TENDON [...] FIDE IM Reviewed 01/13/2010 12:00 AM Misbah Lu-[address]-20 ONEYDA Reviewed 01/13/2010 12:00 AM INJ TENDON SHEATH/LIGAMENT Reviewed 04/07/2010 12:00 AM COMPLETE CBC W/AUTO DIFF WBC Reviewed 04/07/2010 12:00 AM COMPREHEN METABOLIC PANEL Reviewed 04/07/2010 12:00 AM LIPID PANEL Reviewed 04/07/2010 12:00 AM GLYCOSYLATED HEMOGLOBIN TEST Reviewed 05/21/2010 12:00 AM Misbah To-[address]-20 ONEYDA Reviewed 05/21/2010 12:00 AM INJ TENDON [...] CVX Influenza 05/19/2011 sanofi pasteur PMC Fluzone [id number] Intramuscular Left Deltoid 05/19/2011 02/10/2011 141 Tdap 02/25/2012 sanofi pasteur PMC ADACEL [id number] Intramuscular Left Deltoid 02/25/2012 12/01/2006 999 Pneumococcal 05/16/2013 [facility] [place] Prevnar [id number] Intramuscular Left Deltoid 05/16/2013 02/09/2013 133 History [...] Number Start Date BCBS [employer] [place] [id number] Wednesday, 2004 Usd 503 Usd 503 [id number] Wednesday, 2009 Medicare Part A zzzMedicare A [...] Hung Jaramillo MD 03/26/2014 Office visit Hung Jaramilol MD 10/26/2013 Office visit Hung Jaramillo MD 10/01/2013 Office visit Hung Jaramillo MD 08/13/2013 Office visit Hung Jaramillo MD 05/16/2013 Office visit Hung Jaramillo MD 01/16/2013 Office visit Anil Argueta MD 11/14/2012 Office visit Hung Jaramillo MD 10/09/2012 Office visit Hung Jaramillo MD 10/04/2012 Office visit Shiva Haywood MD 10/04/2012 [facility] Shiva Haywood MD 10/02/2012 Office visit Shiva Haywood MD 09/13/2012 [facility] Candida Stuart MD 06/28/2012 Office visit [...]
--- OUTSIDE RECORDS SUMMARY | 2018-05-26 09:44 | XMS REPORT | Continuity of Care Document ---
Author Author [facility] Address Unknown Phone Unavailable Allergies Active Description Code Type Severity Reaction Onset Reported/Identified Relationship to Patient Clinical Status Yes CODEINE 37628844 DRUG N/A N/A Yes ENVIRONMENTAL [id number] ENVIRONMENTAL N/A N/A Yes MEPERIDINE [id number] DRUG N/A CAUSES SWELLING Yes SULFA (sulfonamide) 51641823 CLASS N/A N/A Yes meperidine [id number] Drug Allergy Unknown N/A 05/22/2018 Yes Sulfa (Sulfonamide Antibiotics) [id number] Drug Allergy Unknown N/A 2017 Medications There is no data. Problems Date Dx Coded Attending Type Code Diagnosis Diagnosed By 05/22/2018 SUNSHINE NINO MD Ot Z01.818 ENCOUNTER FOR OTHER PREPROCEDURAL EXAMIN 05/24/2018 SUNSHINE NINO MD Ot Z01.818 ENCOUNTER FOR OTHER PREPROCEDURAL EXAMIN Procedures There is no data. Results There is no data. Encounters ACCT No. Visit Date/Time Discharge Status Pt. Type Provider Facility Loc./Unit Complaint [id number] 04/15/2017 11:15:47 04/15/2017 23:59:59 [facility] Outpatient Hung Jaramillo [id number] 02/09/2017 09:29:09 02/09/2017 23:59:59 [facility] Outpatient Hung Jaramillo [id number] 02/08/2017 16:06:16 02/08/2017 23:59:59 [facility] Outpatient Hung Jaramillo [id number] 01/31/2017 15:37:06 01/31/2017 23:59:59 [facility] Outpatient Hung Jaramillo [id number] 09/08/2016 11:44:57 09/08/2016 23:59:59 [facility] Outpatient Hung Jaramillo [id number] 07/28/2016 11:51:08 07/28/2016 23:59:59 [facility] Outpatient Hung Jaramillo [id number] 01/16/2016 10:27:43 01/16/2016 23:59:59 CLS Outpatient DottielingerHung [id number] 04/02/2015 10:03:11 04/02/2015 23:59:59 CLS Outpatient HetlingHung owens [id number] 02/24/2015 22:17:26 02/24/2015 23:59:59 CLS Outpatient Bernardino, Sunny P [id number] 02/24/2015 21:44:12 02/24/2015 23:59:59 CLS Outpatient Bernardino, Sunny P [id number] 06/17/2014 15:01:51 06/17/2014 23:59:59 CLS Outpatient HetlingHung owens [id number] 03/26/2014 15:54:53 03/26/2014 23:59:59 CLS Outpatient HetlingHung owens [id number] 10/26/2013 09:57:11 10/26/2013 23:59:59 CLS Outpatient DottielingHung owens [id number] 10/01/2013 16:21:29 10/01/2013 23:59:59 CLS Outpatient DottielingHung owens [id number] 08/13/2013 10:17:46 08/13/2013 23:59:59 CLS Outpatient DottielingHung owens [id number] 04/05/2017 10:59:11 Document Registration [id number] 05/22/2018 06:49:00 05/22/2018 16:17:00 DIS Outpatient SUNSHINE NINO MD [facility] PREOP CATARACT LEFT EYE [id number] 05/26/2018 08:54:00 ACT Outpatient SUNSHINE NINO MD [facility] SDC CATARACT LEFT EYE
--- NOTE | 2018-05-26 10:06 | Ophthalmology Operative Report ---
Cataract removal/placement IOL PREOPERATIVE DIAGNOSIS: Cataract Left Eye POSTOPERATIVE DIAGNOSIS: Cataract Left Eye PROCEDURE: Cataract removal and placement of posterior chamber implant, left eye SURGEON: Deuce Nino ANESTHESIA: Topical with sedation COMPLICATIONS: None ESTIMATED BLOOD LOSS: Minimal DESCRIPTION OF PROCEDURE: After proper informed consent was obtained, the patient, a 72 female, was taken to the Operating Room and the left eye was anesthetized with tetracaine. The left eye was then prepped and draped in the usual manner. A wire lid speculum was placed. A paracentesis was made at the left hand position. Preservative free lidocaine was injected into the anterior chamber followed by viscoelastic. A clear corneal incision was made in the temporal position. A capsulorrhexis was preformed and the central nuclear and cortical material were removed. The posterior capsule was polished and an Rikki 23.0 AU00T0 was placed into the capsular bag. The residual viscoelastic was aspirated and balanced saline solution was injected into the anterior chamber. Moxifloxacin was injected into the anterior chamber. The wound was checked and found to be water tight. The patient tolerated the procedure well without complications. DEUCE NINO MD May 26, 2018 10:06
[2018-05-26 10:20] VITALS: BP 133/72
--- NOTE | 2018-05-26 11:16 | Anesthesia-General Post-Op ---
MAC Patient Condition Mental Status/LOC: Same as Preop Cardiovascular: Satisfactory Nausea/Vomiting: Absent Respiratory: Satisfactory Pain: Controlled Complications: Absent Post Op Complications Complications None Follow Up Care/Instructions Patient Instructions None needed. Anesthesiology Discharge Order Discharge Order Patient is doing well, no complaints, stable vital signs, no apparent adverse anesthesia problems. No complications reported per nursing. FREDRICK ZHU CRNA May 26, 2018 11:16
== END 2018-05-26 10:20 | disposition home or self-care (01) ==
LOC: SDC 08:54
PROVIDERS: ATTEND Specialist
DX: H25.12 Age-related nuclear cataract, left eye (principal); I10 Essential (primary) hypertension; E11.9 Type 2 diabetes mellitus without complications; Z79.84 Long term (current) use of oral hypoglycemic drugs; Z80.1 Family history of malignant neoplasm of trachea, bronchus and lung; Z79.899 Other long term (current) drug therapy; Z96.659 Presence of unspecified artificial knee joint; Z96.649 Presence of unspecified artificial hip joint

== ENCOUNTER 2019-09-19 05:36 | Outpatient (CLI) | payer MEDICARE, OTHER ==
[~2019-09-19] VITALS: Ht 157 cm; Wt 62.0 kg
[~2019-09-19 05:36] MED LIST changes: -ALEN70TA47 PO; +ALEN70TA5 PO; -AMLO5TAB7 PO; +AMLO5TAB9 PO; -MONT10TA24 PO; +MONT10TA26 PO; +RANI-613 PO; -RANI150T46 PO
[2019-09-20] MEDS ORDERED: ATOR20TA66 PO (09:27)
[2019-09-20] MEDS ORDERED: PANT40TA3 PO (09:27)
[2019-09-20] MEDS ORDERED: CANA1TAB6 PO (09:27)
== END 2019-09-20 09:32 | disposition home or self-care (01) ==
LOC: PREOP 05:36
PROVIDERS: ATTEND Specialist
DX: Z01.818 Encounter for other preprocedural examination (principal)

== ENCOUNTER 2019-09-21 09:22 | Day surgery (SDC) | payer MEDICARE, OTHER ==
[~2019-09-21] VITALS: Ht 157 cm; Wt 62.0 kg
[~2019-09-21 09:22] MED LIST changes: +ATOR20TA66 PO; +CANA1TAB6 PO; +PANT40TA3 PO
[2019-09-21] MEDS ORDERED: TIMOLOL MALEATE 0.5% 5 ML (TIMOPTIC) BTL OU PRN (09:45)
[2019-09-21] MEDS ORDERED: LIDOCAINE PF 1% 2 ML VIAL IR PRN (09:45)
[2019-09-21] MEDS ORDERED: POVIDONE (BETADINE) OPHTH SOLN 5% 30 ML OP ONE (09:45)
[2019-09-21] MEDS ORDERED: MOXIFLOXACIN OPHTH SOLN 5 MG/ML 0.3 ML SYRINGE OP ONE (09:45)
[2019-09-21] MEDS: TETRACAINE 0.5% OPHTH SOLN 4 ML BTL (SINGLE DOSE ONLY) OU PRN ×4 (09:57→10:21)
[2019-09-21 09:58] VITALS: BP 153/75
[2019-09-21] MEDS: PHENYLEPHRINE 10% OPHTH (NEO-SYN) 5 ML BTL OU SCH ×3 (10:07→10:21)
[2019-09-21] MEDS: CYCLOPENTOLATE 1% (CYCLOGYL) 2 ML DROPS OP SCH ×3 (10:07→10:21)
--- NOTE | 2019-09-21 10:10 | Ophthalmologist Pre-Op Note ---
Pre-Operative Progress Note H&P Reviewed The H&P was reviewed, patient examined and no changes noted. Date H&P Reviewed: Sep 21, 2019 Time H&P Reviewed: 10:10 Pre-Op Dx Cataract, Right Eye SUNSHINE NINO MD Sep 21, 2019 10:10
[2019-09-21] MEDS ORDERED: MIDAZOLAM 2 MG/2 ML (VERSED) VIAL ONE (10:35)
[2019-09-21 11:10] VITALS: BP 119/54
--- NOTE | 2019-09-21 11:23 | Ophthalmology Operative Report ---
Cataract removal/placement IOL PREOPERATIVE DIAGNOSIS: Cataract Right Eye POSTOPERATIVE DIAGNOSIS: Cataract Right Eye PROCEDURE: Cataract removal and placement of posterior chamber implant, right eye SURGEON: Deuce Nino ANESTHESIA: Topical with sedation COMPLICATIONS: None ESTIMATED BLOOD LOSS: Minimal DESCRIPTION OF PROCEDURE: After proper informed consent was obtained, the patient, a 74 female, was taken to the Operating Room and the right eye was anesthetized with tetracaine. The right eye was then prepped and draped in the usual manner. A wire lid speculum was placed. A paracentesis was made at the left hand position. Preservative free lidocaine was injected into the anterior chamber followed by viscoelastic. A clear corneal incision was made in the temporal position. A capsulorrhexis was preformed and the central nuclear and cortical material were removed. The posterior capsule was polished and Rikki 24.0 AU00T0 IOL was placed into the capsular bag. The residual viscoelastic was aspirated and balanced saline solution was injected into the anterior chamber. Moxifloxacin was injected into the anterior chamber. The wound was checked and found to be water tight. The patient tolerated the procedure well without complications. DEUCE NINO MD Sep 21, 2019 11:02
--- NOTE | 2019-09-21 13:57 | Anesthesia-General Post-Op ---
MAC Patient Condition Mental Status/LOC: Same as Preop Cardiovascular: Satisfactory Nausea/Vomiting: Absent Respiratory: Satisfactory Pain: Controlled Complications: Absent Post Op Complications Complications None Follow Up Care/Instructions Patient Instructions None needed. Anesthesiology Discharge Order Discharge Order Patient is doing well, no complaints, stable vital signs, no apparent adverse anesthesia problems. No complications reported per nursing. REG GREEN CRNA Sep 21, 2019 13:57
--- OUTSIDE RECORDS SUMMARY | 2019-09-25 07:16 | XMS REPORT ---
Author Author Petra Jaramillo Organization [facility] Address [address] [place] [id number] Care Team Providers Care Performance Improvement Consultant Name Role Phone Hung Jaramillo PCP Hung [...] Name Start Date Estimated Completion Date SIG Co mments aspirin 81 mg oral tablet take 1 tablet b y oral route daily *[facility] CONTOUR TEST STRIPS 03/03/2017 TEST BLOOD SUGAR EVERY DAY [facility] CONTOUR TEST STRIPS 05/26/2018 TEST BLOOD S UGAR EVERY DAY alendronate 70 mg oral tablet 06/20/2018 TA KE 1 TABLET BY MOUTH ONCE WEEKLY IN THE MORNING AT LEAST 30 MINUTES BEFORE 1ST FOOD/BEVERAGE OR MEDICATION OF THE DAY Trulicity 1.5 mg/0.5 mL subcutaneous pen injector 11/15/2018 10/17/2019 inject 0.5 milliliter (1.5 mg) by subcutaneous route every 7 days in the abdomen, thigh, or upper arm rotating injection sites for 28 days olmesartan 40 mg oral tablet 11/16/2018 TAKE 1 TABLE T BY MOUTH DAILY glyburide micronized 6 mg oral tablet 12/12/2018 take 1/2 tablet in morning and 1 tablet in evening Protonix 40 mg oral tablet,delayed release (DR/EC) take 1 tablet (40 mg) by oral route once daily amlodipine 5 mg oral tablet 06/01/2019 08/24/2020 TAKE 1 TABLET BY MOUTH ONCE EVERY DAY amoxicillin-pot clavulanate 875-125 mg oral tablet 06/25/2019 TAKE 1 TABLET BY MOUTH EVERY 12 HOURS FOR 7 DAYS montelukast 10 mg oral tablet 07/03/2019 TAKE 1 TABL ET BY MOUTH EVERY DAY Linzess 145 mcg oral capsule 07/03/2019 WOODY E 1 CAPSULE BY MOUTH DAILY ON AN EMPTY STOMACH AT LEAST 30MIN BEFORE 1ST MEAL OF THE DAY Name Start Date Expiration Date SIG Comments amoxicillin 500 mg oral capsule 08/11/2009 08/21/2009 take 2 capsules by oral route 3 times a day for 5 days Medrol (Kurt) 4 mg oral tablets,dose pack 08/11/2009 0 take as directed for 5 days Augmentin 875-125 mg oral tablet 10/23/2009 11/20/2009 take 1 tablet by oral route every 12 hours for 14 days Levaquin 750 mg oral tablet 05/19/2011 06/02/2011 take 1 tablet (750 mg) by oral route once daily for 7 days Medrol (Kurt) 4 mg oral tablets,dose pack 07/15/2011 07/15/2011 take as directed diclofenac sodium 50 mg oral tablet,delayed release (DR/EC) 12/2801/28/2012 TAKE 1 TABLET BY MOUTH TWICE DAILY glyburide micronized 6 mg oral tablet 04/24/2012 06/29/2012 TAKE 1/2 TABLET EACH MORNING AND 1 TABLET EACH EVENING Levaquin 500 mg oral tablet 05/09/2012 05/23/2012 take 1 tablet (500 mg) by oral route once daily for 7 days pantoprazole 40 mg oral tablet,delayed release (DR/EC) 2 06/15/2012 TAKE 1 TABLET BY MOUTH EVERY [...] route every 12 hours for 10 days Zithromax Z-Kurt 250 mg oral tablet 05/21/2013 [...] Pennsaid 1.5 % topical drops 08/05/2011 10/02/2012 candie ly 40 drops to affected area by topical [...] amoxicillin 875 mg oral tablet 10/26/2013 11/23/2013 t adele 1 tablet (875 mg) by oral route every 12 hours for 14 days amoxicillin 875 mg oral tablet 06/17/2014 07/01/2014 t adele 1 tablet (875 mg) by oral route every 12 hours for 14 days Zithromax Z-Kurt 250 mg oral tablet 08/15/2014 take 2 tablets (500 mg) by oral route once daily for 1 day then 1 tablet (250 mg) by oral route once daily for 4 days amoxicillin 875 mg oral tablet 04/02/2015 04/16/2015 t adele 1 tablet (875 mg) by oral route every 12 hours for 14 days Invokana 300 mg oral tablet 01/16/2016 02/15/2016 take 1 tablet (300 mg) by oral route once daily before the first meal of the day for 30 days Tamiflu 75 mg oral capsule 07/28/2016 08/07/2016 take 1 capsule (75 mg) by oral route once daily for 10 days Nexium 40 mg oral capsule,delayed release(DR/EC) [...] MOUTH EVERY 12 HOURS FOR 7 DAYS glyburide micronized 6 mg oral tablet 09/04/2018 TAKE 1/2 TABLET BY MOUTH EACH MORNING AND 1 TABLET BY MOUTH EACH EVENING Oseni 25-30 mg oral tablet 10/31/2018 11/28/2018 take 1 tablet by oral route once daily swallowing whole. Do not crush, chew and/or divide. for 28 days Jentadueto 2.5-1,000 mg oral tablet 11/15/2018 03/15/2019 take 1 tablet by oral route 2 times per day with meals for 30 days Augmentin 875-125 mg oral tablet 06/19/2019 06/26/2019 take 1 tablet by oral route every 12 hours for 7 days Discontinued Name Start Date Discontinued Date SIG Comments Benicar 40 mg oral tablet 09/18/2009 take 1 tablet (40 mg) by oral route once daily Zyrtec 10 mg oral tablet 08/13/2013 take 1 tablet (10 mg) by oral route once daily Ultracet 37.5-325 mg oral tablet 01/13/2010 1 tab bi d/PRN meloxicam 15 mg oral tablet 01/20/2010 02/12/2010 take 1 tablet (15 mg) by oral route once daily for 30 days Anusol-HC 2.5 % rectal cream 09/28/2012 11/14/2012 candie ly to the affected area(s) by topical route [...] amoxicillin 875 mg oral tablet 08/13/2016 09/08/2016 t adele 1 tablet (875 mg) by oral route [...] 7 days Jentadueto 2.5-1,000 mg oral tablet 04/24/2018 11/06/2018 TAKE 1 TABLET BY MOUTH TWICE DAILY WITH MEALS Tresiba FlexTouch U-100 100 unit/mL (3 mL) subcutaneous insu nav pen 11/15/2018 11/15/2018 inject by subcutaneous route as per insulin protocol Problem List Description Status Onset acid reflux Active Diabetes Mellitus, Type II Active Hypercholesterolemia Active Hypertension Active Lumbar spondylosis Active Scoliosis Active SI joint pain Active Vital Signs Date Time BP-Sys(mm[Hg] BP-Park(mm[Hg]) HR(bpm) RR(rpm) Temp WT HT HC BMI BSA BMI Percentile O2 Sat(%) 06/19/2019 3:44:00 PM 130 mm[Hg] 70 mm[Hg] 96 {beats}/min 18 rpm 97.3 F 142 lbs 62 in 25.9719 kg/m2 1.6786 m2 100 % 11/15/2018 10:19:00 AM 132 mm[Hg] 64 mm[Hg] 96 {beats}/min 14 rpm 98.8 F 142 lbs 62 in 25.97 kg/m2 1.68 m2 98 % 10/31/2018 10:00:00 AM 152 mm[Hg] 88 mm[Hg] 85 {beats}/min 14 rpm 98.1 F 146 lbs 62 in 26.7035 kg/m2 1.702 m2 99 % 10/24/2018 10:03:00 AM 140 mm[Hg] 70 mm[Hg] 102 {beats}/min 18 rpm 97.7 F 144.25 lbs 62 in 26.38 kg/m2 1.69 m2 98 % 03/02/2018 1:42:00 PM 144 mm[Hg] 80 mm[Hg] 107 {beats}/min 18 rpm 98.2 F 138.5 lbs 62 in 25.3317 kg/m2 1.6578 m2 97 % 04/15/2017 10:19:00 AM 134 mm[Hg] 76 mm[Hg] 82 {beats}/min 18 rpm 97.4 F 144 lbs 62 in 26.34 kg/m2 1.69 m2 99 % 02/09/2017 8:31:00 AM 132 mm[Hg] 64 mm[Hg] 84 {beats}/min 16 rpm 97.2 F 144 lbs 62 in 26.3377 kg/m2 1.6904 m2 98 % 02/08/2017 3:10:00 PM 130 mm[Hg] 63 mm[Hg] 86 {beats}/min 18 rpm 98.2 F 147 lbs 61 in 27.78 kg/m2 1.69 m2 98 % 01/31/2017 2:57:00 PM 136 mm[Hg] 74 mm[Hg] 88 {beats}/min 16 rpm 98 F 150 lbs 61 in 28.342 kg/m2 1.7112 m2 97 % 09/08/2016 11:14:00 AM 130 mm[Hg] 82 mm[Hg] 86 {beats}/min 16 rpm 98.4 F 147 lbs 61 in 27.78 kg/m2 1.69 m2 98 % 07/28/2016 11:10:00 AM 128 mm[Hg] 74 mm[Hg] 103 {beats}/min 18 rpm 99.6 F 149 lbs 61 in 28.153 kg/m2 1.7055 m2 98 % 01/16/2016 9:31:00 AM 136 mm[Hg] 68 mm[Hg] 102 {beats}/min 16 rpm 98.8 F 150 lbs 61 in 28.34 kg/m2 1.71 m2 97 % 04/02/2015 9:07:00 AM 148 mm[Hg] 80 mm[Hg] 94 {beats}/min 18 rpm 98.9 F 155 lbs 61 in 29.2867 kg/m2 1.7395 m2 01/13/2015 8:33:00 AM 126 mm[Hg] 64 mm[Hg] 71 {beats}/min 18 rpm 98.2 F 156 lbs 61 in 29.48 kg/m2 1.75 m2 12/13/2014 8:33:00 AM 126 mm[Hg] 76 mm[Hg] 80 {beats}/min 18 rpm 98 F 153 lbs 61 in 28.91 kg/m2 1.73 m2 06/17/2014 2:06:00 PM 124 mm[Hg] 68 mm[Hg] 96 {beats}/min 20 rpm 97.3 F 153 lbs 61 in 28.9088 kg/m2 1.7283 m2 03/26/2014 3:03:00 PM 128 mm[Hg] 64 mm[Hg] 88 {beats}/min 18 rpm 98.8 F 155 lbs 61 in 29.29 kg/m2 1.74 m2 10/26/2013 9:07:00 AM 136 mm[Hg] 78 mm[Hg] 96 {beats}/min 18 rpm 97.6 F 150.375 lbs 61 in 28.4128 kg/m2 1.7134 m2 100 % 10/01/2013 3:36:00 PM 142 mm[Hg] 66 mm[Hg] 107 {beats}/min 18 rpm 99.1 F 152.125 lbs 61 in 28.74 kg/m2 1.72 m2 98 % 08/13/2013 9:18:00 AM 136 mm[Hg] 80 mm[Hg] 88 {beats}/min 18 rpm 98 F 149 lbs 63 in 26.3939 kg/m2 1.7333 m2 05/16/2013 8:50:00 AM 132 mm[Hg] 74 mm[Hg] 88 {beats}/min 18 rpm 98.4 F 150 lbs 63 in 26.57 kg/m2 1.74 m2 01/16/2013 10:33:00 AM 110 mm[Hg] 62 mm[Hg] 84 {beats}/min 16 rpm 96.8 F 141 lbs 63 in 24.9768 kg/m2 1.6861 m2 11/14/2012 3:47:00 PM 120 mm[Hg] 68 mm[Hg] 84 {beats}/min 20 rpm 98.6 F 141 lbs 63 in 24.98 kg/m2 1.69 m2 10/09/2012 9:12:00 AM 142 mm[Hg] 74 mm[Hg] 110 {beats}/min 18 rpm 98.6 F 135 lbs 63 in 23.9139 kg/m2 1.6498 m2 10/04/2012 2:14:00 PM 140 mm[Hg] 80 mm[Hg] 124 {beats}/min 18 rpm 98.3 F 146 lbs 63 in 25.86 kg/m2 1.72 m2 98 % 10/02/2012 3:10:00 PM 120 mm[Hg] 70 mm[Hg] 124 {beats}/min 18 rpm 97.9 F 146.5 lbs 63 in 25.951 kg/m2 1.7187 m2 96 % 06/28/2012 10:01:00 AM 134 mm[Hg] 64 mm[Hg] 88 {beats}/min 18 rpm 97.2 F 152 lbs 64 in 26.09 kg/m2 1.76 m2 05/09/2012 10:35:00 AM 130 mm[Hg] 64 mm[Hg] 88 {beats}/min 18 rpm 98 F 149 lbs 64 in 25.5755 kg/m2 1.747 m2 04/28/2012 8:40:00 AM 108 mm[Hg] 70 mm[Hg] 66 {beats}/min 16 rpm 98.2 F 150 lbs 64 in 25.75 kg/m2 1.75 m2 04/18/2012 2:36:00 PM 125 mm[Hg] 75 mm[Hg] 88 {beats}/min 18 rpm 97.8 F 150 lbs 64 in 25.7472 kg/m2 1.7528 m2 98 % 03/29/2012 9:56:00 AM 132 mm[Hg] 80 mm[Hg] 74 {beats}/min 16 rpm 96.8 F 152 lbs 64 in 26.09 kg/m2 1.76 m2 12/20/2011 8:41:00 AM 112 mm[Hg] 70 mm[Hg] 70 {beats}/min 16 rpm 97.1 F 152 lbs 64 in 26.0905 kg/m2 1.7645 m2 11/04/2011 8:59:00 AM 110 mm[Hg] 60 mm[Hg] 72 {beats}/min 16 rpm 97.5 F 152 lbs 64 in 26.09 kg/m2 1.76 m2 08/05/2011 8:37:00 AM 126 mm[Hg] 64 mm[Hg] 72 {beats}/min 16 rpm 97.8 F 154 lbs 64 in 26.4338 kg/m2 1.776 m2 06/14/2011 10:55:00 AM 148 mm[Hg] 72 mm[Hg] 84 {beats}/min 20 rpm 98.3 F 151 lbs 63.5 in 26.33 kg/m2 1.75 m2 05/19/2011 9:08:00 AM 148 mm[Hg] 82 mm[Hg] 80 {beats}/min 18 rpm 98.6 F 153 lbs 63.5 in 26.6773 kg/m2 1.7633 m2 04/28/2011 8:50:00 AM 110 mm[Hg] 62 mm[Hg] 80 {beats}/min 16 rpm 97.8 F 04/09/2011 10:24:00 AM 124 mm[Hg] 80 mm[Hg] 76 {beats}/min 16 rpm 97.9 F 152 lbs 63.5 in 26.503 kg/m2 1.7576 m2 09/23/2010 10:38:00 AM 140 mm[Hg] 80 mm[Hg] 92 {beats}/min 20 rpm 98.3 F 149 lbs 08/20/2010 10:07:00 AM 150 mm[Hg] 78 mm[Hg] 88 {beats}/min 20 rpm 99.6 F 148 lbs 07/06/2010 8:05:00 AM 124 mm[Hg] 80 mm[Hg] 88 {beats}/min 16 rpm 96.9 F 150 lbs 05/21/2010 8:02:00 AM 110 mm[Hg] 62 mm[Hg] 80 {beats}/min 16 rpm 97.2 F 149.25 lbs 05/08/2010 10:53:00 AM 130 mm[Hg] 74 mm[Hg] 88 {beats}/min 18 rpm 97.7 F 142 lbs 97 % 05/04/2010 4:08:00 PM 122 mm[Hg] 78 mm[Hg] 82 {beats}/min 98.1 F 149.375 lbs 99 % 02/12/2010 1:36:00 PM 126 mm[Hg] 82 mm[Hg] 72 {beats}/min 18 rpm 97.4 F 145 lbs 01/13/2010 10:43:00 AM 132 mm[Hg] 84 mm[Hg] 72 {beats}/min 16 rpm 99 F 1 44 lbs 10/23/2009 2:21:00 PM 130 mm[Hg] 78 mm[Hg] 72 {beats}/min 20 rpm 147 l bs 09/24/2009 4:27:00 PM 134 mm[Hg] 70 mm[Hg] 72 {beats}/min 16 rpm 98.6 F 145 lbs 09/18/2009 8:35:00 AM 144 mm[Hg] 82 mm[Hg] 88 {beats}/min 98.7 F 146 l bs 08/27/2009 4:09:00 PM 142 mm[Hg] 76 mm[Hg] 72 {beats}/min 16 rpm 98.3 F 149 lbs 08/11/2009 3:46:00 PM 154 mm[Hg] 90 mm[Hg] 88 {beats}/min 20 rpm 97.9 F 147.25 lbs 63 in 26.0839 kg/m2 1.723 m2 08/05/2009 9:32:00 AM 154 mm[Hg] 80 mm[Hg] 86 {beats}/min 24 rpm 98.7 F 149 lbs 07/02/2009 11:32:00 AM 148 mm[Hg] 74 mm[Hg] 80 {beats}/min 16 rpm 98.6 F 149 lbs 06/18/2009 4:06:00 PM 152 mm[Hg] 84 mm[Hg] 72 {beats}/min 16 rpm 98.6 F 149 lbs Social History Name Description Comments Lives with spouse in a one-level house with adult grown chi ldren High school graduate Has never used alcohol Denies illicit substance abuse 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 Tobacco Never smoker History of Procedures Date Ordered Description Order Status 04/09/2011 12:00 AM Misbah [id number] ONEYDA Reviewe d 04/09/2011 12:00 AM INJ TENDON SHEATH/LIGAMENT Reviewed 05/06/2011 12:00 AM DRAIN/INJ JOINT/BURSA W/O US Reviewed 05/06/2011 12:00 AM HYALURONAN OR DERIVATIVE, SY NVISC, FOR INTRA-ARTICULAR INJECTION Reviewed 05/13/2011 12:00 AM DRAIN/INJ JOINT/BURSA W/O US Reviewed 05/13/2011 12:00 AM HYALURONAN OR DERIVATIVE, SY NVISC, FOR INTRA-ARTICULAR INJECTION Reviewed 05/20/2011 12:00 AM DRAIN/INJ JOINT/BURSA W/O US Reviewed 05/20/2011 12:00 AM HYALURONAN OR DERIVATIVE, SY NVISC, FOR INTRA-ARTICULAR INJECTION Reviewed 05/19/2011 12:00 AM FLU VACCINE 3 YRS & > IM Reviewed 06/14/2011 12:00 AM Decadron Inj. per 1mg-[facility] [id number] tlinger Reviewed 06/14/2011 12:00 AM Depo-Medrol 80 Mg [facility] [id number] cheli Reviewed 01/08/2016 12:00 AM MAMMOGRAM BOTH BREASTS Reviewed 01/08/2016 12:00 AM COMPLETE CBC W/AUTO DIFF WBC Reviewed 01/08/2016 12:00 AM COMPREHEN METABOLIC PANEL Reviewed 01/08/2016 12:00 AM LIPID PANEL Reviewed 01/08/2016 12:00 AM GLYCOSYLATED HEMOGLOBIN TEST Reviewed 08/05/2011 12:00 AM DRAIN/INJ JOINT/BURSA W/O US Reviewed 08/05/2011 12:00 AM Kenalog 40 Mg Im-[facility]#[id number] Review ed 11/04/2011 12:00 AM DRAIN/INJ JOINT/BURSA W/O US Reviewed 11/04/2011 12:00 AM Kenalog 40 Mg Im-[facility]#[id number] Review ed 09/18/2009 12:00 AM COMPLETE CBC W/AUTO DIFF [...] MAMMOGRAM SCREENING Reviewed 03/29/2012 12:00 AM Misbah [id number] ONEYDA Reviewe d 03/29/2012 12:00 AM INJ TENDON SHEATH/LIGAMENT Reviewed [...] Reviewed 02/08/2013 12:00 AM LIPID PANEL Reviewed 10/24/2018 12:00 AM COMPLETE CBC W/AUTO DIFF WBC Returned 10/24/2018 12:00 AM COMPREHEN METABOLIC PANEL Returned 10/24/2018 12:00 AM GLYCOSYLATED HEMOGLOBIN TEST Returned 10/26/2018 12:00 AM MAMMOGRAM BOTH BREASTS Returned 05/16/2013 12:00 AM PNEUMOCOCCAL VACC 7 FIDE IM Reviewed 03/30/2019 12:00 AM TDAP VACCINE 7 YRS/> IM Reviewed 03/30/2019 12:00 AM THER/PROPH/DIAG INJ SC/IM Reviewed 01/13/2010 12:00 AM Misbah [id number] ONEYDA Reviewe d 01/13/2010 12:00 AM INJ TENDON SHEATH/LIGAMENT Reviewed 04/07/2010 12:00 AM COMPLETE CBC W/AUTO DIFF WBC Reviewed 04/07/2010 12:00 AM COMPREHEN METABOLIC PANEL Reviewed 04/07/2010 12:00 AM LIPID PANEL Reviewed 04/07/2010 12:00 AM GLYCOSYLATED HEMOGLOBIN TEST Reviewed 05/21/2010 12:00 AM Misbah [id number] ONEYDA Reviewe d 05/21/2010 12:00 AM INJ TENDON SHEATH/LIGAMENT Reviewed [...] Description Results 04/14/2010 8:53 AM TRIGLYCERIDES 121.0 mg/dLCHO LESTEROL 177.0 mg/dLHDL 41.0 mg/dLTOT CHOL/HDL 4.3 LDL (CALC) 112.0 mg/dLGLYCOHEMOGLOBIN A1C 7.20 %GLUCOSE 128.0 mg/dLSODIUM 136.0 mmol/LPOTASSIUM 4.20 mmol/LCHLORIDE 100.0 mmol/LCO2 27.0 mmol/LBUN 21.0 mg/dLCREATININE 0.70 mg/dLSGOT/AST 14.0 IU/LSGPT/ALT 12.0 IU/LALK PHOS 74.0 IU/LTOTAL PROTEIN 7.20 g/dLALBUMIN 4.20 g/dLTOTAL BILI 1.20 mg/dLCALCIUM 9.80 mg/dLAGE 64 GFR NonAA 85 GFR AA 103 eGFR >60 mL/min/1.73 m2eGFR AA* >60 WBC 7.7 RBC 4.25 HGB 13.40 g/dLHCT 39.40 %MCV 93.0 fLMCH 31.50 pgMCHC 34.0 g/dLRDW SD 45 RDW CV 13.30 %MPV 9.80 fLPLT 396 NRBC# 0.00 NRBC% 0.0 %NEUT 49.40 %%LYMP 41.50 %%MONO 6.90 %%EOS 1.80 %%BASO 0.40 %#NEUT 3.81 #LYMP 3.20 #MONO 0.53 #EOS 0.14 #BASO 0.03 MANUAL DIFF NOT IND 09/23/2010 11:27 AM GLYCOHEMOGLOBIN A1C 7.60 %GL UCOSE 188.0 mg/dLSODIUM 139.0 mmol/LPOTASSIUM 3.90 mmol/LCHLORIDE 101.0 mmol/LCO2 26.0 mmol/LBUN 22.0 mg/dLCREATININE 0.70 mg/dLCALCIUM 9.90 mg/dLAGE 65 GFR NonAA 85 GFR AA 103 eGFR >60 mL/min/1.73 m2eGFR AA* >60 WBC 15.0 RBC [...] 11 04/18/2012 3:15 PM GLUCOSE 154.0 mg/dLSODIUM 13 9.0 mmol/LPOTASSIUM 4.80 mmol/LCHLORIDE 104.0 mmol/LCO2 23.0 mmol/LBUN 38.0 mg/dLCREATININE 1.20 [...] % 09/25/2012 9:24 AM GLUCOSE 242.0 mg/dLSODIUM 13 4.0 mmol/LPOTASSIUM 4.60 mmol/LCHLORIDE 98.0 mmol/LCO2 24.0 mmol/LBUN 21.0 mg/dLCREATININE 0.90 mg/dLSGOT/AST 16.0 IU/LSGPT/ALT 22.0 IU/LALK PHOS 117.0 IU/LTOTAL PROTEIN 7.60 g/dLALBUMIN 3.70 g/dLTOTAL BILI 0.60 mg/dLCALCIUM 10.20 mg/dLAGE 67 GFR NonAA 63 GFR AA 76 eGFR 60 eGFR AA* 60 TSH 1.370 uIU/mLWBC 9.6 RBC 3.40 HGB 10.0 g/dLHCT 31.30 %MCV 92.0 fLMCH 29.40 pgMCHC 31.90 g/dLRDW SD [...] 4:34 PM C DIFFICILE NEGATIVE -- C DI FF TOXIN NOT DETECTED SOURCE: STOOL 02/28/2013 8:15 AM WBC 7.7 RBC 3.98 HGB 11.70 g /dLHCT 36.60 %MCV 92.0 fLMCH 29.40 pgMCHC 32.0 g/dLRDW SD 54 RDW CV 15.90 %MPV 10.0 fLPLT 500 NRBC# 0.00 NRBC% 0.0 %NEUT 60.10 %%LYMP 30.0 %%MONO 8.0 %%EOS 1.40 %%BASO 0.50 %#NEUT 4.64 #LYMP 2.32 #MONO 0.62 #EOS 0.11 #BASO 0.04 MANUAL DIFF NOT IND GLUCOSE 152.0 mg/dLSODIUM 138.0 mmol/LPOTASSIUM 4.80 mmol/LCHLORIDE 103.0 mmol/LCO2 24.0 mmol/LBUN 24.0 mg/dLCREATININE 1.0 mg/dLSGOT/AST 16.0 IU/LSGPT/ALT 10.0 IU/LALK PHOS 75.0 IU/LTOTAL PROTEIN 7.70 g/dLALBUMIN 4.30 g/dLTOTAL BILI 0.80 mg/dLCALCIUM 10.60 mg/dLAGE 67 GFR NonAA 56 GFR AA 68 eGFR 56 eGFR AA* 60 TRIGLYCERIDES 135.0 mg/dLCHOLESTEROL 218.0 mg/dLHDL 42.0 mg/dLTOT CHOL/HDL 5.2 LDL (CALC) 149.0 mg/dLHGB A1C 6.80 %Est Avg Glucose 148.5 mg/dL 06/12/2014 8:27 AM HGB A1C 8.60 %Est Avg Glucos e 200.1 mg/dL 07/08/2014 11:22 AM WBC 9.0 RBC 3.96 HGB 12.50 g /dLHCT 37.70 %MCV 95.0 fLMCH 31.60 pgMCHC 33.20 [...] g/dLALBUMIN 4.20 g/dLTOTAL BILI 0.40 mg/dLCALCIUM 10.10 mg/dLAGE 68 GFR NonAA 55 GFR AA 67 eGFR 55 eGFR AA* 60 TSH 2.320 uIU/mLPTH, Intact 26 01/21/2015 8:26 AM TRIGLYCERIDES 140.0 mg/dLCHO LESTEROL 183.0 mg/dLHDL 33.0 mg/dLTOT CHOL/HDL 5.5 LDL (CALC) 122.0 mg/dLGLUCOSE 154.0 mg/dLSODIUM 141.0 mmol/LPOTASSIUM 4.50 mmol/LCHLORIDE 106.0 mmol/LCO2 24.0 mmol/LBUN 33.0 mg/dLCREATININE 1.0 mg/dLSGOT/AST 14.0 IU/LSGPT/ALT 7.0 IU/LALK PHOS 67.0 IU/LTOTAL PROTEIN 6.90 g/dLALBUMIN 4.0 g/dLTOTAL BILI 0.60 mg/dLCALCIUM 9.80 mg/dLAGE 69 GFR NonAA 55 GFR AA 67 [...] mg/dL 01/14/2016 8:55 AM GLUCOSE 217.0 mg/dLSODIUM 13 8.0 mmol/LPOTASSIUM 4.50 mmol/LCHLORIDE 102.0 mmol/LCO2 24.0 mmol/LBUN 28.0 mg/dLCREATININE 1.0 [...] Avg Glucose 243.2 mg/dLTRIGLYCERIDES 150.0 mg/dLCHOLESTEROL 229.0 mg/dLHDL 36.0 mg/dLTOT CHOL/HDL 6.4 LDL (CALC) 163.0 mg/dL History Of Immunizations Name Date Admin Mfg Name Mfg Code Trade Name Lot# Route Inj Vis Given Vis Pub CVX Influenza 05/19/2011 sanofi pasteur PMC FLUZONE [id number] Intramuscular Left Deltoid 05/19/2011 02/10/2011 141 Tdap 02/25/2012 sanofi pasteur PMC ADACEL [id number] Intramuscular L eft Deltoid 02/25/2012 12/01/2006 999 Pneumococcal 05/16/2013 Alycia Calderon [id number] Intramuscular Left Deltoid 05/16/2013 02/09/2013 133 Tdap 03/30/2019 GlaxoSmithKline SKB BOOSTRIX [id number] Intramuscular Right Deltoid 03/30/2019 07/18/2020 115 Tdap 03/30/2019 GlaxoSmithKline SKB BOOSTRIX [id number] Intramuscular Right Deltoid 03/30/2019 07/18/2020 115 Influenza 04/21/2019 Not Entered NE FLUZONE-HIGH DOSE [id number] Intram uscular Left Arm 04/21/2019 07/18/2020 135 History of Past Illness Name Date of Onset Comments Scoliosis, Idiopathic Jun 18 2009 4:12PM Cervical spondylosis without myelopathy Jun 18 2009 4:12PM SI joint pain Jun 18 2009 4:12PM Diabetes Mellitus, Type II Jul 02 2009 11:38AM acid reflux Diabetes Mellitus, Type II Hypertension Hypercholesterolemia Scoliosis cervical & thoracic Lumbar spondylosis SI joint pain bilateral SI joint p ain & dysfunction Joint Pain Aug 05 2009 [...] for screening mammogram for breast cancer Jan 07 2:34PM Hypertension Jan 08 2016 2:38PM Diabetes [...] screening mammogram for breast cancer Apr 05 2 017 11:00AM Otitis externa Apr 15 2017 10:21AM Hypertension Jul 26 2017 1:42PM Diabetes Mellitus, Type II Jul 26 2017 1:42PM Hyperlipidemia Jul 26 2017 1:42PM Hypertension Mar 02 2018 1:44PM Diabetes Mellitus, Type II Mar 02 2018 1:44PM Diabetes Mellitus, Type II Oct 24 2018 10:07AM Hypertension Oct 24 2018 10:07AM Encounter for screening mammogram for breast cancer Oct 26 2 019 4:17PM Diabetes mellitus out of control Oct 31 2018 10:02AM Diabetes Mellitus, Type II Nov 15 2018 10:23AM Need for Tdap vaccination Mar 30 2019 3:34PM Diabetes Mellitus, Type II Jun 19 2019 3:44PM Non-recurrent acute suppurative otitis m edia of left ear without spontaneous rupture of tympanic membrane Jun 19 2019 3:44PM Payers Insurance Name Company Name Plan Name Plan Number Policy Number [place] Group Number Start Date Medicare RHC Medicare RHC [id number] N/ A [employer] urance [id number] N/A Medicare Part A Medicare - Lab/Xray [id number] N/A BCBS Bcbs [facility] [id number] esdJune 23, 2004 [place] 503 - [place] 503 [id number] , August 05, 2009 Medicare Part A zzzMedicare A Secondary DOES NOT H AVE MEDICARE Wednesday, July 18, 2012 History of Encounters Visit Date Visit Type Provider 06/19/2019 Office visit Hung Jaramillo MD 03/30/2019 Office visit Jammie FAM RN 11/15/2018 Office visit Hung Jaramillo MD 10/31/2018 Office visit Hung Jaramillo MD 10/24/2018 Office visit Hung Jaramillo MD 03/02/2018 Office visit Hung Jaramillo MD 04/15/2017 [...] visit Hung Jaramillo MD 05/13/2011 Office visit nAil Argueta MD 05/06/2011 Office visit Anil Argueta MD 04/28/2011 Office visit Anil Argueta MD 04/09/2011 Office visit Anil Argueta MD 09/23/2010 Office visit Hung Jaramillo MD 08/20/2010 Office visit Hung Jaramillo MD 07/06/2010 Office visit Anil Argueta MD 05/21/2010 Office visit Anil Argueta MD 05/08/2010 Office visit Hung Jarmaillo MD 05/04/2010 Office visit Matthew Rodarte MD [...]
--- OUTSIDE RECORDS SUMMARY | 2019-09-25 07:16 | XMS REPORT ---
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 per 1mg-[facility] [id number] tlinger Reviewed 06/14/2011 12:00 AM Depo-Medrol 80 Mg [facility] [id number] cheli Reviewed 01/08/2016 12:00 AM MAMMOGRAM BOTH BREASTS Reviewed 01/08/2016 12:00 AM COMPLETE CBC W/AUTO DIFF WBC Reviewed 01/08/2016 12:00 AM COMPREHEN METABOLIC PANEL Reviewed 01/08/2016 12:00 AM LIPID PANEL Reviewed 01/08/2016 12:00 AM GLYCOSYLATED HEMOGLOBIN TEST Reviewed 08/05/2011 12:00 AM DRAIN/INJ JOINT/BURSA W/O US Reviewed 08/05/2011 12:00 AM Kenalog 40 Mg Im-[facility]#3729-6496-89 Review ed 11/04/2011 12:00 AM DRAIN/INJ JOINT/BURSA W/O US Reviewed 11/04/2011 12:00 AM Kenalog 40 Mg Im-[facility]#5167-1206-85 Review ed 09/18/2009 12:00 AM COMPLETE CBC [...] MAMMOGRAM SCREENING Reviewed 03/29/2012 12:00 AM Misbah Lr-[id number] ONEYDA Reviewe d 03/29/2012 12:00 AM INJ [...] INJ SC/IM Reviewed 01/13/2010 12:00 AM Misbah MilesRm-[id number] ONEYDA Reviewe d 01/13/2010 12:00 AM INJ TENDON SHEATH/LIGAMENT Reviewed 04/07/2010 12:00 AM COMPLETE CBC W/AUTO DIFF WBC Reviewed 04/07/2010 12:00 AM COMPREHEN METABOLIC PANEL Reviewed 04/07/2010 12:00 AM LIPID PANEL Reviewed 04/07/2010 12:00 AM GLYCOSYLATED HEMOGLOBIN TEST Reviewed 05/21/2010 12:00 AM Misbah Fc-[id number] ONEYDA Reviewe d 05/21/2010 12:00 AM INJ [...] CVX Influenza 05/19/2011 sanofi pasteur PMC FLUZONE [id number] Intramuscular Left Deltoid 05/19/2011 02/10/2011 141 Tdap 02/25/2012 sanofi pasteur PMC ADACEL [id number] Intramuscular L eft Deltoid 02/25/2012 12/01/2006 999 Pneumococcal 05/16/2013 Alycia Calderon [id number] Intramuscular Left Deltoid 05/16/2013 02/09/2013 133 Tdap 03/30/2019 [employer] SKB BOOSTRIX [id number] Intramuscular Right Deltoid 03/30/2019 07/18/2020 115 Tdap 03/30/2019 [employer] SKB BOOSTRIX [id number] Intramuscular Right Deltoid 03/30/2019 07/18/2020 115 Influenza 04/21/2019 Not Entered [place] FLUZONE-HIGH DOSE [id number] Intram uscular Left Arm 04/21/2019 07/18/2020 135 [...] Number Start Date Medicare RHC Medicare RHC [id number] N/ A Guarantee [employer] Guarantee [employer] urance [id number] N/A Medicare Part A Medicare - Lab/Xray [id number] N/A BCBS Bcbs [facility] [id number] esdJune 23, 2004 Usd 503 - [place] Usd 503 [id number] , August 05, 2009 Medicare Part A [...]
--- OUTSIDE RECORDS SUMMARY | 2019-09-25 07:17 | XMS REPORT ---
Author Author Petra Shipman Organization [facility] Address [address] [place] [id number] Care Team Providers Care Fishing Instructor Name Role Phone Jammie Shipman PCP Hung Jaramillo PreferredProvider Allergies and Adverse [...] EVERY DAY amlodipine 5 mg oral tablet 05/11/2018 TAKE 1 TABLET BY MOUTH ONCE EVERY DAY [facility] CONTOUR TEST STRIPS 05/26/2018 TEST BLOOD S UGAR EVERY DAY montelukast 10 mg oral tablet 06/05/2018 TAKE 1 TABL ET BY MOUTH EVERY DAY alendronate 70 mg [...] arm rotating injection sites for 28 days Linzess 145 mcg oral capsule 11/15/2018 WOODY E 1 CAPSULE BY MOUTH DAILY ON AN EMPTY STOMACH AT LEAST 30MIN BEFORE 1ST MEAL OF THE DAY olmesartan 40 mg oral tablet 11/16/2018 TAKE 1 TABLE T BY MOUTH DAILY glyburide micronized 6 mg oral tablet 12/12/2018 take 1/2 tablet in morning and 1 tablet in evening Name Start Date Expiration Date SIG Comments [...] per day with meals for 30 days Discontinued Name Start Date [...] HC BMI BSA BMI Percentile O2 Sat(%) 11/15/2018 10:19:00 AM 132 mm[Hg] 64 mm[Hg] 96 {beats}/min 14 rpm 98.8 F 142 lbs 62 in 25.9719 kg/m2 1.6786 m2 98 % 10/31/2018 10:00:00 AM 152 mm[Hg] 88 mm[Hg] 85 {beats}/min 14 rpm 98.1 F 146 lbs 62 in 26.70 kg/m2 1.70 m2 99 % 10/24/2018 10:03:00 AM 140 mm[Hg] 70 mm[Hg] 102 {beats}/min 18 rpm 97.7 F 144.25 lbs 62 in 26.3834 kg/m2 1.6918 m2 98 % 03/02/2018 1:42:00 PM 144 mm[Hg] 80 mm[Hg] 107 {beats}/min 18 rpm 98.2 F 138.5 lbs 62 in 25.33 kg/m2 1.66 m2 97 % 04/15/2017 10:19:00 AM 134 mm[Hg] 76 mm[Hg] 82 {beats}/min 18 rpm 97.4 F 144 lbs 62 in 26.3377 kg/m2 1.6904 m2 99 % 02/09/2017 8:31:00 AM 132 mm[Hg] 64 mm[Hg] 84 {beats}/min 16 rpm 97.2 F 144 lbs 62 in 26.34 kg/m2 1.69 m2 98 % 02/08/2017 3:10:00 PM 130 mm[Hg] 63 mm[Hg] 86 {beats}/min 18 rpm 98.2 F 147 lbs 61 in 27.7751 kg/m2 1.694 m2 98 % 01/31/2017 2:57:00 PM 136 mm[Hg] 74 mm[Hg] 88 {beats}/min 16 rpm 98 F 150 lbs 61 in 28.34 kg/m2 1.71 m2 97 % 09/08/2016 11:14:00 AM 130 mm[Hg] 82 mm[Hg] 86 {beats}/min 16 rpm 98.4 F 147 lbs 61 in 27.7751 kg/m2 1.694 m2 98 % 07/28/2016 11:10:00 AM 128 mm[Hg] 74 mm[Hg] 103 {beats}/min 18 rpm 99.6 F 149 lbs 61 in 28.15 kg/m2 1.71 m2 98 % 01/16/2016 9:31:00 AM 136 mm[Hg] 68 mm[Hg] 102 {beats}/min 16 rpm 98.8 F 150 lbs 61 in 28.342 kg/m2 1.7112 m2 97 % 04/02/2015 9:07:00 AM 148 mm[Hg] 80 mm[Hg] 94 {beats}/min 18 rpm 98.9 F 155 lbs 61 in 29.29 kg/m2 1.74 m2 01/13/2015 8:33:00 AM 126 mm[Hg] 64 mm[Hg] 71 {beats}/min 18 rpm 98.2 F 156 lbs 61 in 29.4756 kg/m2 1.7451 m2 12/13/2014 8:33:00 AM 126 mm[Hg] 76 [...] alcohol Denies illicit substance abuse 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 per 1mg-[facility] [id number] jim Reviewed 06/14/2011 12:00 AM Depo-Medrol 80 Mg [facility] [id number]-Aehvai ger Reviewed 01/08/2016 12:00 AM MAMMOGRAM BOTH BREASTS Reviewed 01/08/2016 12:00 AM COMPLETE CBC W/AUTO DIFF WBC Reviewed 01/08/2016 12:00 AM COMPREHEN METABOLIC PANEL Reviewed 01/08/2016 12:00 AM LIPID PANEL Reviewed 01/08/2016 12:00 AM GLYCOSYLATED HEMOGLOBIN TEST Reviewed 08/05/2011 12:00 AM DRAIN/INJ JOINT/BURSA W/O US Reviewed 08/05/2011 12:00 AM Kenalog 40 Mg Im-Ndc#5628-2921-95 Review ed 11/04/2011 12:00 AM DRAIN/INJ JOINT/BURSA W/O US Reviewed 11/04/2011 12:00 AM Kenalog 40 Mg Im-Ndc#9590-9610-30 Review ed 09/18/2009 12:00 AM COMPLETE CBC [...] MAMMOGRAM SCREENING Reviewed 03/29/2012 12:00 AM Kenalog [id number]-[id number] ONEYDA Reviewe d 03/29/2012 12:00 AM INJ [...] INJ SC/IM Reviewed 01/13/2010 12:00 AM Misbah Is-[id number] ONEYDA Reviewe d 01/13/2010 12:00 AM INJ TENDON SHEATH/LIGAMENT Reviewed 04/07/2010 12:00 AM COMPLETE CBC W/AUTO DIFF WBC Reviewed 04/07/2010 12:00 AM COMPREHEN METABOLIC PANEL Reviewed 04/07/2010 12:00 AM LIPID PANEL Reviewed 04/07/2010 12:00 AM GLYCOSYLATED HEMOGLOBIN TEST Reviewed 05/21/2010 12:00 AM Misbah [id number] ONEYDA Reviewe d 05/21/2010 12:00 AM INJ [...] CVX Influenza 05/19/2011 sanofi pasteur PMC FLUZONE [id number] Intramuscular Left Deltoid 05/19/2011 02/10/2011 141 Tdap 02/25/2012 sanofi pasteur PMC ADACEL [id number] Intramuscular L eft Deltoid 02/25/2012 12/01/2006 999 Pneumococcal 05/16/2013 Jvgfx-Iotenh-Ljwuqsy-Praxis WAL Prevnar [id number] Intramuscular Left Deltoid 05/16/2013 02/09/2013 133 Tdap 03/30/2019 GlaxoSmithKline SKB BOOSTRIX [id number] Intramuscular Right Deltoid 03/30/2019 07/18/2019 115 Tdap 03/30/2019 GlaxoSmithKline SKB BOOSTRIX [id number] Intramuscular Right Deltoid 03/30/2019 07/18/2019 115 History of Past Illness Name Date of [...] screening mammogram for breast cancer Jan 07 2 016 2:34PM Hypertension Jan 08 2016 2:38PM Diabetes [...] screening mammogram for breast cancer Apr 05 11:00AM Otitis externa Apr 15 2017 10:21AM [...] for Tdap vaccination Mar 30 2019 3:34PM Payers Insurance Name Company Name Plan Name Plan Number Policy Number [place] Group Number Start Date Medicare C Medicare RHC [id number] N/ A Guarantee [employer]ee [employer] Ins urance [id number] N/A Medicare Part A Medicare - Lab/Xray [id number] N/A BCBS Bcbs [facility] [id number] June 23, 2004 Usd 503 - [place] [id number] August 05, 2009 Medicare Part A zzzMedicare A Secondary DOES NOT H AVE MEDICARE Wednesday, July 18, 2012 History of Encounters Visit Date Visit Type Provider 03/30/2019 Office visit Jammie FAM RN 11/15/2018 [...] 10/02/2012 Office visit Shiva Haywood MD 09/13/2012 [facility] Candida Stuart MD 06/28/2012 Office visit Hung [...]
--- OUTSIDE RECORDS SUMMARY | 2019-09-25 07:18 | XMS REPORT ---
Author Author Petra Jaramillo Organization [facility] Address [address] [place], [place] [id number] Care Team Providers Care E/M Engineer Name Role Phone Hung Jaramillo PCP Hung [...] STRIPS 03/03/2017 TEST BLOOD SUGAR EVERY DAY olmesartan 40 mg oral tablet 02/09/2018 TAKE 1 TABLE T BY MOUTH DAILY amlodipine 5 mg oral tablet 05/11/2018 TAKE [...] 1ST FOOD/BEVERAGE OR MEDICATION OF THE DAY Oseni 25-30 mg oral tablet 10/31/2018 11/28/2018 take 1 tablet by oral route once daily swallowing whole. Do not crush, chew and/or divide. for 28 days Trulicity 1.5 mg/0.5 mL subcutaneous pen injector 11/15/2018 10/17/2019 inject 0.5 milliliter (1.5 mg) by subcutaneous route every 7 days in the abdomen, thigh, or upper arm rotating injection sites for 28 days Minnie 145 mcg oral capsule 11/15/2018 WOODY E 1 CAPSULE BY MOUTH DAILY ON AN EMPTY STOMACH AT LEAST 30MIN BEFORE 1ST MEAL OF THE DAY Jentadueto 2.5-1,000 mg oral tablet 11/15/2018 03/15/2019 take 1 tablet by oral route 2 times per day with meals for 30 days Name Start Date Expiration Date SIG [...] AND 1 TABLET BY MOUTH EACH EVENING Discontinued Name Start Date Discontinued Date SIG [...] Percentile O2 Sat(%) 11/15/2018 10:19:00 AM 132 mmHg 64 mmHg 96 bpm 14 rpm 98.8 F 142 lbs 62 in 25.9719 kg/m 1.6786 m 98 % 10/31/2018 10:00:00 AM 152 mmHg 88 mmHg 85 bpm 14 rpm 98.1 F 146 lbs 62 in 26.70 kg/m2 1.70 m2 99 % 10/24/2018 10:03:00 AM 140 mmHg 70 mmHg 102 bpm 18 rpm 97.7 F 144.25 lbs 62 in 26.3834 kg/m 1.6918 m 98 % 03/02/2018 1:42:00 PM 144 mmHg 80 mmHg 107 bpm 18 rpm 98.2 F 138.5 lbs 62 i n 25.33 kg/m2 1.66 m2 97 % 04/15/2017 10:19:00 AM 134 mmHg 76 mmHg 82 bpm 18 rpm 97.4 F 144 lbs 62 in 26.3377 kg/m 1.6904 m 99 % 02/09/2017 8:31:00 AM 132 mmHg [...] 18 rpm 97.9 F 146.5 lbs 63 i n 25.951 kg/m 1.7187 m 96 % 06/28/2012 [...] 16 rpm 97.9 F 152 lbs 63.5 i n 26.503 kg/m 1.7576 m 09/23/2010 10:38:00 AM [...] 20 rpm 97.9 F 147.25 lbs 63 i n 26.0839 kg/m 1.723 m 08/05/2009 9:32:00 AM [...] Denies illicit substance abuse 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 per 1mg-[facility] [id number] tlinger Reviewed 06/14/2011 12:00 AM Depo-Medrol 80 Mg [facility] [id number]-Rvqpxh cheli Reviewed 01/08/2016 12:00 AM MAMMOGRAM BOTH BREASTS Reviewed 01/08/2016 12:00 AM COMPLETE CBC W/AUTO DIFF WBC Reviewed 01/08/2016 12:00 AM COMPREHEN METABOLIC PANEL Reviewed 01/08/2016 12:00 AM LIPID PANEL Reviewed 01/08/2016 12:00 AM GLYCOSYLATED HEMOGLOBIN TEST Reviewed 08/05/2011 12:00 AM DRAIN/INJ JOINT/BURSA W/O US Reviewed 08/05/2011 12:00 AM Kenalog 40 Mg Im-Ndc#7171-4135-98 Review ed 11/04/2011 12:00 AM DRAIN/INJ JOINT/BURSA W/O US Reviewed 11/04/2011 12:00 AM Kenalog 40 Mg Im-Ndc#4058-0284-61 Review ed 09/18/2009 12:00 AM COMPLETE CBC [...] MAMMOGRAM SCREENING Reviewed 03/29/2012 12:00 AM Kenalog [id number]-[id number] ONEYDA Reviewe d 03/29/2012 12:00 AM INJ [...] FIDE IM Reviewed 01/13/2010 12:00 AM Misbah Jf-[id number] ONEYDA Reviewe d 01/13/2010 12:00 AM INJ TENDON SHEATH/LIGAMENT Reviewed 04/07/2010 12:00 AM COMPLETE CBC W/AUTO DIFF WBC Reviewed 04/07/2010 12:00 AM COMPREHEN METABOLIC PANEL Reviewed 04/07/2010 12:00 AM LIPID PANEL Reviewed 04/07/2010 12:00 AM GLYCOSYLATED HEMOGLOBIN TEST Reviewed 05/21/2010 12:[address] Misbah Ct-[id number] ONEYDA Reviewe d 05/21/2010 12:00 AM INJ [...] CVX Influenza 05/19/2011 sanofi pasteur PMC FLUZONE [id number] Intramuscular Left Deltoid 05/19/2011 02/10/2011 141 Tdap 02/25/2012 sanofi pasteur PMC ADACEL [id number] Intramuscular L eft Deltoid 02/25/2012 12/01/2006 999 Pneumococcal 05/16/2013 Alycia WAL Prevnar [id number] Intramuscular Left Deltoid 05/16/2013 02/09/2013 133 History [...] Encounter for screening mammogram for breast cancer Sep 2 017 11:00AM Otitis externa Apr 15 [...] Mellitus, Type II Nov 15 2018 10:23AM Payers Insurance Name Company Name Plan Name Plan Number Policy Number [place] Group Number Start Date Medicare RHC Medicare RHC [id number] N/ A Guarantee [employer] urance [id number] N/A Medicare Part A Medicare - Lab/Xray [id number] N/A BCBS Bcbs [facility] [id number] June 23, 2004 Usd 503 U[place] 503 [id number] Tuesday, anuary 2009 Medicare Part A zzzMedicare A Secondary DOES NOT H AVE MEDICARE Wednesday, July 18, 2012 History of Encounters Visit Date Visit Type Provider 11/15/2018 Office visit Hung Jaramillo MD 10/31/2018 Office visit Hung Jaramillo MD 10/24/2018 Office visit Hung Jaramillo MD 03/02/2018 Office visit Hung Jaramillo MD 04/15/2017 Office visit Hung Jaramillo MD 02/09/2017 Office visit Hung Jaramillo MD 02/08/2017 Office visit Hung Jaramillo MD 01/31/2017 Office visit Hnug Jaramillo MD 09/08/2016 Office visit Hung Jaramillo [...] 02/25/2012 Nurse visit Jeannette Mcgrath RN 01/03/2012 [facility] Albaro [...]
--- OUTSIDE RECORDS SUMMARY | 2019-09-25 07:18 | XMS REPORT ---
Author Author Petra Shipman Organization [facility] Address [address] [place] [id number] Care Team Providers Care Cleaners Name Role Phone Jammie Shipman PCP Hung Jaramillo PreferredProvider Allergies and Adverse Reactions Name Reaction Notes seasonal allergies Demerol SULFA (SULFONAMIDES) Plan of Treatment Planned Activity Comments Planned Date Planned Time Plan/Goal CBC with Auto 07/26/2017 12:00 AM Hemoglobin A1c 02/08/2013 12:00 AM Tdap Vaccine, 7 yrs & older - Nurse Visit Only 03/30/20 19 12:00 AM CBC With Auto Differential 03/26/2014 [...] alcohol Denies illicit substance abuse 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 per 1mg-[facility] [id number]-Yl tlinger Reviewed 06/14/2011 12:00 AM Depo-Medrol 80 Mg [facility] [id number]-Dwynhc ger Reviewed 01/08/2016 12:00 AM MAMMOGRAM BOTH BREASTS Reviewed 01/08/2016 12:00 AM COMPLETE CBC W/AUTO DIFF WBC Reviewed 01/08/2016 12:00 AM COMPREHEN METABOLIC PANEL Reviewed 01/08/2016 12:00 AM LIPID PANEL Reviewed 01/08/2016 12:00 AM GLYCOSYLATED HEMOGLOBIN TEST Reviewed 08/05/2011 12:00 AM DRAIN/INJ JOINT/BURSA W/O US Reviewed 08/05/2011 12:00 AM Kenalog 40 Mg Im-Ndc#2979-1474-35 Review ed 11/04/2011 12:00 AM DRAIN/INJ JOINT/BURSA W/O US Reviewed 11/04/2011 12:00 AM Kenalog 40 Mg Im-Ndc#6144-9728-88 Review ed 09/18/2009 12:00 AM COMPLETE CBC [...] MAMMOGRAM SCREENING Reviewed 03/29/2012 12:00 AM Kenalog Ny-[id number] ONEYDA Reviewe d 03/29/2012 12:00 AM INJ [...] 7 FIDE IM Reviewed 03/30/2019 12:00 AM THER/PROPH/DIAG INJ SC/IM Reviewed 01/13/2010 12:00 AM Misbah [id number]-[id number] ONEYDA Reviewe d 01/13/2010 12:00 AM INJ TENDON SHEATH/LIGAMENT Reviewed 04/07/2010 12:00 AM COMPLETE CBC W/AUTO DIFF WBC Reviewed 04/07/2010 12:00 AM COMPREHEN METABOLIC PANEL Reviewed 04/07/2010 12:00 AM LIPID PANEL Reviewed 04/07/2010 12:00 AM GLYCOSYLATED HEMOGLOBIN TEST Reviewed 05/21/2010 12:00 AM Misbah Ep-[id number] ONEYDA Reviewe d 05/21/2010 12:00 AM INJ [...] 13.0 g/dLHCT 39.0 %MCV 94.0 fLMCH 31.30 pgHC 33.30 g/dLRDW SD 44 RDW [...] CVX Influenza 05/19/2011 sanofi pasteur PMC FLUZONE [id number] Intramuscular Left Deltoid 05/19/2011 02/10/2011 141 Tdap 02/25/2012 sanofi pasteur PMC ADACEL [id number] Intramuscular L eft Deltoid 02/25/2012 12/01/2006 999 Pneumococcal 05/16/2013 Xmqao-Ndbbyd-LbaekooPraginger WAL Prevnar [id number] Intramuscular Left Deltoid 05/16/2013 02/09/2013 133 History [...] screening mammogram for breast cancer Oct 26 019 4:17PM Diabetes mellitus out of control Oct 31 2018 10:02AM Diabetes Mellitus, Type II Nov 15 2018 10:23AM Need for Tdap vaccination Mar 30 2019 3:34PM Payers Insurance Name Company Name Plan Name Plan Number Policy Number [place] Group Number Start Date Medicare RHC Medicare RHC [id number] N/ A Guarantee [employer] urance [id number] N/A Medicare Part A Medicare - Lab/Xray [id number] N/A BCBS Bcbs [facility] [id number] June 23, 2004 Usd 503 - [place] 503 [id number] August 05, 2009 Medicare Part A zzzMedicare [...] 02/25/2012 Nurse visit Jeannette Mcgrath RN 01/03/2012 [facility] Albaro Pina MD 12/20/2011 Office visit [...]
--- OUTSIDE RECORDS SUMMARY | 2019-09-25 07:19 | XMS REPORT ---
Author Author Petra Jaramillo Organization [facility] Address [address] [place] [id number] Care Team Providers Care Senior Business Intelligence Analyst Name Role Phone Hung Jaramillo PCP Hung Jaramillo PreferredProvider Allergies and Adverse Reactions Name Reaction Notes seasonal allergies Demerol SULFA (SULFONAMIDES) Plan of Treatment Planned Activity Comments Planned Date Planned Time Plan/Goal CBC with Auto 07/26/2017 12:00 AM Hemoglobin A1c 02/08/2013 12:00 AM Mammography; bilateral 10/26/2018 12:00 AM CBC With Auto Differential 03/26/2014 [...] TAKE 1 TABLE T BY MOUTH DAILY Linzess 145 mcg oral capsule 04/03/2018 WOODY E 1 CAPSULE BY MOUTH DAILY ON AN EMPTY STOMACH AT LEAST 30MIN BEFORE 1ST MEAL OF THE DAY Jentadueto 2.5-1,000 mg oral tablet 04/24/2018 TAKE 1 TABLET BY MOUTH TWICE DAILY WITH MEALS amlodipine 5 mg oral tablet 05/11/2018 TAKE [...] 1ST FOOD/BEVERAGE OR MEDICATION OF THE DAY Ozempic 1 mg/dose (2 mg/1.5 mL) subcutaneous pen injector 10/31/2018 Oseni 25-30 mg oral tablet 10/31/2018 11/28/2018 take 1 tablet by oral route once daily swallowing whole. Do not crush, chew and/or divide. 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 per 1mg-[facility] [id number]-Yf tlinger Reviewed 06/14/2011 12:00 AM Depo-Medrol 80 Mg [facility] [id number]-Bwhkkh cheli Reviewed 01/08/2016 12:00 AM MAMMOGRAM BOTH BREASTS Reviewed 01/08/2016 12:00 AM COMPLETE CBC W/AUTO DIFF WBC Reviewed 01/08/2016 12:00 AM COMPREHEN METABOLIC PANEL Reviewed 01/08/2016 12:00 AM LIPID PANEL Reviewed 01/08/2016 12:00 AM GLYCOSYLATED HEMOGLOBIN TEST Reviewed 08/05/2011 12:00 AM DRAIN/INJ JOINT/BURSA W/O US Reviewed 08/05/2011 12:00 AM Kenalog 40 Mg Im-[facility]#2027-6892-04 Review ed 11/04/2011 12:00 AM DRAIN/INJ JOINT/BURSA W/O US Reviewed 11/04/2011 12:00 AM Kenalog 40 Mg Im-[facility]#4987-6727-73 Review ed 09/18/2009 12:00 AM COMPLETE CBC [...] MAMMOGRAM SCREENING Reviewed 03/29/2012 12:00 AM Misbah Di-[id number] ONEYDA Reviewe d 03/29/2012 12:00 AM INJ [...] 10/24/2018 12:00 AM GLYCOSYLATED HEMOGLOBIN TEST Returned 05/16/2013 12:00 AM PNEUMOCOCCAL VACC 7 FIDE IM Reviewed 01/13/2010 12:00 AM Misbah [id number] ONEYDA Reviewe d 01/13/2010 12:00 AM INJ TENDON SHEATH/LIGAMENT Reviewed 04/07/2010 12:00 AM COMPLETE CBC W/AUTO DIFF WBC Reviewed 04/07/2010 12:00 AM COMPREHEN METABOLIC PANEL Reviewed 04/07/2010 12:00 AM LIPID PANEL Reviewed 04/07/2010 12:00 AM GLYCOSYLATED HEMOGLOBIN TEST Reviewed 05/21/2010 12:00 AM Misbah Ms-[address]-20 ONEYDA Reviewe d 05/21/2010 12:00 AM INJ [...] CVX Influenza 05/19/2011 sanofi pasteur PMC FLUZONE [id number] Intramuscular Left Deltoid 05/19/2011 02/10/2011 141 Tdap 02/25/2012 sanofi pasteur PMC ADACEL [id number] Intramuscular L eft Deltoid 02/25/2012 12/01/2006 999 Pneumococcal 05/16/2013 Ewerk-Nxsxkj-DylhcevEfe Calderon [id number] Intramuscular Left Deltoid 05/16/2013 02/09/2013 133 History [...] out of control Oct 31 2018 10:02AM Payers Insurance Name Company Name Plan Name Plan Number Policy Number [place] Group Number Start Date Medicare RHC Medicare RHC [id number] N/ A Guarantee [employer] urance [id number] N/A Medicare Part A Medicare - Lab/Xray [id number] N/A BCBS [facility]bs [facility] [place] [id number] June 23, 2004 Usd 503 Usd 503 [id number] Tuesday, anuary 2009 Medicare Part A zzzMedicare A Secondary DOES NOT H AVE MEDICARE Wednesday, July 18, 2012 History of Encounters Visit Date Visit Type Provider 10/31/2018 Office visit Hung Jaramillo MD 10/24/2018 [...] 10/02/2012 Office visit Shiva Haywood MD 09/13/2012 [facility] Candida Stuart MD 06/28/2012 Office [...] visit Anil Argueta MD 06/14/2011 Office visit Hugn Jaramillo MD 05/20/2011 Office visit Anil Argueta [...]
--- OUTSIDE RECORDS SUMMARY | 2019-09-25 07:20 | XMS REPORT ---
Author Author Petra Jaramillo Organization [facility] Address [address] [place], [place] [id number] Care Team Providers Care General Merchandise Salesperson Name Role Phone Hung Jaramillo PCP Hung [...] FOOD/BEVERAGE OR MEDICATION OF THE DAY Trulicity 0.75 mg/0.5 mL subcutaneous pen injector 07/06/2018 INJECT 0.5ML (0.75MG) SUB-Q ONCE WEEKLY ROTATING INJECTION SITES glyburide micronized 6 mg oral tablet 09/04/2018 TAKE 1/2 TABLET BY MOUTH EACH MORNING AND 1 TABLET BY MOUTH EACH EVENING Name Start Date Expiration Date SIG Comments [...] HC BMI BSA BMI Percentile O2 Sat(%) 10/24/2018 10:03:00 AM 140 mmHg 70 mmHg [...] Description Order Status 04/09/2011 12:00 AM Misbah [id number] ONEYDA Reviewe d 04/09/2011 12:00 AM INJ [...] AM Decadron Inj. per 1mg-[facility] [id number] adoreinger Reviewed 06/14/2011 12:00 AM Depo-Medrol 80 Mg [facility] [id number]-Bcqtcs cheli Reviewed 01/08/2016 12:00 AM MAMMOGRAM BOTH BREASTS Reviewed 01/08/2016 12:00 AM COMPLETE CBC W/AUTO DIFF WBC Reviewed 01/08/2016 12:00 AM COMPREHEN METABOLIC PANEL Reviewed 01/08/2016 12:00 AM LIPID PANEL Reviewed 01/08/2016 12:00 AM GLYCOSYLATED HEMOGLOBIN TEST Reviewed 08/05/2011 12:00 AM DRAIN/INJ JOINT/BURSA W/O US Reviewed 08/05/2011 12:00 AM Kenalog 40 Mg Im-[facility]#9309-8434-84 Review ed 11/04/2011 12:00 AM DRAIN/INJ JOINT/BURSA W/O US Reviewed 11/04/2011 12:00 AM Kenalog 40 Mg Im-[facility]#5612-8316-87 Review ed 09/18/2009 12:00 AM COMPLETE CBC [...] MAMMOGRAM SCREENING Reviewed 03/29/2012 12:00 AM Misbah [id number] ONEYDA Reviewe d 03/29/2012 12:00 AM INJ [...] FIDE IM Reviewed 01/13/2010 12:00 AM Misbah Is-[id number] ONEYDA Reviewe d 01/13/2010 12:00 AM INJ TENDON SHEATH/LIGAMENT Reviewed 04/07/2010 12:00 AM COMPLETE CBC W/AUTO DIFF WBC Reviewed 04/07/2010 12:00 AM COMPREHEN METABOLIC PANEL Reviewed 04/07/2010 12:00 AM LIPID PANEL Reviewed 04/07/2010 12:00 AM GLYCOSYLATED HEMOGLOBIN TEST Reviewed 05/21/2010 12:00 AM Misbah MilesUl-[address]-20 ONEYDA Reviewe d 05/21/2010 12:00 AM INJ [...] CVX Influenza 05/19/2011 sanofi pasteur PMC FLUZONE [id number] Intramuscular Left Deltoid 05/19/2011 02/10/2011 141 Tdap 02/25/2012 sanofi pasteur PMC ADACEL [id number] Intramuscular L eft Deltoid 02/25/2012 12/01/2006 999 Pneumococcal 05/16/2013 YvettePraginger MICHAEL Prevnar [id number] Intramuscular Left Deltoid 05/16/2013 02/09/2013 133 History [...] breast cancer Oct 26 2 019 4:17PM Payers Insurance Name Company Name Plan Name Plan Number Policy Number [place] Group Number Start Date Medicare C Medicare RHC [id number] N/ A Guarantee [employer] Guarantee [employer] Life Ins urance [id number] N/A Medicare Part A Medicare - Lab/Xray [id number] N/A BCBS Bcbs [facility] [id number] June 23, 2004 Usd 503 Usd 503 [id number] Tuesday, J anuary 2009 Medicare Part A zzzMedicare A Secondary DOES NOT H AVE MEDICARE Wednesday, July 18, 2012 History of Encounters Visit Date Visit Type Provider 10/24/2018 Office visit Hung Jaramillo MD 03/02/2018 [...] visit Anil Argueta MD 11/14/2012 Office visit Hnug Jaramillo MD 10/09/2012 Office visit Hung Jaramillo MD 10/04/2012 Office visit Shiva Haywood MD 10/04/2012 [facility] Shiva Haywood MD 10/02/2012 Office visit Shiva Haywood MD 09/13/2012 [facility] Candida Stuart MD 06/28/2012 Office [...] Hung Jaramillo MD 05/20/2011 Office visit Anil Agrueta MD 05/19/2011 Office visit Hung Jaramillo MD [...] visit Matthew Rodarte MD 02/12/2010 Office visit nAil Argueta MD 01/13/2010 Office visit Anil Argueta [...]
--- OUTSIDE RECORDS SUMMARY | 2019-09-25 07:21 | XMS REPORT ---
Author Author Petra Jaramillo Organization [facility] Address [address] [place], [place] [id number] Care Team Providers Care Can Dragger Name Role Phone Hung Jaramillo PCP Hung Jaramillo PreferredProvider Allergies and Adverse Reactions Name Reaction Notes seasonal allergies Demerol SULFA (SULFONAMIDES) Plan of Treatment Planned Activity Comments Planned Date Planned Time Plan/Goal CBC with Auto 07/26/2017 12:00 AM Hemoglobin A1c 02/08/2013 12:00 AM CBC With Auto Differential 10/24/2018 12:00 AM CMP 10/24/2018 12:00 AM Hemoglobin A1C 10/24/2018 12:00 AM CBC With Auto Differential 03/26/2014 [...] Description Order Status 04/09/2011 12:00 AM Misbah [id number] ONEYDA Stapletone d 04/09/2011 12:00 AM INJ TENDON SHEATH/LIGAMENT [...] per 1mg-[facility] [id number] adoreinger Reviewed 06/14/2011 12:00 AM Depo-Medrol 80 Mg [facility] 2001 [id number]-Kpcfmc cheli Reviewed 01/08/2016 12:00 AM MAMMOGRAM BOTH BREASTS Reviewed 01/08/2016 12:00 AM COMPLETE CBC W/AUTO DIFF WBC Reviewed 01/08/2016 12:00 AM COMPREHEN METABOLIC PANEL Reviewed 01/08/2016 12:00 AM LIPID PANEL Reviewed 01/08/2016 12:00 AM GLYCOSYLATED HEMOGLOBIN TEST Reviewed 08/05/2011 12:00 AM DRAIN/INJ JOINT/BURSA W/O US Reviewed 08/05/2011 12:00 AM Kenalog 40 Mg Im-[facility]#[id number] Review ed 11/04/2011 12:00 AM DRAIN/INJ JOINT/BURSA W/O US Reviewed 11/04/2011 12:00 AM Kenalog 40 Mg Im-[facility]#[id number] Review ed 09/18/2009 12:00 AM COMPLETE CBC [...] MAMMOGRAM SCREENING Reviewed 03/29/2012 12:00 AM Misbah Pq-[id number] ONEYDA Reviewe d 03/29/2012 12:00 AM INJ [...] FIDE IM Reviewed 01/13/2010 12:00 AM Misbah Er-[id number] ONEYDA Reviewe d 01/13/2010 12:00 AM INJ TENDON SHEATH/LIGAMENT Reviewed 04/07/2010 12:00 AM COMPLETE CBC W/AUTO DIFF WBC Reviewed 04/07/2010 12:00 AM COMPREHEN METABOLIC PANEL Reviewed 04/07/2010 12:00 AM LIPID PANEL Reviewed 04/07/2010 12:00 AM GLYCOSYLATED HEMOGLOBIN TEST Reviewed 05/21/2010 12:00 AM Misbah [id number]-[id number] ONEYDA Reviewe d 05/21/2010 12:00 AM INJ [...] CVX Influenza 05/19/2011 [employer] [facility] FLUZONE [id number] Intramuscular Left Deltoid 05/19/2011 02/10/2011 141 Tdap 02/25/2012 [employer] [facility] ADACEL [id number] Intramuscular L eft Deltoid 02/25/2012 12/01/2006 999 Pneumococcal 05/16/2013 Alycia Calderon [id number] Intramuscular Left Deltoid 05/16/2013 02/09/2013 133 History [...] 2018 10:07AM Hypertension Oct 24 2018 10:07AM Payers Insurance Name Company Name Plan Name Plan Number Policy Number [place] Group Number Start Date Medicare [facility] Medicare [facility] [id number] N/ A Guarantee [employer] Guarantee [employer] urance [id number] N/A Medicare Part A Medicare - Lab/Xray [id number] N/A BCBS [facility] [id number] June 23, 2004 Usd 503 Usd 503 [id number] Tuesday, anuary 2009 Medicare Part A zzzMedicare [...]
--- OUTSIDE RECORDS SUMMARY | 2019-09-25 07:29 | XMS REPORT | Continuity of Care Document ---
Demographics Preferred Language Unknown Marital Status Unknown Pentecostal Affiliation Unknown Race Unknown Ethnic Group Unknown Author Organization Unknown Address Unknown Phone Unavailable Allergies Active Description Code Type Severity Reaction Onset Reported/Identified Relationship to Patient Clinical Status Yes CODEINE 95954033 DRUG N/A N/A Yes ENVIRONMENTAL [id number] ENVIR ONMENTAL N/A N/A Yes MEPERIDINE [id number] DRUG N/A CAUSES SWELLING Yes SULFA (sulfonamide) [id number] CLAS S N/A N/A Medications There is no data. Problems Date Dx Coded Attending Type Code Diagnosis Diagnosed By 10/05/2018 P [id number] Co ntusion of right knee, initial encounter 10/05/2018 S [id number] Un specified fall due to ice and snow, initial encounter Procedures There is no data. Results Test Result Range CBC - 07/26/19 09:29 WHITE BLOOD CELL COUNT 9.0 Thousand/uL 3 .8-10.8 RED BLOOD CELL COUNT 4.24 Million/uL 3.8 0-5.10 HEMOGLOBIN 12.7 g/dL 11.7-15.5 HEMATOCRIT 39.8 % 35.0-45.0 MCV 93.9 fL 80.0-100.0 MCH 30.0 pg 27.0-33.0 MCHC 31.9 g/dL 32.0-36.0 RDW 12.6 % 11.0-15.0 PLATELET COUNT 513 Thousand/uL 140-400 MPV 10.4 fL 7.5-12.5 ABSOLUTE NEUTROPHILS 5886 cells/uL 1500- 7800 ABSOLUTE LYMPHOCYTES 2421 cells/uL 850-3 900 ABSOLUTE MONOCYTES 531 cells/uL 200-950 ABSOLUTE EOSINOPHILS 90 cells/uL 15-500 ABSOLUTE BASOPHILS 72 cells/uL 0-200 NEUTROPHILS 65.4 % NRG LYMPHOCYTES 26.9 % NRG MONOCYTES 5.9 % NRG EOSINOPHILS 1.0 % NRG BASOPHILS 0.8 % NRG TSH - 07/26/19 09:29 TSH 2.62 mIU/L 0.40-4.50 SPECIMEN INTEGRITY COMPROMISED - 0 09:29 SPECIMEN INTEGRITY COMPROMISED NRG Encounters ACCT No. Visit Date/Time Discharge Status Pt. Type Provider Facility Loc./Unit Complaint [id number] 10/27/2018 08:44:29 Document Registration [id number] 10/24/2018 10:37:17 Document Registration [id number] 09/05/2018 13:51:43 Document Registration [id number] 04/05/2017 10:59:11 Document Registration [id number] 07/26/2019 09:20:00 Document Registration [id number] 06/19/2019 16:17:38 06/19/2019 23:59: 59 CLS Outpatient HetlingerHung [id number] 03/30/2019 16:25:31 03/30/2019 23:59: 59 CLS Outpatient Jennyfer Ngo [id number] 11/15/2018 11:02:08 11/15/2018 23:59: 59 CLS Outpatient DottielingHung owens [id number] 10/31/2018 10:56:49 10/31/2018 23:59: 59 CLS Outpatient DottielingHung owens [id number] 10/24/2018 11:00:51 10/24/2018 23:59: 59 CLS Outpatient HetlingerHung [id number] 04/15/2017 11:15:47 04/15/2017 23:59: 59 CLS Outpatient HetlingHung owens [id number] 02/09/2017 09:29:09 02/09/2017 23:59: 59 CLS Outpatient HetlingerHung [id number] 02/08/2017 16:06:16 02/08/2017 23:59: 59 CLS Outpatient DottielingHung owens [id number] 01/31/2017 15:37:06 01/31/2017 23:59: 59 CLS Outpatient HetlingHung owens [id number] 09/08/2016 11:44:57 09/08/2016 23:59: 59 CLS Outpatient HetlingerHung [id number] 07/28/2016 11:51:08 07/28/2016 23:59: 59 CLS Outpatient HetlingHung owens [id number] 01/16/2016 10:27:43 01/16/2016 23:59: 59 CLS Outpatient DottielingHung owens [id number] 04/02/2015 10:03:11 04/02/2015 23:59: 59 CLS Outpatient HetlingHung owens [id number] 02/24/2015 22:17:26 02/24/2015 23:59: 59 CLS Outpatient Sunny Lebron [id number] 02/24/2015 21:44:12 02/24/2015 23:59: 59 CLS Outpatient Sunny Lebron [id number] 06/17/2014 15:01:51 06/17/2014 23:59: 59 CLS Outpatient Hung Jaramillo [id number] 03/26/2014 15:54:53 03/26/2014 23:59: 59 CLS Outpatient Hung Jaramillo [id number] 10/26/2013 09:57:11 10/26/2013 23:59: 59 PASCUAL Outpatient Hung Jaramillo [id number] 10/01/2013 16:21:29 10/01/2013 23:59: 59 PASCUAL Outpatient Hung Jaramillo [id number] 08/13/2013 10:17:46 08/13/2013 23:59: 59 PASCUAL Outpatient Hung Jaramillo
== END 2019-09-21 11:09 | disposition home or self-care (01) ==
LOC: SDC 09:22
PROVIDERS: ATTEND Specialist
DX: E11.36 Type 2 diabetes mellitus with diabetic cataract (principal); H25.11 Age-related nuclear cataract, right eye; E11.319 Type 2 diabetes mellitus with unspecified diabetic retinopathy without macular edema; Z88.2 Allergy status to sulfonamides; Z79.84 Long term (current) use of oral hypoglycemic drugs; Z79.899 Other long term (current) drug therapy; I10 Essential (primary) hypertension; K21.9 Gastro-esophageal reflux disease without esophagitis; Z96.649 Presence of unspecified artificial hip joint; Z96.659 Presence of unspecified artificial knee joint

== ENCOUNTER 2021-01-06 05:38 | Outpatient (CLI) | payer MEDICARE, OTHER ==
[~2021-01-06] VITALS: Ht 160 cm; Wt 57.6 kg
[~2021-01-06 05:38] MED LIST changes: -ALEN70TA5 PO; +ALEN70TA80 PO; +AMLO-250 PO; -AMLO5TAB9 PO; -MONT10TA26 PO; +MONT10TA32 PO; +MULT-567 PO; -MULT1TAB69 PO; -PANT40TA3 PO; +PANT40TA52 PO
[2021-01-06] MEDS ORDERED: GLBR5T PO (15:53)
== END 2021-01-06 16:00 | disposition home or self-care (01) ==
LOC: PREOP 05:38 → EDSTATUS 09:15 → PREOP 16:00
PROVIDERS: ATTEND Surgery
DX: Z01.818 Encounter for other preprocedural examination (principal)

== ENCOUNTER 2021-01-13 09:55 | Day surgery (SDC) | payer MEDICARE, OTHER ==
[~2021-01-13] VITALS: Ht 160 cm; Wt 57.6 kg
[~2021-01-13 09:55] MED LIST changes: +GLBR5T PO
[2021-01-13] MEDS ORDERED: LACTATED RINGERS 1,000 ML IV ONE (09:59)
[2021-01-13] MEDS ORDERED: HURRICAINE EXT TUBE (BENZOCAINE) XX PRN (10:00)
[2021-01-13] MEDS ORDERED: LACTATED RINGERS 1,000 ML IV STA (10:00)
[2021-01-13 10:15] VITALS: BP 139/74
[2021-01-13] MEDS ORDERED: proPOfol 200 MG/20 ML (DIPRIVAN) VIAL IV ONE ×2 (11:26→12:11)
[2021-01-13] MEDS ORDERED: MIDAZOLAM 2 MG/2 ML (VERSED) VIAL ONE (11:26)
[2021-01-13 12:30] VITALS: BP 111/53
[2021-01-13 12:35] VITALS: BP 112/56
--- NOTE | 2021-01-13 12:37 | Anesthesia-General Post-Op ---
MAC Patient Condition Mental Status/LOC: Same as Preop Cardiovascular: Satisfactory Nausea/Vomiting: Absent Respiratory: Satisfactory Pain: Controlled Complications: Absent Post Op Complications Complications None Follow Up Care/Instructions Patient Instructions None needed. Anesthesiology Discharge Order Discharge Order Patient is doing well, no complaints, stable vital signs, no apparent adverse anesthesia problems. VAL HELTON DO Jan 13, 2021 12:37
[2021-01-13 13:05] VITALS: BP 133/66
[2021-01-13 13:14] VITALS: BP 133/66
--- NOTE | 2021-01-13 13:20 | Progress Note-Post Operative ---
Post-Operative Progess Note Surgeon (s)/Gas Refrigerator Servicer (s) Surgeon MOODY LAU DO Gas Refrigerator Servicer: na Pre-Operative Diagnosis blood per rectum occult + stool, gerd Post-Operative Diagnosis hiatal hernia, retal mass Procedure & Operative Findings Date of Procedure 01/13/21 Procedure Performed/Findings egd c biopsies, colonoscopy c cold biopsies rectal mass Anesthesia Type per mda Estimated Blood Loss Estimated blood loss (mL): minimal Specimens/Packing Specimens Removed antrum, ge, rectal mass MOODY LAU DO Jan 13, 2021 13:20
--- NOTE | 2021-01-13 17:17 | OPERATIVE REPORT ---
DATE OF SERVICE: 01/13/2021 PREOPERATIVE DIAGNOSES: Blood per rectum, occult positive stool, gastroesophageal reflux disease. POSTOPERATIVE DIAGNOSES: Hiatal hernia, rectal mass. PROCEDURE: EGD with biopsies, colonoscopy with cold biopsies of rectal mass. SURGEON: Moody Young DO ANESTHESIA: Per MDA. ESTIMATED BLOOD LOSS: Minimal. COMPLICATIONS: None. INDICATIONS: The patient is a 75-year-old female with occult positive stool, gastroesophageal reflux disease and occult positive and bright red blood per rectum. She understands risks and benefits of procedure and wished to proceed with procedure. Consent was signed in the chart. DESCRIPTION OF PROCEDURE: The patient was taken to the endoscopy suite, placed in left lateral recumbent position. Timeout was performed. Scope was inserted in mouth, down the esophagus, stomach and into the duodenum without difficulty. There were no polyps, masses or ulcerations within the duodenum. Scope was slowly retracted back into the stomach where it was further insufflated. No polyps, masses or ulcerations. Biopsy of the antrum was obtained. Scope was retroflexed noting a hiatal hernia, no other pathology. Scope was returned to its normal position, slowly withdrawn to distal esophagus. Biopsy of the GE junction was obtained. Scope was then slowly retracted back until completely removed noting no other pathology. Digital rectal exam was performed. The rectal mass palpable on rectal exam. Scope was then inserted, noting the rectal mass, right near the anorectal junction. Scope was then inserted and advanced all the way to cecum with minimal difficulty. Prep was adequate. Scope was then slowly retracted back. There were no polyps, masses or ulcerations in the cecum, ascending, transverse, descending, sigmoid colon. Once in the rectum, scope was retroflexed noting no other pathology, besides the rectal mass. Scope was returned to its normal position, slowly withdrawn. Multiple cold biopsies were obtained and the scope was then slowly retracted back until completely removed. The patient tolerated procedure well without any complications. She was taken to recovery room in stable condition. RECOMMENDATIONS: The patient will need to await biopsy results. Further recommendations pending those results. Job ID: [id number] DocumentID: [id number] Dictated Date: 01/13/2021 13:22:39 Shiftman Date: 01/13/2021 17:16:28 Dictated By: MOODY YOUNG DO
== END 2021-01-13 13:30 | disposition home or self-care (01) ==
LOC: ENDO 09:55
PROVIDERS: ATTEND Surgery
DX: C19 Malignant neoplasm of rectosigmoid junction (principal); K21.00 Gastro-esophageal reflux disease with esophagitis, without bleeding; K44.9 Diaphragmatic hernia without obstruction or gangrene; E11.9 Type 2 diabetes mellitus without complications; I10 Essential (primary) hypertension; E78.00 Pure hypercholesterolemia, unspecified; J30.2 Other seasonal allergic rhinitis; Z79.02 Long term (current) use of antithrombotics/antiplatelets; Z98.890 Other specified postprocedural states; Z88.2 Allergy status to sulfonamides; Z79.899 Other long term (current) drug therapy; Z79.4 Long term (current) use of insulin
CPT/HCPCS: 82947